=== PATIENT | female | born 1965 | race African-American/Black ===

== ENCOUNTER 2016-06-28 11:21 | Inpatient (IN) | payer BC ==
[~2016-06-28] VITALS: Ht 165.1 cm; Wt 75.7 kg
[~2016-06-28 11:21] MED LIST: ASPI325T4 PO; TOVIAZ; baclofen; hydrochlorothiazide; losartan; multivitamin; tizanidine
[2016-06-28] MEDS ORDERED: IV NORMAL SALINE 1000ML BAG 1,000 ML IV ONE (12:15)
[2016-06-28] MEDS ORDERED: KETOROLAC TROMETHAMINE 30 MG/ML SYRINGE. IV ONE (12:15)
--- NOTE | 2016-06-28 12:28 | PHYS DOC ---
Past Medical History Past Medical History: Hypertension, Other Additional Past Medical Histor: MS Past Surgical History: Other Additional Past Surgical Histo: eye sx x 2, myectomy, DETACHED RETINA R EYE Alcohol Use: None Drug Use: None Adult General Chief Complaint Chief Complaint: FLU SYMPTOM HPI HPI 51-year-old female presents with cough and fever as well as significant weakness for the last day with inability to use her walker that she normally uses. Patient does have history of MS and hypertension. Patient is been unable to take her medications today. She has not been able to eat or drink as well. She denies any significant chest pain or shortness of breath. She denies any nausea or vomiting. She denies any abdominal pain. Review of Systems Review of Systems Constitutional: Has fever, denies chills [] Eyes: Denies change in visual acuity, redness, or eye pain [] HENT: Denies nasal congestion or sore throat [] Respiratory: Has cough, denies shortness of breath [] Cardiovascular: No additional information not addressed in HPI [] GI: Denies abdominal pain, nausea, vomiting, bloody stools or diarrhea [] : Denies dysuria or hematuria [] Musculoskeletal: Denies back pain, has joint pain [] Integument: Denies rash or skin lesions [] Neurologic: Denies headache, focal weakness or sensory changes [] Endocrine: Denies polyuria or polydipsia [] Current Medications Current Medications Current Medications Medications (Trade) Dose Ordered Sig/[facility] Start Time Stop Time Status Last Admin Dose Admin Ketorolac Tromethamine (Toradol) 30 mg 1X ONCE 06/28/16 12:15 06/28/16 12:16 DC 06/28/16 13:03 30 MG Ondansetron HCl 4 mg 4 mg PRN Q8HRS PRN 06/28/16 13:00 06/29/16 12:59 Oseltamivir Phosphate (Tamiflu) 75 mg BID 06/28/16 21:00 07/03/16 20:59 Sodium Chloride (Iv Sodium Chloride 0.9% 1000ml Bag) 1,000 ml @ 125 mls/hr Q8H 06/28/16 13:30 06/29/16 13:29 Allergies Allergies Allergies Coded Allergies Type Severity Reaction Last Updated Verified No Known Drug Allergies 06/10/14 No Physical Exam Physical Exam Constitutional: Well developed, well nourished, no acute distress, non-toxic appearance. [] HENT: Normocephalic, atraumatic, bilateral external ears normal, oropharynx moist, no oral exudates, nose normal. [] Eyes: PERRLA, EOMI, conjunctiva normal, no discharge. [] Neck: Normal range of motion, no tenderness, supple, no stridor. [] Cardiovascular:Heart rate regular rhythm, no murmur [] Lungs & Thorax: Bilateral breath sounds clear to auscultation [] Abdomen: Bowel sounds normal, soft, no tenderness, no masses, no pulsatile masses. [] Skin: Warm, dry, no erythema, no rash. [] Back: No tenderness, no CVA tenderness. [] Extremities: No tenderness, no cyanosis, no clubbing, ROM intact, no edema. [] Neurologic: Alert and oriented X 3, significant bilateral upper and lower extremity weakness, normal sensory function. [] Psychologic: Affect normal, judgement normal, mood normal. [] Current Patient Data Vital Signs Vital Signs Date Time Temp Pulse Resp B/P Pulse Ox O2 Delivery O2 Flow Rate FiO2 06/28/16 11:25 99.6 103 18 164/101 96 Room Air 99.6 Lab Values Laboratory Tests Test 06/28/16 12:00 06/28/16 12:45 Influenza Type A Antigen Positive (NEGATIVE) Influenza Type B Antigen Negative (NEGATIVE) White Blood Count 9.6x10^3/uL (4.0-11.0) Red Blood Count 4.47x10^6/uL (3.50-5.40) Hemoglobin 13.1g/dL (12.0-15.5) Hematocrit 37.8% (36.0-47.0) Mean Corpuscular Volume 85fL (79-100) Mean Corpuscular Hemoglobin 29pg (25-35) Mean Corpuscular Hemoglobin Concent 35g/dL (31-37) Red Cell Distribution Width 13.8% (11.5-14.5) Platelet Count 313x10^3/uL (140-400) Neutrophils (%) (Auto) 78% (31-73) H Lymphocytes (%) (Auto) 7% (24-48) L Monocytes (%) (Auto) 13% (0-9) H Eosinophils (%) (Auto) 1% (0-3) Basophils (%) (Auto) 1% (0-3) Neutrophils # (Auto) 7.5x10^3uL (1.8-7.7) Lymphocytes # (Auto) 0.7x10^3/uL (1.0-4.8) L Monocytes # (Auto) 1.2x10^3/uL (0.0-1.1) H Eosinophils # (Auto) 0.1x10^3/uL (0.0-0.7) Basophils # (Auto) 0.0x10^3/uL (0.0-0.2) Sodium Level 139mmol/L (136-145) Potassium Level 3.6mmol/L (3.5-5.1) Chloride Level 102mmol/L (98-107) Carbon Dioxide Level 26mmol/L (21-32) Anion Gap 11 (6-14) Blood Urea Nitrogen 16mg/dL (7-20) Creatinine 0.8mg/dL (0.6-1.0) Estimated GFR (Cockcroft-Gault) 91.9 Glucose Level 113mg/dL (70-99) H Calcium Level 9.4mg/dL (8.5-10.1) Laboratory Tests 06/28/16 12:45 Laboratory Tests 06/28/16 12:45 EKG EKG [] Radiology/Procedures Radiology/Procedures [] Course & Med Decision Making Course & Med Decision Making Pertinent Labs and Imaging studies reviewed. (See chart for details) This 51 yo female is having a likely MS exacerbation secondary to an ongoing viral illness. Patient has significant weakness in her lower extremities. I will be administering an IV fluid bolus and obtaining lab work. Patient will likely be admitted as she is too weak to use her walker at home. Her rapid influenza panel is positive for influenza type A. I will be ordering her a dose of Tamiflu and admitting her to the hospital for her ongoing weakness secondary to MS exacerbation. She'll continue receive IV fluids in the hospital. Return workup was essentially unrevealing. I discussed the need for her admission with the hospitalist, Dr. Melendez, agreed to accept the patient with neurology consult. The neurologist, Dr. De Souza was also notified about the case. She was admitted without incident. Dragon Disclaimer Dragon Disclaimer This electronic medical record was generated, in whole or in part, using a voice recognition dictation system. Departure Departure Impression: Primary Impression: Influenza A Additional Impression: Exacerbation of multiple sclerosis Disposition: ADMITTED INPATIENT Admitting Physician: Noah Melendez Condition: STABLE Referrals: NOAH MELENDEZ MD (PCP) Problem Qualifiers DANIELLE UMANZOR DO Jun 28, 2016 12:28
[2016-06-28 12:44] LABS: OBC FLU VALID
[2016-06-28] MEDS ORDERED: OSELTAMIVIR 75 MG CAPSULE PO STA (12:45)
[2016-06-28] MEDS ORDERED: ONDANSETRON PF 4 MG/2 ML VIAL. IV PRN ×2 (13:00→17:45)
[2016-06-28 13:04] LABS: BASO % 1 % (0-3); EOS % 1 % (0-3); HEMATOCRIT 37.8 % (36.0-47.0); HEMOGLOBIN 13.1 g/dL (12.0-15.5); LYMPH # 0.7 x10^3/uL (1.0-4.8); LYMPH % 7 % (24-48); MEAN CORPUSCULAR HEMOGLOBIN 29 pg (25-35); MEAN CORPUSCULAR HGB CONC 35 g/dL (31-37); MEAN CORPUSCULAR VOLUME 85 fL (79-100); MONO % 13 % (0-9); NEUT % 78 % (31-73); PLATELET COUNT 313 x10^3/uL (140-400); RED BLOOD COUNT 4.47 x10^6/uL (3.50-5.40); RED CELL DISTRIBUTION WIDTH 13.8 % (11.5-14.5); WHITE BLOOD COUNT 9.6 x10^3/uL (4.0-11.0)
[2016-06-28 13:05] LABS: CALCIUM 9.4 mg/dL (8.5-10.1); CREATININE 0.8 mg/dL (0.6-1.0); GFR 91.9; POTASSIUM 3.6 mmol/L (3.5-5.1)
[2016-06-28] MEDS ORDERED: IV NORMAL SALINE 1000ML BAG 1,000 ML IV SCH (13:30)
--- NOTE | 2016-06-28 15:52 | PDOC2 ---
NEUROLOGY CONSULT Date of Admission Date of Admission DATE: 06/28/16 TIME: 15:43 Reason for Consult Reason for Consult: Multiple sclerosis Referring Physician Referring Physician: Dr. Melendez Source Source: Caregiver, Chart review, Patient History of Present Illness History of Present Illness The patient is a 51-year-old right-handed female with a 20 year history of multiple sclerosis for which she sees Dr. Cazares. She has been found to have influenza a and has exacerbation of her multiple sclerosis symptoms. She is weak all over. She has some blurred vision. Her most recent steroid course was 2 months ago while visiting in [place]. She has been on Tysabri and more recently methotrexate for her disease modification agents, but currently is on no such medication and is planning to speak to Dr. Cazares at her next appointment for future plans in this regard. The patient generally gets around with either a scooter, walker, or cane. She has a neurogenic bladder. She continues to work. Past Medical History Cardiovascular: HTN CENTRAL NERVOUS SYSTEM: Other (MS) Past Surgical History Past Surgical History: Other (eye) Family History Family History: CAD Social History Social History Works for the [employer], no alcohol or tobacco. Current Medications Current Medications Current Medications Sodium Chloride (Iv Sodium Chloride 0.9% 1000ml Bag) 1,000 ml @ 1,000 mls/hr 1X ONCE IV Last administered on 06/28/16 13:02; Start 06/28/16 at 12:15; Stop 06/28/16 at 13:14; Status DC Ketorolac Tromethamine (Toradol) 30 mg 1X ONCE IV Last administered on 13:03; Start 06/28/16 at 12:15; Stop 06/28/16 at 12:16; Status DC Oseltamivir Phosphate (Tamiflu) 75 mg 1X STAT PO Last administered on 13:05; Start 06/28/16 at 12:45; Stop 06/28/16 at 12:48; Status DC Ondansetron HCl 4 mg 4 mg PRN Q8HRS PRN IV NAUSEA/VOMITING; Start 06/28/16 at 13:00; Stop 06/29/16 at 12:59 Sodium Chloride (Iv Sodium Chloride 0.9% 1000ml Bag) 1,000 ml @ 125 mls/hr Q8H IV ; Start 06/28/16 at 13:30; Stop 06/29/16 at 13:29 Oseltamivir Phosphate (Tamiflu) 75 mg BID PO ; Start 06/28/16 at 21:00; Stop at 20:59 Active Scripts Active Reported Aspirin 325 Mg Tablet 1 Tab PO DAILY [multivitamin] [tizanidine] [losartan] [toviaz] [baclofen] [hydrochlorothiazide] Allergies Allergies: Coded Allergies: No Known Drug Allergies (Unverified , 06/10/14) ROS Review of System Positive for dyspnea, dysuria, weakness, otherwise 14 point review of systems is negative. Physical Exam Physical Examination PHYSICAL EXAMINATION: Vital signs: see above. General appearance is normal and in no acute distress. HEENT: Normocephalic and nontraumatic. Eyes, nose, ears, and throat are unremarkable. Neck is supple. No lymphadenopathy. No bruits are heard over the carotid artery. No crepitus. NEUROLOGICAL EXAMINATION: Mental Status Examination: Alert. Oriented to time, place, and person. Answers questions and follows commends. Pupils are equal round and reactive to light and accommodation. Funduscopic exam: No papilledema. Extraocular movements are intact, except for saccadic breakdown of smooth-pursuit. Visual field exam shows no defect on the direct confrontation. No motor or sensory deficits on the facial exam. Uvula in the midline and the soft palate elevated symmetrically. No deviation of the tongue to any direction. Gross hearing is normal. Shoulder shrug normal. Muscle tone is normal. Muscle strength is 2-3/ 5. Deep tendon reflexes are 2+. Plantar reflex is with flexion response bilaterally. [id number] test performance is dysmetric. Alternative movements are accurate. Gait not tested. Sensory exam shows no deficits. No cerebellar signs elicited. Vitals VITALS Vital Signs Date Time Temp Pulse Resp B/P Pulse Ox O2 Delivery O2 Flow Rate FiO2 06/28/16 11:25 99.6 103 18 164/101 96 Room Air 99.6 Labs Labs Laboratory Tests Test 06/28/16 12:00 06/28/16 12:45 Influenza Type A Antigen Positive (NEGATIVE) Influenza Type B Antigen Negative (NEGATIVE) White Blood Count 9.6x10^3/uL (4.0-11.0) Red Blood Count 4.47x10^6/uL (3.50-5.40) Hemoglobin 13.1g/dL (12.0-15.5) Hematocrit 37.8% (36.0-47.0) Mean Corpuscular Volume 85fL (79-100) Mean Corpuscular Hemoglobin 29pg (25-35) Mean Corpuscular Hemoglobin Concent 35g/dL (31-37) Red Cell Distribution Width 13.8% (11.5-14.5) Platelet Count 313x10^3/uL (140-400) Neutrophils (%) (Auto) 78% (31-73) Lymphocytes (%) (Auto) 7% (24-48) Monocytes (%) (Auto) 13% (0-9) Eosinophils (%) (Auto) 1% (0-3) Basophils (%) (Auto) 1% (0-3) Neutrophils # (Auto) 7.5x10^3uL (1.8-7.7) Lymphocytes # (Auto) 0.7x10^3/uL (1.0-4.8) Monocytes # (Auto) 1.2x10^3/uL (0.0-1.1) Eosinophils # (Auto) 0.1x10^3/uL (0.0-0.7) Basophils # (Auto) 0.0x10^3/uL (0.0-0.2) Sodium Level 139mmol/L (136-145) Potassium Level 3.6mmol/L (3.5-5.1) Chloride Level 102mmol/L (98-107) Carbon Dioxide Level 26mmol/L (21-32) Anion Gap 11 (6-14) Blood Urea Nitrogen 16mg/dL (7-20) Creatinine 0.8mg/dL (0.6-1.0) Estimated GFR (Cockcroft-Gault) 91.9 Glucose Level 113mg/dL (70-99) Calcium Level 9.4mg/dL (8.5-10.1) Laboratory Tests Test 06/28/16 12:00 06/28/16 12:45 Influenza Type A Antigen Positive (NEGATIVE) Influenza Type B Antigen Negative (NEGATIVE) White Blood Count 9.6x10^3/uL (4.0-11.0) Red Blood Count 4.47x10^6/uL (3.50-5.40) Hemoglobin 13.1g/dL (12.0-15.5) Hematocrit 37.8% (36.0-47.0) Mean Corpuscular Volume 85fL (79-100) Mean Corpuscular Hemoglobin 29pg (25-35) Mean Corpuscular Hemoglobin Concent 35g/dL (31-37) Red Cell Distribution Width 13.8% (11.5-14.5) Platelet Count 313x10^3/uL (140-400) Neutrophils (%) (Auto) 78% (31-73) Lymphocytes (%) (Auto) 7% (24-48) Monocytes (%) (Auto) 13% (0-9) Eosinophils (%) (Auto) 1% (0-3) Basophils (%) (Auto) 1% (0-3) Neutrophils # (Auto) 7.5x10^3uL (1.8-7.7) Lymphocytes # (Auto) 0.7x10^3/uL (1.0-4.8) Monocytes # (Auto) 1.2x10^3/uL (0.0-1.1) Eosinophils # (Auto) 0.1x10^3/uL (0.0-0.7) Basophils # (Auto) 0.0x10^3/uL (0.0-0.2) Sodium Level 139mmol/L (136-145) Potassium Level 3.6mmol/L (3.5-5.1) Chloride Level 102mmol/L (98-107) Carbon Dioxide Level 26mmol/L (21-32) Anion Gap 11 (6-14) Blood Urea Nitrogen 16mg/dL (7-20) Creatinine 0.8mg/dL (0.6-1.0) Estimated GFR (Cockcroft-Gault) 91.9 Glucose Level 113mg/dL (70-99) Calcium Level 9.4mg/dL (8.5-10.1) Assessment/Plan Assessment/Plan Impression: Multiple sclerosis, she may be having an attack, but with the positive influenza , this may be a pseudo-exacerbation Recommendations: Hold off on steroids Supportive care including rehabilitation modalities. Thank you for letting me help with the patient's care. JANUARY FOOTE MD Jun 28, 2016 15:52
--- NOTE | 2016-06-28 17:49 | PDOC ---
Provider Note Provider Note history and physical dictated # [id number] NOAH BAUGH MD Jun 28, 2016 17:49
[2016-06-28] MEDS ORDERED: CLONIDINE HCL 0.1 MG TABLET PO PRN (18:00)
[2016-06-28 18:24] VITALS: BP 165/107
[2016-06-28 19:00] VITALS: BP 161/107
[2016-06-28] MEDS: ACETAMINOPHEN 325 MG TABLET. PO PRN (19:57)
[2016-06-28] MEDS: POTASSIUM CL 20MEQ D5-0.45NACL 1,000 ML IV SCH (20:00)
[2016-06-28] MEDS ORDERED: TIZA4TAB PO ×3 (20:21)
[2016-06-28] MEDS ORDERED: BACL10TA PO (20:21)
[2016-06-28] MEDS ORDERED: BACL20TA PO (20:21)
[2016-06-28] MEDS ORDERED: HYDR12.58 PO (20:21)
[2016-06-28] MEDS ORDERED: LOSA50TA6 PO (20:21)
[2016-06-28] MEDS ORDERED: MULT1TAB52 PO (20:21)
[2016-06-28] MEDS: tiZANidine 4 MG TABLET. PO SCH ×2 (20:58→21:11)
[2016-06-28] MEDS ORDERED: tiZANidine 4 MG TABLET. PO SCH (21:00)
[2016-06-28] MEDS ORDERED: BACLOFEN 10 MG TABLET PO SCH (21:00)
[2016-06-28] MEDS: OXYBUTYNIN CHLORIDE 5 MG TABLET PO SCH (21:11)
[2016-06-28] MEDS: ENOXAPARIN 40 MG/0.4 ML DISP.SYRIN. SQ SCH (21:11)
[2016-06-28] MEDS: OSELTAMIVIR 75 MG CAPSULE PO SCH (21:11)
[2016-06-28 22:45] VITALS: BP 138/86
--- NOTE | 2016-06-29 00:25 | HP ---
ADMIT DATE: 06/28/2016 HISTORY OF PRESENT ILLNESS: The patient is a 51-year-old female who has a history of multiple sclerosis, hypertension, hypothyroidism and neurogenic bladder notes the onset of 1-day history of fever and cough and decreased appetite and generalized weakness. She is unable to use her electric scooter and mobilize. She sought help at the [facility] Emergency Room where an influenza screen was positive for influenza A. She was subsequently admitted to the hospital for further evaluation and treatment of her influenza and generalized weakness. She is not coughing up any sputum. ALLERGIES AND INTOLERANCES: None. MEDICATIONS: Prior to admission include aspirin 325 mg every day, baclofen 10 mg 1 tablet in the morning and 2 tablets in the afternoon and at bedtime. She is also on folic acid 1 mg every day, hydrochlorothiazide 25 mg every day, levothyroxine 100 mcg every day, losartan 50 mg every day, multiple vitamin 1 every day, oxybutynin ER 5 mg every day, potassium chloride 20 mEq every day and tizanidine 2 mg 1 tablet b.i.d. and 2 tablets at bedtime. PAST MEDICAL HISTORY: Significant for hypertension, hypothyroidism, multiple sclerosis. She has a history of hyperlipidemia. She has a neurogenic bladder, goiter, overactive bladder. She had a myomectomy for fibroids, a detached retina repair for the right eye in 1990 and appendectomy. She has multiple sclerosis. SOCIAL HISTORY: She does not drink alcohol nor does she smoke cigarettes. She has an electric wheelchair. FAMILY HISTORY: Noncontributory. REVIEW OF SYSTEMS: GENERAL: She has had fever and chills. CARDIOVASCULAR: She has had no chest pain. PULMONARY: She has a cough. GASTROINTESTINAL: No constipation. SKIN: No rashes. NEUROLOGIC: She has got increasing generalized weakness. ENDOCRINE: No diabetes mellitus. SKIN: No rashes. The rest of systems reviewed are negative except as stated in the history of present illness. PHYSICAL EXAMINATION: VITAL SIGNS: Temperature is 99.6 degrees, pulse 103, respiratory rate 18, blood pressure 164/101, oxygen saturation 96% room air. HEENT: Eyes: Gaze is conjugate. Extraocular muscles are intact. Mouth: Tongue is midline. NECK: There is no cervical lymphadenopathy or thyroid enlargement. HEART: Reveals an S1, S2. There is no S3 or murmur. LUNGS: Clear anteriorly. ABDOMEN: Soft with no hepatosplenomegaly, masses, or tenderness. LOWER EXTREMITIES: Without edema. SKIN: No rashes. NEUROLOGIC: She has no facial weakness. 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 She is unable to dorsi and plantarflex her feet or bend her knees. SKIN: No rashes. REVIEW OF HER LABORATORY TESTS: The influenza A was positive. White count 9.6, hemoglobin 13.1, platelet count 313,000, polys and 7 lymphocytes. Sodium 139, potassium 3.6, chloride 102, total CO2 of 26, BUN 16, creatinine 0.8, blood sugar 113. Apparently, she did have a stress test done on 06/14/[address] and it was negative. ASSESSMENT: 1. Influenza type A. 2. Pseudo exacerbation of multiple sclerosis secondary to influenza type A. 3. Hypertension. The blood pressure is elevated. 4. Hypothyroidism. 5. Mobility and self-care deficits secondary to influenza A and pseudo exacerbation of multiple sclerosis. PLAN: At this time is to consult Dr. Taylor, he has already seen the patient and we will consult Dr. Bonilla for physical rehabilitation. We will treat her with Tamiflu. Start her on some IV fluids, Tylenol and Zofran p.r.n. Renew her home medications including her blood pressure medicines and order some clonidine 0.1 mg every 6 hours p.r.n. for an elevated blood pressure. We will continue with the baclofen and tizanidine. We will also get a chest x-ray. She will receive physical and occupational therapy, start her on Lovenox for deep vein thrombosis prophylaxis and order a low air mattress and have the nurses turn her frequently in bed. NOAH ABUGH MD DR: TONY/clay JOB#: [id number] / [id number]
--- NOTE | 2016-06-29 01:17 | ACF ---
Admission Forms Criteria SYSTEMIC OR INFECTIOUS CONDITION Clinical Indications for Admission to Inpatient Care (Place 'X' for any and all applicable criteria): Hospital admission is needed for appropriate care of the patient because of ANY ONE of the following: []I. Hemodynamic instability indicated by ANY ONE of the following(1)(2)(3)(4 )(5): []a. Vital sign abnormality not readily corrected by appropriate treatment within 12 to 24 hours indicated by ANY ONE of the following: []i) Tachycardia that persists despite appropriate treatment []ii) Hypotension that persists despite appropriate treatment []iii) Orthostatic vital sign changes that persist despite appropriate treatment []b. Vital sign abnormality that is severe indicated by ANY ONE of the following: []i. Inadequate perfusion indicated by ANY ONE of the following: []1) Lactic acidosis (greater than 2 mmol/L) []2) New abnormal capillary refill (greater than 3 seconds) []3) Reduced urine output []4) New altered mental status []5) Myocardial Ischemia []ii. Mean arterial pressure [A] less than 60 mm Hg []iii. Mean arterial pressure[A] less than 70 mm Hg after 30 minutes of appropriate treatment (eg, fluid resuscitation) []iv. Sustained heart rate greater than 120 beats per minute in adult []v. IV inotropic or vasopressor medication required to maintain adequate blood pressure or perfusion []II. Systemic or infectious condition causing severe symptoms or findings not responsive to emergency or observation care treatment (as appropriate) indicated by ANY ONE of the following: []a. Cardiac arrhythmias of immediate concern(1)(2)(3) []b. Severe endocrine disorder (eg, thyrotoxicosis, adrenal insufficiency)(4)(5) []c. Seizures (eg, new or recurrent)(6) []d. New-onset end organ failure or dysfunction as indicated by ANY ONE of the following: []i. Acute unexplained hypoxemia (eg, not from lung infection or chronic disease)(7)(8)(9) []ii. Acute renal failure as indicated by new onset of ANY ONE of the following(10)(11)(12)(13)(14): []1) 3-fold rise in serum creatinine from baseline []2) Serum creatinine greater than 4 mg/dL (354 micromoles/L) with acute rise greater than 0.5 mg/dL (44.2 micromoles/L) []3) Reduction of more than 75% in estimated glomerular filtration rate from baseline. []4) Estimated glomerular filtration rate less than 35 mL/min/1.73m2 ( 0.59 mL/sec/1.73m2) in child younger than 18 years. []5) Cessation of urine output indicated by ALL of the following: []A. Adequate volume status []B. Inadequate urine output as indicated by ANY ONE of the following: []a. Urine output less than 0.3 mL/kg/hr for 24 hours []b. Anuria (urine output less than 0.1 mL/kg/hr) for 12 hours []iii. Acute mental status changes(15) []iv. Acute hepatic failure (eg, plasma bilirubin greater than 4 mg/ dL (68 micromoles/L), new INR greater than 2.0)(16)(17) []e. Unmanageable nausea and vomiting(18) []f. New-onset or uncontrolled central diabetes insipidus(19)(20) []g. Clinically significant dehydration(18)(21) []h. Hypoglycemia(22) []i. Acidosis (pH less than 7.35) or alkalosis (pH greater than 7.45)( 22)(23) []j. Toxic drug level that indicates need for specific monitoring or treatment(24)(25) []k. Severe electrolyte abnormalities indicated by ALL of the following( 1)(2)(3): []i. Electrolytes and associated findings are not as expected for patient baseline or acceptable treatment effects. []ii. Severe abnormalities indicated by ANY ONE of the following: []1) Sodium less than 130 mEq/L (mmol/L) (new) []2) Sodium less than 135 mEq/L (mmol/L) with ANY ONE of the following: []A. Uncorrectable (to near normal or chronic baseline) after trial of outpatient and emergency treatment []B. Altered mental status []C. Seizures []D. Severe medical etiology requiring inpatient management (eg , heart failure, hypovolemia) []3) Sodium greater than 155 mEq/L (mmol/L) []4) Sodium greater than 150 mEq/L (mmol/L) with ANY ONE of the following: []A. Uncorrectable (to near normal or chronic baseline) with outpatient and emergency treatment []B. Altered mental status []C. Seizures []D. Severe medical etiology (eg, hypovolemia, diabetes insipidus) []5) Potassium less than 2.5 mEq/L (mmol/L) despite outpatient and emergency treatment []6) Potassium less than 3 mEq/L (mmol/L) with ANY ONE of the following : []A. Weakness []B. Cardiac abnormality (eg, arrhythmia, conduction disturbance ) []C. Cardiac ischemia []D. Ileus []E. Ongoing medical cause requiring inpatient management (eg, acute renal wasting or SIADH) []F. Other severe symptoms []7) Potassium greater than 6.5 mEq/L (mmol/L) []8) Potassium greater than 5 mEq/L (mmol/L) with ANY ONE of the following: []A. Uncorrectable (to near normal or chronic baseline) with outpatient and emergency treatment []B. Severe ECG findings[A] []C. Acute worsening of renal failure (creatinine greater than 2.5 mg/dL (221 micromoles/L) or significant elevation for age and size) []D. Severe weakness []E. Severe medical etiology (eg, hemolysis, infection, drug overdose) []9) Calcium less than 7 mg/dL (1.75 mmol/L) despite outpatient and emergency treatment(5) []10) Calcium less than 8 mg/dL (2 mmol/L) with significant symptoms or findings (eg, altered mental status, muscle spasms, seizures, breathing difficulty, cardiac abnormality (eg, arrhythmia or conduction disturbance))(5) []11) Calcium greater than 14 mg/dL (3.5 mmol/L)(5) []12) Calcium greater than 12 mg/dL (3 mmol/L) with ANY ONE of the following(5): []A. Uncorrectable (to near normal or chronic baseline) with outpatient and emergency treatment []B. Significant dehydration or hypovolemia as indicated by ALL of the following(3)(6)(7): []a. Not resolved with initial treatments []b. Clinically significant dehydration as indicated by ANY ONE of the following: [](1) Vomiting refractory to outpatient treatment (ie, precluding oral rehydration) [](2) Inability to drink [](3) Hypernatremia or other electrolyte abnormality unable to be corrected with outpatient and emergency treatment [](4) Failure to remain hydrated with outpatient therapy [](5) Reduced urine output [](6) Hypotension [](7) Serious cause for dehydration requiring acute hospitalization ( eg, bowel obstruction, increased intracranial pressure, infectious cause) [](8) Child with ANY ONE of the following(8): [](i) Severe abdominal tenderness [](ii) Adequate care not available at home [](iii) Severe dehydration (greater than 9% loss of body weight) []C. Significant symptoms or findings (eg, altered mental status , cardiac abnormality (eg, arrhythmia, conduction disturbance), malignant etiology requiring inpatient treatment) []13) Phosphorus less than 1 mg/dL (0.32 mmol/L) []14) Phosphorus less than 1.5 mg/dL (0.48 mmol/L) with ANY ONE of the following: []A. Patient unresponsive to outpatient and emergency treatment []B. Significant symptoms or findings (eg, weakness, altered mental status, breathing difficulty, seizures, rhabdomyolysis) []15) Phosphorus greater than 10 mg/dL (3.2 mmol/L) []16) Phosphorus greater than 4.5 mg/dL (1.45 mmol/L) (new) with ANY ONE of the following: []A. Severe medical etiology (eg, crush injury, acute renal failure) []B. Associated hypocalcemia with significant findings (eg, neurologic symptoms, altered mental status, muscle spasms, seizures, breathing difficulty, cardiac abnormality (eg, arrhythmia, conduction disturbance)) []16) Magnesium less than 1 mg/dL (0.41 mmol/L) []17) Magnesium less than 1.5 mg/dL (0.62 mmol/L) with ANY ONE of the following: []A. Patient unresponsive to outpatient and emergency treatment []B. Associated hypocalcemia with significant findings (eg, altered mental status, muscle spasms, seizures, breathing difficulty, cardiac abnormality (eg, arrhythmia, conduction disturbance)) []C. Associated hypokalemia (potassium less than 3 mEq/L (mmol/L )) with risk of arrhythmia []18) Magnesium greater than 4 mEq/L (2 mmol/L) []19) Magnesium greater than 2.5 mEq/L (1.25 mmol/L) with significant symptoms or findings (eg, weakness, altered mental status, cardiac abnormality (eg, arrhythmia, conduction disturbance), breathing difficulty, severe medical etiology (eg, renal failure, hypovolemia)) []20) Uric acid greater than 20 mg/dL (1190 micromoles/L)(9) []21) Uric acid greater than 8 mg/dL (476 micromoles/L) with significant symptoms or findings of tumor lysis syndrome (eg, creatinine greater than 1.5 times upper limit of normal, cardiac abnormality (eg , arrhythmia, conduction disturbance), seizure)(9) []III. High fever or other high-risk infection situation as indicated by ANY ONE of the following(26)(27)(28): []a. Outpatient and observation care antimicrobial treatment unavailable, not effective, or not appropriate []b. Documented bacteremia []c. Temperature greater than 104.9 degrees F (40.5 degrees C) (oral) []d. Temperature greater than 103.1 degrees F (39.5 degrees C) (oral) or less than 96.8 degrees F (36 degrees C) (rectal) that does not respond to emergency treatment and observation care []IV. High-risk febrile neutropenia[A] as indicated by ANY ONE of the following(29)(30)(31)(32): []a. Profound neutropenia[B] anticipated to extend for more than 7 days []b. Hemodynamic instability []c. Hypoxemia []d. Tachypnea []e. Altered mental status []f. New-onset abdominal pain []g. New-onset vomiting or diarrhea []h. Oral or gastrointestinal mucositis that interferes with swallowing or causes severe diarrhea []i. Focal infection (eg, cellulitis, pneumonia, central line or catheter infection, perirectal abscess) []j. Renal insufficiency (eg, GFR of less than 30 mL/min/1.73m2 (0.5 mL/sec /1.73m2)). []k. Severe liver dysfunction (transaminase levels greater than 5 times normal) []l. Platelet count less than 50,000/mm3 (50 x109/L)(33) []m. Leukemia or lymphoma induction therapy []n. Leukemia not in complete remission or with evidence of disease progression []o. Bone marrow transplant patient []p. Alemtuzumab being used for therapy []q. [employer] for Supportive Care in Cancer (MASCC) Risk Index score of less than 21[C](33)(35). []V. Isolation required (eg, tuberculosis that requires isolation, Ebola infection)[D](36)(37)(38)(39)(40) []. Gangrene that requires treatment beyond emergency or observation level care(41)(42) []VII. Antitoxin administration and ongoing observation required (eg, tetanus, botulism)(43)(44) [X]. Suspected infection with rapid progression or severe symptoms as indicated by ANY ONE of the following(45): []a. Streptococcal or staphylococcal toxic shock(46) []b. Diphtheria(47) []c. Hantavirus(48) []d. Severe acute respiratory syndrome(8)(49) []e. Anthrax(50) []f. Ebola[D](36)(37)(38) []g. Necrotizing soft tissue infection(41)(42) []h. Plague(50) [X]i. Other suspected infection that requires care beyond emergency or observation level care []VII. Severe adverse drug or systemic toxin reaction as indicated by ANY ONE of the following(24): []a. Serotonin syndrome(51)(52) []b. Neuroleptic malignant syndrome(51)(52) []c. Cholinergic syndrome with severe symptoms (eg, bronchorrhea, weakness , mental status changes, seizures)(53) []d. Anticholinergic syndrome []e. Sympathetic syndrome with severe symptoms (eg, seizures, mental status changes, cardiac dysrhythmias) []f. Other severe adverse drug or systemic toxin reaction that remains after emergency or observation level care (as appropriate) []VIII. Allergic reaction with severe symptoms (not responsive to emergency or observation care treatment as appropriate), including ANY ONE of the following(54): []a. Airway edema (pharyngeal, epiglottic, or laryngeal edema) []b. Stridor []c. Respiratory failure []d. Bronchospasm []e. Hypotension []IX. Environmental emergency (not responsive to emergency or observation care treatment as appropriate) as indicated by ANY ONE of the following(55)(56): []a. Hyperthermia []b. Heat stroke []c. Heat exhaustion []d. Hypothermia (temperature less than 95 degrees F (35 degrees C) rectal) (57) []e. Electrocution(58) []X. Complications of transplanted organ (ie, not covered elsewhere)[E] indicated by ANY ONE of the following(59): []a. Acute graft rejection (or graft vs. host disease)[F] requiring inpatient management (eg, intravenous immunosuppression)(60)(61)(62)( 63) []b. Acute failure of transplanted organ necessitating inpatient care (eg, cannot be managed in other setting) []c. Infection requiring inpatient management (eg, Hemodynamic instability, need for intravenous antimicrobial treatment)(64)(65) []d. Other complication of transplanted organ requiring inpatient management []XI. Systemic or Infectious Condition condition, symptom, or finding for which emergency and observation care have failed or are not considered appropriate. See General Criteria: Observation Care, General Admission Criteria or Pediatric General Admission Criteria guideline as appropriate. [facility] content created by [facility] has been revised. The portions of the content which have been revised are identified through the use of italic text or in bold and [facility] has neither reviewed nor approved the modified material. All other unmodified content is copyright [facility]. Please see references footnoted in the original [facility] edition 2016 Admission Criteria Met?: Yes DMITRY FITZGERALD Jun 29, 2016 01:17
[2016-06-29] MEDS: ACETAMINOPHEN 325 MG TABLET. PO PRN ×2 (02:18→08:47)
[2016-06-29 02:48] VITALS: BP 114/88
[2016-06-29 06:10] LABS: BASO % 1 % (0-3); EOS % 1 % (0-3); HEMATOCRIT 33.4 % (36.0-47.0); HEMOGLOBIN 12.1 g/dL (12.0-15.5); LYMPH % 17 % (24-48); MEAN CORPUSCULAR HEMOGLOBIN 30 pg (25-35); MEAN CORPUSCULAR HGB CONC 36 g/dL (31-37); MEAN CORPUSCULAR VOLUME 83 fL (79-100); MONO % 17 % (0-9); NEUT % 65 % (31-73); PLATELET COUNT 267 x10^3/uL (140-400); RED BLOOD COUNT 4.04 x10^6/uL (3.50-5.40); RED CELL DISTRIBUTION WIDTH 13.7 % (11.5-14.5); WHITE BLOOD COUNT 6.4 x10^3/uL (4.0-11.0)
[2016-06-29 06:13] LABS: ALBUMIN 3.1 g/dL (3.4-5.0); ALBUMIN/GLOBULIN RATIO 0.8 (1.0-1.7); CALCIUM 8.7 mg/dL (8.5-10.1); CREATININE 0.8 mg/dL (0.6-1.0); GFR 91.9; POTASSIUM 3.3 mmol/L (3.5-5.1); TOTAL BILIRUBIN 0.6 mg/dL (0.2-1.0); TOTAL PROTEIN 6.8 g/dL (6.4-8.2)
[2016-06-29 07:00] VITALS: BP 170/104
--- NOTE | 2016-06-29 07:14 | RAD ---
Portable chest, 06/28/2016: History: Flu, MS, cough Comparison is made to a study from 05/03/2016. The heart size and pulmonary vascularity are normal. No pulmonary infiltrates are seen. There is no evidence of pleural fluid. IMPRESSION: No acute cardiopulmonary abnormality is detected.
[2016-06-29] MEDS: POTASSIUM CHLORIDE 20 MEQ TABLET.ER. PO SCH (08:46)
[2016-06-29] MEDS: BACLOFEN 10 MG TABLET PO SCH ×2 (08:47→20:10)
[2016-06-29] MEDS: MULTIVITAMIN with MINERAL TABLET. PO SCH (08:47)
[2016-06-29] MEDS: OXYBUTYNIN CHLORIDE 5 MG TABLET PO SCH ×3 (08:47→20:09)
[2016-06-29] MEDS: HYDROCHLOROTHIAZIDE 25 MG TABLET PO SCH (08:48)
[2016-06-29] MEDS: ASPIRIN 325 MG TABLET PO SCH (08:49)
[2016-06-29] MEDS: tiZANidine 4 MG TABLET. PO SCH ×3 (08:49→20:11)
[2016-06-29] MEDS: LOSARTAN POTASSIUM 50 MG TABLET. PO SCH (08:50)
[2016-06-29] MEDS: OSELTAMIVIR 75 MG CAPSULE PO SCH ×2 (08:50→20:10)
[2016-06-29] MEDS ORDERED: POTASSIUM CHLORIDE 20 MEQ/15 ML ORAL LIQUID. PO ONE ×2 (09:00→14:15)
[2016-06-29] MEDS: LEVOTHYROXINE 100 MCG TABLET PO SCH (10:15)
[2016-06-29] MEDS: POTASSIUM CL 20MEQ D5-0.45NACL 1,000 ML IV SCH (10:16)
[2016-06-29 10:54] VITALS: BP 129/93
--- NOTE | 2016-06-29 12:11 | PDOC ---
PROGRESS NOTES Assessment Problems Medical Problems: (1) Exacerbation of multiple sclerosis Status: Acute (2) Influenza A Status: Acute Influenza A, already feeling better Multiple sclerosis pseudo-exacerbation, also better Plan Continue supportive care Holding on immunosuppression treatment Subjective Feels better Objective Vital Signs Date Time Temp Pulse Resp B/P Pulse Ox O2 Delivery O2 Flow Rate FiO2 06/29/16 10:54 99.7 74 18 129/93 95 Room Air 99.7 Intake and Output 06/29/16 07:00 Intake Total 1900 ml Balance 1900 ml Intake Oral 900 ml IV Total 1000 ml # Voids 1 PHYSICAL EXAM Alert. Oriented to time, place and person. PERRL. EOMI. CN: no focal findings. Muscle tone: normal. Muscle strength: 2/5 legs, 4/5 arms DTR: 2+ Plantar reflex: silent Gait: not examined in bed. Sensory exam: no abnormal findings. No cerebellar signs elicited. Review of Relevant I have reviewed the following items bridgette (where applicable) has been applied. Labs Laboratory Tests Test 06/28/16 12:00 06/28/16 12:45 06/29/16 04:40 Influenza Type A Antigen Positive (NEGATIVE) Influenza Type B Antigen Negative (NEGATIVE) White Blood Count 9.6x10^3/uL (4.0-11.0) 6.4x10^3/uL (4.0-11.0) Red Blood Count 4.47x10^6/uL (3.50-5.40) 4.04x10^6/uL (3.50-5.40) Hemoglobin 13.1g/dL (12.0-15.5) 12.1g/dL (12.0-15.5) Hematocrit 37.8% (36.0-47.0) 33.4% (36.0-47.0) Mean Corpuscular Volume 85fL (79-100) 83fL (79-100) Mean Corpuscular Hemoglobin 29pg (25-35) 30pg (25-35) Mean Corpuscular Hemoglobin Concent 35g/dL (31-37) 36g/dL (31-37) Red Cell Distribution Width 13.8% (11.5-14.5) 13.7% (11.5-14.5) Platelet Count 313x10^3/uL (140-400) 267x10^3/uL (140-400) Neutrophils (%) (Auto) 78% (31-73) 65% (31-73) Lymphocytes (%) (Auto) 7% (24-48) 17% (24-48) Monocytes (%) (Auto) 13% (0-9) 17% (0-9) Eosinophils (%) (Auto) 1% (0-3) 1% (0-3) Basophils (%) (Auto) 1% (0-3) 1% (0-3) Neutrophils # (Auto) 7.5x10^3uL (1.8-7.7) 4.2x10^3uL (1.8-7.7) Lymphocytes # (Auto) 0.7x10^3/uL (1.0-4.8) 1.0x10^3/uL (1.0-4.8) Monocytes # (Auto) 1.2x10^3/uL (0.0-1.1) 1.1x10^3/uL (0.0-1.1) Eosinophils # (Auto) 0.1x10^3/uL (0.0-0.7) 0.0x10^3/uL (0.0-0.7) Basophils # (Auto) 0.0x10^3/uL (0.0-0.2) 0.0x10^3/uL (0.0-0.2) Sodium Level 139mmol/L (136-145) 143mmol/L (136-145) Potassium Level 3.6mmol/L (3.5-5.1) 3.3mmol/L (3.5-5.1) Chloride Level 102mmol/L (98-107) 106mmol/L (98-107) Carbon Dioxide Level 26mmol/L (21-32) 24mmol/L (21-32) Anion Gap 11 (6-14) 13 (6-14) Blood Urea Nitrogen 16mg/dL (7-20) 12mg/dL (7-20) Creatinine 0.8mg/dL (0.6-1.0) 0.8mg/dL (0.6-1.0) Estimated GFR (Cockcroft-Gault) 91.9 91.9 Glucose Level 113mg/dL (70-99) 122mg/dL (70-99) Calcium Level 9.4mg/dL (8.5-10.1) 8.7mg/dL (8.5-10.1) BUN/Creatinine Ratio 15 (6-20) Total Bilirubin 0.6mg/dL (0.2-1.0) Aspartate Amino Transf (AST/SGOT) 19U/L (15-37) Alanine Aminotransferase (ALT/SGPT) 17U/L (14-59) Alkaline Phosphatase 69U/L (46-116) Total Protein 6.8g/dL (6.4-8.2) Albumin 3.1g/dL (3.4-5.0) Albumin/Globulin Ratio 0.8 (1.0-1.7) Laboratory Tests Test 06/28/16 12:45 06/29/16 04:40 White Blood Count 9.6x10^3/uL (4.0-11.0) 6.4x10^3/uL (4.0-11.0) Red Blood Count 4.47x10^6/uL (3.50-5.40) 4.04x10^6/uL (3.50-5.40) Hemoglobin 13.1g/dL (12.0-15.5) 12.1g/dL (12.0-15.5) Hematocrit 37.8% (36.0-47.0) 33.4% (36.0-47.0) Mean Corpuscular Volume 85fL (79-100) 83fL (79-100) Mean Corpuscular Hemoglobin 29pg (25-35) 30pg (25-35) Mean Corpuscular Hemoglobin Concent 35g/dL (31-37) 36g/dL (31-37) Red Cell Distribution Width 13.8% (11.5-14.5) 13.7% (11.5-14.5) Platelet Count 313x10^3/uL (140-400) 267x10^3/uL (140-400) Neutrophils (%) (Auto) 78% (31-73) 65% (31-73) Lymphocytes (%) (Auto) 7% (24-48) 17% (24-48) Monocytes (%) (Auto) 13% (0-9) 17% (0-9) Eosinophils (%) (Auto) 1% (0-3) 1% (0-3) Basophils (%) (Auto) 1% (0-3) 1% (0-3) Neutrophils # (Auto) 7.5x10^3uL (1.8-7.7) 4.2x10^3uL (1.8-7.7) Lymphocytes # (Auto) 0.7x10^3/uL (1.0-4.8) 1.0x10^3/uL (1.0-4.8) Monocytes # (Auto) 1.2x10^3/uL (0.0-1.1) 1.1x10^3/uL (0.0-1.1) Eosinophils # (Auto) 0.1x10^3/uL (0.0-0.7) 0.0x10^3/uL (0.0-0.7) Basophils # (Auto) 0.0x10^3/uL (0.0-0.2) 0.0x10^3/uL (0.0-0.2) Sodium Level 139mmol/L (136-145) 143mmol/L (136-145) Potassium Level 3.6mmol/L (3.5-5.1) 3.3mmol/L (3.5-5.1) Chloride Level 102mmol/L (98-107) 106mmol/L (98-107) Carbon Dioxide Level 26mmol/L (21-32) 24mmol/L (21-32) Anion Gap 11 (6-14) 13 (6-14) Blood Urea Nitrogen 16mg/dL (7-20) 12mg/dL (7-20) Creatinine 0.8mg/dL (0.6-1.0) 0.8mg/dL (0.6-1.0) Estimated GFR (Cockcroft-Gault) 91.9 91.9 Glucose Level 113mg/dL (70-99) 122mg/dL (70-99) Calcium Level 9.4mg/dL (8.5-10.1) 8.7mg/dL (8.5-10.1) BUN/Creatinine Ratio 15 (6-20) Total Bilirubin 0.6mg/dL (0.2-1.0) Aspartate Amino Transf (AST/SGOT) 19U/L (15-37) Alanine Aminotransferase (ALT/SGPT) 17U/L (14-59) Alkaline Phosphatase 69U/L (46-116) Total Protein 6.8g/dL (6.4-8.2) Albumin 3.1g/dL (3.4-5.0) Albumin/Globulin Ratio 0.8 (1.0-1.7) Medications Current Medications Sodium Chloride (Iv Sodium Chloride 0.9% 1000ml Bag) 1,000 ml @ 1,000 mls/hr 1X ONCE IV Last administered on 06/28/16 13:02; Start 06/28/16 at 12:15; Stop 06/28/16 at 13:14; Status DC Ketorolac Tromethamine (Toradol) 30 mg 1X ONCE IV Last administered on 13:03; Start 06/28/16 at 12:15; Stop 06/28/16 at 12:16; Status DC Oseltamivir Phosphate (Tamiflu) 75 mg 1X STAT PO Last administered on 13:05; Start 06/28/16 at 12:45; Stop 06/28/16 at 12:48; Status DC Ondansetron HCl 4 mg 4 mg PRN Q8HRS PRN IV NAUSEA/VOMITING; Start 06/28/16 at 13:00; Stop 06/29/16 at 12:59 Sodium Chloride (Iv Sodium Chloride 0.9% 1000ml Bag) 1,000 ml @ 125 mls/hr Q8H IV ; Start 06/28/16 at 13:30; Stop 06/28/16 at 17:43; Status DC Oseltamivir Phosphate 75 mg 75 mg BID PO Last administered on 06/29/16 08:50; Start 06/28/16 at 21:00; Stop 07/03/16 at 20:59 Potassium Chloride/Dextrose/ Sod Cl (KCl 20 Meq In D5W-1/2 NS) 1,000 ml @ 75 mls/hr [id number] IV Last administered on 06/29/16 10:16; Start 06/28/16 at 19:00 Enoxaparin Sodium (Lovenox 40mg Syringe) 40 mg Q24H SQ Last administered on 21:11; Start 06/28/16 at 21:00 Acetaminophen (Tylenol) 650 mg PRN Q4HRS PRN PO MILD PAIN / TEMP Last administered on 06/29/16 08:47; Start 06/28/16 at 17:45 Aspirin (Emiliano Aspirin) 325 mg [id number] PO Last administered on 06/29/16 08: 49; Start 06/29/16 at 08:00 Baclofen (Lioresal) 10 mg BID PO ; Start 06/28/16 at 21:00; Stop 06/28/16 at 21: 00; Status DC Baclofen (Lioresal) 20 mg DAILY16 PO ; Start 06/29/16 at 16:00; Stop 06/29/16 at 16:00; Status DC Hydrochlorothiazide (Hydrodiuril) 25 mg DAILY PO Last administered on 08:48; Start 06/29/16 at 09:00 Levothyroxine Sodium (Synthroid) 100 mcg DAILY07 PO Last administered on 10:15; Start 06/29/16 at 07:00 Losartan Potassium (Cozaar) 50 mg DAILY PO Last administered on 06/29/16 08:50 ; Start 06/29/16 at 09:00 Multivitamins/ Calcium (Thera M Plus) 1 tab DAILY PO Last administered on 08:47; Start 06/29/16 at 09:00 Oxybutynin Chloride (Ditropan) 5 mg [id number] PO Last administered on 06/29/16 08 :47; Start 06/28/16 at 21:00 Potassium Chloride (Klor-Con) 20 meq DAILYWBKFT PO Last administered on 08:46; Start 06/29/16 at 08:00 Tizanidine HCl (Zanaflex) 4 mg QHS PO ; Start 06/28/16 at 21:00; Stop 06/28/16 at 21:00; Status DC Tizanidine HCl (Zanaflex) 2 mg BID PO Last administered on 06/29/16 08:49; Start 06/28/16 at 21:00 Ondansetron HCl (Zofran) 4 mg PRN Q6HRS PRN IV NAUSEA/VOMITING; Start 06/28/16 at 17:45 Baclofen (Lioresal) 10 mg DAILY08 PO Last administered on 06/29/16t 08:47; Start 06/29/16 at 08:00 Baclofen (Lioresal) 20 mg BID@14,21 PO ; Start 06/29/16 at 21:00 Tizanidine HCl (Zanaflex) 4 mg QHS PO Last administered on 06/28/16t 21:11; Start 06/28/16 at 21:00 Clonidine HCl (Catapres) 0.1 mg PRN Q6HRS PRN PO HYPERTENSION, SEE COMMENTS; Start 06/28/16 at 18:00 Active Scripts Active Reported Tizanidine Hcl 4 Mg Tablet 4 Mg PO DAILYBFRSUP Tizanidine Hcl 4 Mg Tablet 2 Mg PO DAILY07 Tizanidine Hcl 4 Mg Tablet 1 Tab PO QHS Multivitamins (Multivitamin) 1 Each Tablet 1 Each PO DAILY Hydrochlorothiazide Tablet (Hydrochlorothiazide) 12.5 Mg Tablet 1 Tab PO DAILY Baclofen 20 Mg Tablet 20 Mg PO BIDACLD Baclofen 10 Mg Tablet 10 Mg PO DAILY07 Losartan Potassium 50 Mg Tablet 50 Mg PO DAILY Aspirin 325 Mg Tablet 1 Tab PO DAILY [multivitamin] [tizanidine] [losartan] [baclofen] [hydrochlorothiazide] Vitals/I & O Vital Sign - Last 24 Hours 06/28/16 06/28/16 06/28/16 06/28/16 13:00 13:30 14:00 14:30 Pulse 104 100 104 100 Resp 17 B/P 169/95 155/89 139/83 141/73 Pulse Ox 98 93 93 96 O2 Delivery Room Air Room Air Room Air Room Air 06/28/16 06/28/16 06/28/16 06/28/16 15:00 15:30 16:00 17:30 Pulse 92 108 100 92 Resp 17 20 B/P 139/78 143/84 159/59 177/96 Pulse Ox 94 94 94 92 O2 Delivery Room Air Room Air Room Air Room Air 06/28/16 06/28/16 06/28/16 06/28/16 18:00 18:24 19:00 20:00 Temp 101.0 102.7 101.0 102.7 Pulse 99 121 Resp 18 18 B/P 171/93 165/107 161/107 Pulse Ox 95 97 O2 Delivery Room Air Room Air Room Air 06/28/16 06/28/16 06/29/16 06/29/16 21:46 22:45 02:48 07:00 Temp 102.9 99.9 99.2 102.9 99.9 99.2 Pulse 112 83 82 Resp 18 18 18 B/P 138/86 114/88 170/104 Pulse Ox 95 99 99 O2 Delivery Room Air Room Air Room Air Room Air 06/29/16 06/29/16 06/29/16 08:00 08:50 10:54 Temp 99.7 99.7 Pulse 82 74 Resp 18 B/P 170/104 129/93 Pulse Ox 95 O2 Delivery Room Air Room Air Intake and Output 06/28/16 06/28/16 06/29/16 15:00 23:00 07:00 Intake Total 1000 ml 900 ml Balance 1000 ml 900 ml JANUARY FOOTE MD Jun 29, 2016 12:11
--- NOTE | 2016-06-29 12:44 | PDOC ---
PROGRESS NOTES Subjective Subjective spiked a fever last night but low grade fever now. eating breakfast. feels better. dry cough. cxr negative. lab reviewed., blood pressure is better. Objective Objective Vital Signs Date Time Temp Pulse Resp B/P Pulse Ox O2 Delivery O2 Flow Rate FiO2 06/29/16 10:54 99.7 74 18 129/93 95 Room Air 99.7 Intake and Output 06/29/16 07:00 Intake Total 1900 ml Balance 1900 ml Intake Oral 900 ml IV Total 1000 ml # Voids 1 Physical Exam Abdomen: Soft Heart: Regular rate, Normal S1, Normal S2 Extremities: No edema General: Alert HEENT: Atraumatic Lungs: Clear to auscultation MUSCULOSKELETAL: Other (legs weak) Neuro: Normal speech Psych/Mental Status: Mental status NL Skin: No rashes Assessment Assessment Problems Medical Problems:1. Influenza type A. 2. Pseudo exacerbation of multiple sclerosis secondary to influenza type A. 3. Hypertension. The blood pressure is elevated. 4. Hypothyroidism. 5. Mobility and self-care deficits secondary to influenza A and pseudo exacerbation of multiple sclerosis. fever hypokalemia (1) Exacerbation of multiple sclerosis Status: Acute (2) Influenza A Status: Acute Plan Plan of Care tamiflu iv fluids replete kcl PT and OT consider MARH when medically stable urinalysis Comment Review of Relevant I have reviewed the following items bridgette (where applicable) has been applied. Labs Laboratory Tests Test 06/28/16 12:00 06/28/16 12:45 06/29/16 04:40 Influenza Type A Antigen Positive (NEGATIVE) Influenza Type B Antigen Negative (NEGATIVE) White Blood Count 9.6x10^3/uL (4.0-11.0) 6.4x10^3/uL (4.0-11.0) Red Blood Count 4.47x10^6/uL (3.50-5.40) 4.04x10^6/uL (3.50-5.40) Hemoglobin 13.1g/dL (12.0-15.5) 12.1g/dL (12.0-15.5) Hematocrit 37.8% (36.0-47.0) 33.4% (36.0-47.0) Mean Corpuscular Volume 85fL (79-100) 83fL (79-100) Mean Corpuscular Hemoglobin 29pg (25-35) 30pg (25-35) Mean Corpuscular Hemoglobin Concent 35g/dL (31-37) 36g/dL (31-37) Red Cell Distribution Width 13.8% (11.5-14.5) 13.7% (11.5-14.5) Platelet Count 313x10^3/uL (140-400) 267x10^3/uL (140-400) Neutrophils (%) (Auto) 78% (31-73) 65% (31-73) Lymphocytes (%) (Auto) 7% (24-48) 17% (24-48) Monocytes (%) (Auto) 13% (0-9) 17% (0-9) Eosinophils (%) (Auto) 1% (0-3) 1% (0-3) Basophils (%) (Auto) 1% (0-3) 1% (0-3) Neutrophils # (Auto) 7.5x10^3uL (1.8-7.7) 4.2x10^3uL (1.8-7.7) Lymphocytes # (Auto) 0.7x10^3/uL (1.0-4.8) 1.0x10^3/uL (1.0-4.8) Monocytes # (Auto) 1.2x10^3/uL (0.0-1.1) 1.1x10^3/uL (0.0-1.1) Eosinophils # (Auto) 0.1x10^3/uL (0.0-0.7) 0.0x10^3/uL (0.0-0.7) Basophils # (Auto) 0.0x10^3/uL (0.0-0.2) 0.0x10^3/uL (0.0-0.2) Sodium Level 139mmol/L (136-145) 143mmol/L (136-145) Potassium Level 3.6mmol/L (3.5-5.1) 3.3mmol/L (3.5-5.1) Chloride Level 102mmol/L (98-107) 106mmol/L (98-107) Carbon Dioxide Level 26mmol/L (21-32) 24mmol/L (21-32) Anion Gap 11 (6-14) 13 (6-14) Blood Urea Nitrogen 16mg/dL (7-20) 12mg/dL (7-20) Creatinine 0.8mg/dL (0.6-1.0) 0.8mg/dL (0.6-1.0) Estimated GFR (Cockcroft-Gault) 91.9 91.9 Glucose Level 113mg/dL (70-99) 122mg/dL (70-99) Calcium Level 9.4mg/dL (8.5-10.1) 8.7mg/dL (8.5-10.1) BUN/Creatinine Ratio 15 (6-20) Total Bilirubin 0.6mg/dL (0.2-1.0) Aspartate Amino Transf (AST/SGOT) 19U/L (15-37) Alanine Aminotransferase (ALT/SGPT) 17U/L (14-59) Alkaline Phosphatase 69U/L (46-116) Total Protein 6.8g/dL (6.4-8.2) Albumin 3.1g/dL (3.4-5.0) Albumin/Globulin Ratio 0.8 (1.0-1.7) Laboratory Tests Test 06/28/16 12:45 06/29/16 04:40 White Blood Count 9.6x10^3/uL (4.0-11.0) 6.4x10^3/uL (4.0-11.0) Red Blood Count 4.47x10^6/uL (3.50-5.40) 4.04x10^6/uL (3.50-5.40) Hemoglobin 13.1g/dL (12.0-15.5) 12.1g/dL (12.0-15.5) Hematocrit 37.8% (36.0-47.0) 33.4% (36.0-47.0) Mean Corpuscular Volume 85fL (79-100) 83fL (79-100) Mean Corpuscular Hemoglobin 29pg (25-35) 30pg (25-35) Mean Corpuscular Hemoglobin Concent 35g/dL (31-37) 36g/dL (31-37) Red Cell Distribution Width 13.8% (11.5-14.5) 13.7% (11.5-14.5) Platelet Count 313x10^3/uL (140-400) 267x10^3/uL (140-400) Neutrophils (%) (Auto) 78% (31-73) 65% (31-73) Lymphocytes (%) (Auto) 7% (24-48) 17% (24-48) Monocytes (%) (Auto) 13% (0-9) 17% (0-9) Eosinophils (%) (Auto) 1% (0-3) 1% (0-3) Basophils (%) (Auto) 1% (0-3) 1% (0-3) Neutrophils # (Auto) 7.5x10^3uL (1.8-7.7) 4.2x10^3uL (1.8-7.7) Lymphocytes # (Auto) 0.7x10^3/uL (1.0-4.8) 1.0x10^3/uL (1.0-4.8) Monocytes # (Auto) 1.2x10^3/uL (0.0-1.1) 1.1x10^3/uL (0.0-1.1) Eosinophils # (Auto) 0.1x10^3/uL (0.0-0.7) 0.0x10^3/uL (0.0-0.7) Basophils # (Auto) 0.0x10^3/uL (0.0-0.2) 0.0x10^3/uL (0.0-0.2) Sodium Level 139mmol/L (136-145) 143mmol/L (136-145) Potassium Level 3.6mmol/L (3.5-5.1) 3.3mmol/L (3.5-5.1) Chloride Level 102mmol/L (98-107) 106mmol/L (98-107) Carbon Dioxide Level 26mmol/L (21-32) 24mmol/L (21-32) Anion Gap 11 (6-14) 13 (6-14) Blood Urea Nitrogen 16mg/dL (7-20) 12mg/dL (7-20) Creatinine 0.8mg/dL (0.6-1.0) 0.8mg/dL (0.6-1.0) Estimated GFR (Cockcroft-Gault) 91.9 91.9 Glucose Level 113mg/dL (70-99) 122mg/dL (70-99) Calcium Level 9.4mg/dL (8.5-10.1) 8.7mg/dL (8.5-10.1) BUN/Creatinine Ratio 15 (6-20) Total Bilirubin 0.6mg/dL (0.2-1.0) Aspartate Amino Transf (AST/SGOT) 19U/L (15-37) Alanine Aminotransferase (ALT/SGPT) 17U/L (14-59) Alkaline Phosphatase 69U/L (46-116) Total Protein 6.8g/dL (6.4-8.2) Albumin 3.1g/dL (3.4-5.0) Albumin/Globulin Ratio 0.8 (1.0-1.7) Medications Current Medications Sodium Chloride (Iv Sodium Chloride 0.9% 1000ml Bag) 1,000 ml @ 1,000 mls/hr 1X ONCE IV Last administered on 06/28/16 13:02; Start 06/28/16 at 12:15; Stop 06/28/16 at 13:14; Status DC Ketorolac Tromethamine (Toradol) 30 mg 1X ONCE IV Last administered on 13:03; Start 06/28/16 at 12:15; Stop 06/28/16 at 12:16; Status DC Oseltamivir Phosphate (Tamiflu) 75 mg 1X STAT PO Last administered on 13:05; Start 06/28/16 at 12:45; Stop 06/28/16 at 12:48; Status DC Ondansetron HCl 4 mg 4 mg PRN Q8HRS PRN IV NAUSEA/VOMITING; Start 06/28/16 at 13:00; Stop 06/29/16 at 12:59 Sodium Chloride (Iv Sodium Chloride 0.9% 1000ml Bag) 1,000 ml @ 125 mls/hr Q8H IV ; Start 06/28/16 at 13:30; Stop 06/28/16 at 17:43; Status DC Oseltamivir Phosphate 75 mg 75 mg BID PO Last administered on 06/29/16 08:50; Start 06/28/16 at 21:00; Stop 07/03/16 at 20:59 Potassium Chloride/Dextrose/ Sod Cl (KCl 20 Meq In D5W-1/2 NS) 1,000 ml @ 75 mls/hr [id number] IV Last administered on 06/29/16 10:16; Start 06/28/16 at 19:00 Enoxaparin Sodium (Lovenox 40mg Syringe) 40 mg Q24H SQ Last administered on 21:11; Start 06/28/16 at 21:00 Acetaminophen (Tylenol) 650 mg PRN Q4HRS PRN PO MILD PAIN / TEMP Last administered on 06/29/16 08:47; Start 06/28/16 at 17:45 Aspirin (Emiliano Aspirin) 325 mg DAILYWBKFT PO Last administered on 06/29/16 08: 49; Start 06/29/16 at 08:00 Baclofen (Lioresal) 10 mg BID PO ; Start 06/28/16 at 21:00; Stop 06/28/16 at 21: 00; Status DC Baclofen (Lioresal) 20 mg DAILY16 PO ; Start 06/29/16 at 16:00; Stop 06/29/16 at 16:00; Status DC Hydrochlorothiazide (Hydrodiuril) 25 mg DAILY PO Last administered on 08:48; Start 06/29/16 at 09:00 Levothyroxine Sodium (Synthroid) 100 mcg DAILY07 PO Last administered on 10:15; Start 06/29/16 at 07:00 Losartan Potassium (Cozaar) 50 mg DAILY PO Last administered on 06/29/16 08:50 ; Start 06/29/16 at 09:00 Multivitamins/ Calcium (Thera M Plus) 1 tab DAILY PO Last administered on 08:47; Start 06/29/16 at 09:00 Oxybutynin Chloride (Ditropan) 5 mg [id number] PO Last administered on 06/29/16 08 :47; Start 06/28/16 at 21:00 Potassium Chloride (Klor-Con) 20 meq DAILYWBKFT PO Last administered on 08:46; Start 06/29/16 at 08:00 Tizanidine HCl (Zanaflex) 4 mg QHS PO ; Start 06/28/16 at 21:00; Stop 06/28/16 at 21:00; Status DC Tizanidine HCl (Zanaflex) 2 mg BID PO Last administered on 06/29/16 08:49; Start 06/28/16 at 21:00 Ondansetron HCl (Zofran) 4 mg PRN Q6HRS PRN IV NAUSEA/VOMITING; Start 06/28/16 at 17:45 Baclofen (Lioresal) 10 mg DAILY08 PO Last administered on 06/29/16 08:47; Start 06/29/16 at 08:00 Baclofen (Lioresal) 20 mg BID@14,21 PO ; Start 06/29/16 at 21:00 Tizanidine HCl (Zanaflex) 4 mg QHS PO Last administered on 06/28/16 21:11; Start 06/28/16 at 21:00 Clonidine HCl (Catapres) 0.1 mg PRN Q6HRS PRN PO HYPERTENSION, SEE COMMENTS; Start 06/28/16 at 18:00 Active Scripts Active Reported Tizanidine Hcl 4 Mg Tablet 4 Mg PO DAILYBFRSUP Tizanidine Hcl 4 Mg Tablet 2 Mg PO DAILY07 Tizanidine Hcl 4 Mg Tablet 1 Tab PO QHS Multivitamins (Multivitamin) 1 Each Tablet 1 Each PO DAILY Hydrochlorothiazide Tablet (Hydrochlorothiazide) 12.5 Mg Tablet 1 Tab PO DAILY Baclofen 20 Mg Tablet 20 Mg PO BIDACLD Baclofen 10 Mg Tablet 10 Mg PO DAILY07 Losartan Potassium 50 Mg Tablet 50 Mg PO DAILY Aspirin 325 Mg Tablet 1 Tab PO DAILY [multivitamin] [tizanidine] [losartan] [baclofen] [hydrochlorothiazide] Vitals/I & O Vital Sign - Last 24 Hours 06/28/16 06/28/16 06/28/16 06/28/16 13:00 13:30 14:00 14:30 Pulse 104 100 104 100 Resp B/P 169/95 155/89 139/83 141/73 Pulse Ox 98 93 93 96 O2 Delivery Room Air Room Air Room Air Room Air 06/28/16 06/28/16 06/28/16 06/28/16 15:00 15:30 16:00 17:30 Pulse 92 108 100 92 Resp B/P 139/78 143/84 159/59 177/96 Pulse Ox 94 94 94 92 O2 Delivery Room Air Room Air Room Air Room Air 06/28/16 06/28/16 06/28/16 06/28/16 18:00 18:24 19:00 20:00 Temp 101.0 102.7 101.0 102.7 Pulse 99 121 Resp 18 18 B/P 171/93 165/107 161/107 Pulse Ox 95 97 O2 Delivery Room Air Room Air Room Air 06/28/16 06/28/16 06/29/16 06/29/16 21:46 22:45 02:48 07:00 Temp 102.9 99.9 99.2 102.9 99.9 99.2 Pulse 112 83 82 Resp 18 18 18 B/P 138/86 114/88 170/104 Pulse Ox 95 99 99 O2 Delivery Room Air Room Air Room Air Room Air 06/29/16 06/29/16 06/29/16 08:00 08:50 10:54 Temp 99.7 99.7 Pulse 82 74 Resp 18 B/P 170/104 129/93 Pulse Ox 95 O2 Delivery Room Air Room Air Intake and Output 06/28/16 06/28/16 06/29/16 15:00 23:00 07:00 Intake Total 1000 ml 900 ml Balance 1000 ml 900 ml NOAH BAUGH MD Jun 29, 2016 12:44
--- NOTE | 2016-06-29 13:43 | EKG ---
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
[2016-06-29] MEDS ORDERED: POTASSIUM CHLORIDE 20 MEQ/15 ML ORAL LIQUID. PEG ONE ×2 (14:30)
[2016-06-29 14:50] VITALS: BP 117/83
[2016-06-29] MEDS ORDERED: BACLOFEN 10 MG TABLET PO SCH (16:00)
[2016-06-29 16:36] LABS: BILIRUBIN,URINE NEGATIVE (NEG); GLUCOSE,URINE NEGATIVE (NEG); NITRITE,URINE POSITIVE (NEG); PROTEIN,URINE NEGATIVE (NEG-TRACE)
[2016-06-29 17:07] LABS: BACTERIA,URINE MOD /HPF (0-FEW); WBC,URINE TNTC /HPF (0-4)
[2016-06-29 17:08] LABS: SQUAMOUS EPITHELIAL CELL,UR OCC /LPF
[2016-06-29 19:00] VITALS: BP 125/96
[2016-06-29] MEDS: ENOXAPARIN 40 MG/0.4 ML DISP.SYRIN. SQ SCH (20:10)
[2016-06-29 23:00] VITALS: BP 109/83
[2016-06-30] MEDS: POTASSIUM CL 20MEQ D5-0.45NACL 1,000 ML IV SCH ×2 (01:19→11:00)
[2016-06-30 03:00] VITALS: BP 140/98
--- NOTE | 2016-06-30 03:30 | CONS ---
DATE OF CONSULTATION: LOCATION: She is in room 584. ATTENDING PHYSICIAN: Dr. Melendez. The patient was seen at the request of Dr. Melendez for rehab evaluation. HISTORY OF PRESENT ILLNESS: This is a 51-year-old female with multiple sclerosis, hypertension, hypothyroidism and spastic paraparesis with neurogenic bladder, admitted on 06/28/2016 with a 1-day history of fever, cough and decreased appetite and generalized weakness and she was unable to use her electric scooter and get around admitted through the Emergency Room, was positive for influenza A. The patient denies any significant pain. She is not known allergic to any medication. The patient lives at home with her sister. No stairs for her to manage. She usually gets up using a walker and make few steps. PHYSICAL EXAMINATION: Today revealed a middle-aged female. She is alert, oriented to time, place, person and circumstance and follows commands appropriately. She moves both upper extremities voluntarily where she had 4+/5 grade muscle strength; in her lower extremities, she had trace movements. She had significant stiffness of both hips and knees. The patient had equal perception of touch and pinprick sensation bilaterally. The patient had intact skin at this time. She requires help with bed mobility. I have not tested her transfers or ambulation skills at this time. ASSESSMENT: A middle-aged female with multiple sclerosis with spastic paraparesis with neurogenic bowel and bladder, hypertension, hypothyroidism and influenza A. RECOMMENDATIONS: Agree with the plan for physical therapy and occupational therapy to get her up as tolerated to try to adjust the dose of her baclofen. Dr. Melendez, appreciate asking me to participate in care of this interesting patient. I will be glad to follow her with you as needed by her rehabilitation. KIMBERLY KAY MD DR: HOLLY/clay JOB#: [id number] / [id number]
[2016-06-30 07:00] VITALS: BP 142/98
--- NOTE | 2016-06-30 08:34 | PDOC ---
PROGRESS NOTES Assessment Problems Medical Problems: (1) Exacerbation of multiple sclerosis Status: Acute (2) Influenza A Status: Acute Influenza A, already feeling better Multiple sclerosis pseudo-exacerbation, also better Plan Okay for discharge, f/u with Dr. Cazares Continue supportive care Holding on immunosuppression treatment Subjective Feeling much better, wants to go home Objective Vital Signs Date Time Temp Pulse Resp B/P Pulse Ox O2 Delivery O2 Flow Rate FiO2 06/30/16 03:00 98.6 57 18 140/98 98 Room Air 98.6 Intake and Output 06/30/16 07:00 Intake Total 1830 ml Output Total 300 ml Balance 1530 ml Intake Oral 830 ml IV Total 1000 ml Output Urine Total 300 ml # Voids 5 PHYSICAL EXAM Alert. Oriented to time, place and person. PERRL. EOMI. CN: no focal findings. Muscle tone: normal. Muscle strength: 3/5 legs, 4+/5 arms DTR: 2+ Plantar reflex: silent Gait: not examined in bed. Sensory exam: no abnormal findings. No cerebellar signs elicited. Review of Relevant I have reviewed the following items bridgette (where applicable) has been applied. Labs Laboratory Tests Test 06/28/16 12:00 06/28/16 12:45 06/29/16 04:40 06/29/16 16:05 Influenza Type A Antigen Positive (NEGATIVE) Influenza Type B Antigen Negative (NEGATIVE) White Blood Count 9.6x10^3/uL (4.0-11.0) 6.4x10^3/uL (4.0-11.0) Red Blood Count 4.47x10^6/uL (3.50-5.40) 4.04x10^6/uL (3.50-5.40) Hemoglobin 13.1g/dL (12.0-15.5) 12.1g/dL (12.0-15.5) Hematocrit 37.8% (36.0-47.0) 33.4% (36.0-47.0) Mean Corpuscular Volume 85fL (79-100) 83fL (79-100) Mean Corpuscular Hemoglobin 29pg (25-35) 30pg (25-35) Mean Corpuscular Hemoglobin Concent 35g/dL (31-37) 36g/dL (31-37) Red Cell Distribution Width 13.8% (11.5-14.5) 13.7% (11.5-14.5) Platelet Count 313x10^3/uL (140-400) 267x10^3/uL (140-400) Neutrophils (%) (Auto) 78% (31-73) 65% (31-73) Lymphocytes (%) (Auto) 7% (24-48) 17% (24-48) Monocytes (%) (Auto) 13% (0-9) 17% (0-9) Eosinophils (%) (Auto) 1% (0-3) 1% (0-3) Basophils (%) (Auto) 1% (0-3) 1% (0-3) Neutrophils # (Auto) 7.5x10^3uL (1.8-7.7) 4.2x10^3uL (1.8-7.7) Lymphocytes # (Auto) 0.7x10^3/uL (1.0-4.8) 1.0x10^3/uL (1.0-4.8) Monocytes # (Auto) 1.2x10^3/uL (0.0-1.1) 1.1x10^3/uL (0.0-1.1) Eosinophils # (Auto) 0.1x10^3/uL (0.0-0.7) 0.0x10^3/uL (0.0-0.7) Basophils # (Auto) 0.0x10^3/uL (0.0-0.2) 0.0x10^3/uL (0.0-0.2) Sodium Level 139mmol/L (136-145) 143mmol/L (136-145) Potassium Level 3.6mmol/L (3.5-5.1) 3.3mmol/L (3.5-5.1) Chloride Level 102mmol/L (98-107) 106mmol/L (98-107) Carbon Dioxide Level 26mmol/L (21-32) 24mmol/L (21-32) Anion Gap 11 (6-14) 13 (6-14) Blood Urea Nitrogen 16mg/dL (7-20) 12mg/dL (7-20) Creatinine 0.8mg/dL (0.6-1.0) 0.8mg/dL (0.6-1.0) Estimated GFR (Cockcroft-Gault) 91.9 91.9 Glucose Level 113mg/dL (70-99) 122mg/dL (70-99) Calcium Level 9.4mg/dL (8.5-10.1) 8.7mg/dL (8.5-10.1) BUN/Creatinine Ratio 15 (6-20) Total Bilirubin 0.6mg/dL (0.2-1.0) Aspartate Amino Transf (AST/SGOT) 19U/L (15-37) Alanine Aminotransferase (ALT/SGPT) 17U/L (14-59) Alkaline Phosphatase 69U/L (46-116) Total Protein 6.8g/dL (6.4-8.2) Albumin 3.1g/dL (3.4-5.0) Albumin/Globulin Ratio 0.8 (1.0-1.7) Urine Color Yellow Urine Clarity Turbid Urine pH 7.0 Urine Specific [place] 1.010 Urine Protein Negativemg/dL (NEG-TRACE) Urine Glucose (UA) Negativemg/dL (NEG) Urine Ketones (Stick) Negativemg/dL (NEG) Urine Blood Moderate (NEG) Urine Nitrite Positive (NEG) Urine Bilirubin Negative (NEG) Urine Urobilinogen Dipstick 1.0mg/dL (0.2 mg/dL) Urine Leukocyte Esterase Large (NEG) Urine RBC 3-5/HPF (0-2) Urine WBC Tntc/HPF (0-4) Urine Squamous Epithelial Cells Occ/LPF Urine Bacteria Mod/HPF (0-FEW) Laboratory Tests Test 06/29/16 16:05 Urine Color Yellow Urine Clarity Turbid Urine pH 7.0 Urine Specific [place] 1.010 Urine Protein Negativemg/dL (NEG-TRACE) Urine Glucose (UA) Negativemg/dL (NEG) Urine Ketones (Stick) Negativemg/dL (NEG) Urine Blood Moderate (NEG) Urine Nitrite Positive (NEG) Urine Bilirubin Negative (NEG) Urine Urobilinogen Dipstick 1.0mg/dL (0.2 mg/dL) Urine Leukocyte Esterase Large (NEG) Urine RBC 3-5/HPF (0-2) Urine WBC Tntc/HPF (0-4) Urine Squamous Epithelial Cells Occ/LPF Urine Bacteria Mod/HPF (0-FEW) Medications Current Medications Sodium Chloride (Iv Sodium Chloride 0.9% 1000ml Bag) 1,000 ml @ 1,000 mls/hr 1X ONCE IV Last administered on 06/28/16 13:02; Start 06/28/16 at 12:15; Stop 06/28/16 at 13:14; Status DC Ketorolac Tromethamine (Toradol) 30 mg 1X ONCE IV Last administered on 13:03; Start 06/28/16 at 12:15; Stop 06/28/16 at 12:16; Status DC Oseltamivir Phosphate (Tamiflu) 75 mg 1X STAT PO Last administered on 13:05; Start 06/28/16 at 12:45; Stop 06/28/16 at 12:48; Status DC Ondansetron HCl 4 mg 4 mg PRN Q8HRS PRN IV NAUSEA/VOMITING; Start 06/28/16 at 13:00; Stop 06/29/16 at 13:10; Status DC Sodium Chloride (Iv Sodium Chloride 0.9% 1000ml Bag) 1,000 ml @ 125 mls/hr Q8H IV ; Start 06/28/16 at 13:30; Stop 06/28/16 at 17:43; Status DC Oseltamivir Phosphate 75 mg 75 mg BID PO Last administered on 06/29/16 20:10; Start 06/28/16 at 21:00; Stop 07/03/16 at 20:59 Potassium Chloride/Dextrose/ Sod Cl (KCl 20 Meq In D5W-1/2 NS) 1,000 ml @ 75 mls/hr [id number] IV Last administered on 06/30/16 01:19; Start 06/28/16 at 19:00 Enoxaparin Sodium (Lovenox 40mg Syringe) 40 mg Q24H SQ Last administered on 20:10; Start 06/28/16 at 21:00 Acetaminophen (Tylenol) 650 mg PRN Q4HRS PRN PO MILD PAIN / TEMP Last administered on 06/29/16 08:47; Start 06/28/16 at 17:45 Aspirin (Emiliano Aspirin) 325 mg DAILYWBKFT PO Last administered on 06/29/16 08: 49; Start 06/29/16 at 08:00 Baclofen (Lioresal) 10 mg BID PO ; Start 06/28/16 at 21:00; Stop 06/28/16 at 21: 00; Status DC Baclofen (Lioresal) 20 mg DAILY16 PO ; Start 06/29/16 at 16:00; Stop 06/29/16 at 16:00; Status DC Hydrochlorothiazide (Hydrodiuril) 25 mg DAILY PO Last administered on 08:48; Start 06/29/16 at 09:00 Levothyroxine Sodium (Synthroid) 100 mcg DAILY07 PO Last administered on 10:15; Start 06/29/16 at 07:00 Losartan Potassium (Cozaar) 50 mg DAILY PO Last administered on 06/29/16 08:50 ; Start 06/29/16 at 09:00 Multivitamins/ Calcium (Thera M Plus) 1 tab DAILY PO Last administered on 08:47; Start 06/29/16 at 09:00 Oxybutynin Chloride (Ditropan) 5 mg [id number] PO Last administered on 06/29/16 20 :09; Start 06/28/16 at 21:00 Potassium Chloride (Klor-Con) 20 meq DAILYWBKFT PO Last administered on 08:46; Start 06/29/16 at 08:00 Tizanidine HCl (Zanaflex) 4 mg QHS PO ; Start 06/28/16 at 21:00; Stop 06/28/16 at 21:00; Status DC Tizanidine HCl (Zanaflex) 2 mg BID PO Last administered on 06/29/16 08:49; Start 06/28/16 at 21:00 Ondansetron HCl (Zofran) 4 mg PRN Q6HRS PRN IV NAUSEA/VOMITING; Start 06/28/16 at 17:45 Baclofen (Lioresal) 10 mg DAILY08 PO Last administered on 06/29/16 08:47; Start 06/29/16 at 08:00 Baclofen (Lioresal) 20 mg BID@14,21 PO Last administered on 06/29/16 20:10; Start 06/29/16 at 21:00 Tizanidine HCl (Zanaflex) 4 mg QHS PO Last administered on 2/16/17at 20:09; Start 06/28/16 at 21:00 Clonidine HCl (Catapres) 0.1 mg PRN Q6HRS PRN PO HYPERTENSION, SEE COMMENTS; Start 06/28/16 at 18:00 Potassium Chloride (KCl Oral Soln) 40 meq 1X ONCE PO ; Start 06/29/16 at 09:00 ; Stop 06/29/16 at 14:19; Status DC Potassium Chloride (KCl Oral Soln) 40 meq 1X ONCE PO ; Start 06/29/16 at 14:15 ; Stop 06/29/16 at 14:22; Status DC Potassium Chloride (KCl Oral Soln) 40 meq ONCE ONCE PEG Last administered on 14:52; Start 06/29/16 at 14:30; Stop 06/29/16 at 14:32; Status DC Potassium Chloride (KCl Oral Soln) 40 meq 1X ONCE PEG ; Start 06/29/16 at 14:30 ; Stop 06/29/16 at 14:31; Status UNV Active Scripts Active Reported Tizanidine Hcl 4 Mg Tablet 4 Mg PO DAILYBFRSUP Tizanidine Hcl 4 Mg Tablet 2 Mg PO DAILY07 Tizanidine Hcl 4 Mg Tablet 1 Tab PO QHS Multivitamins (Multivitamin) 1 Each Tablet 1 Each PO DAILY Hydrochlorothiazide Tablet (Hydrochlorothiazide) 12.5 Mg Tablet 1 Tab PO DAILY Baclofen 20 Mg Tablet 20 Mg PO BIDACLD Baclofen 10 Mg Tablet 10 Mg PO DAILY07 Losartan Potassium 50 Mg Tablet 50 Mg PO DAILY Aspirin 325 Mg Tablet 1 Tab PO DAILY [multivitamin] [tizanidine] [losartan] [baclofen] [hydrochlorothiazide] Vitals/I & O Vital Sign - Last 24 Hours 06/29/16 06/29/16 06/29/16 06/29/16 08:50 10:54 14:50 19:00 Temp 99.7 98.2 98.8 99.7 98.2 98.8 Pulse 82 74 74 87 Resp 18 18 18 B/P 170/104 129/93 117/83 125/96 Pulse Ox 95 96 100 O2 Delivery Room Air Room Air Room Air 06/29/16 06/29/16 06/30/16 20:00 23:00 03:00 Temp 98.1 98.6 98.1 98.6 Pulse 78 57 Resp 18 18 B/P 109/83 140/98 Pulse Ox 96 98 O2 Delivery Room Air Room Air Room Air Intake and Output 06/29/16 06/29/16 06/30/16 15:00 23:00 07:00 Intake Total 1480 ml 350 ml Output Total 300 ml Balance 1480 ml -300 ml 350 ml JANUARY FOOTE MD Jun 30, 2016 08:34
[2016-06-30] MEDS: HYDROCHLOROTHIAZIDE 25 MG TABLET PO SCH (09:28)
[2016-06-30] MEDS: OXYBUTYNIN CHLORIDE 5 MG TABLET PO SCH ×3 (09:28→21:23)
[2016-06-30] MEDS: OSELTAMIVIR 75 MG CAPSULE PO SCH ×2 (09:28→21:22)
[2016-06-30] MEDS: LEVOTHYROXINE 100 MCG TABLET PO SCH (09:28)
[2016-06-30] MEDS: POTASSIUM CHLORIDE 20 MEQ TABLET.ER. PO SCH (09:28)
[2016-06-30] MEDS: ASPIRIN 325 MG TABLET PO SCH (09:28)
[2016-06-30] MEDS: tiZANidine 4 MG TABLET. PO SCH ×3 (09:29→21:21)
[2016-06-30] MEDS: BACLOFEN 10 MG TABLET PO SCH ×3 (09:29→21:22)
[2016-06-30] MEDS: MULTIVITAMIN with MINERAL TABLET. PO SCH (09:29)
[2016-06-30] MEDS: LOSARTAN POTASSIUM 50 MG TABLET. PO SCH (09:43)
[2016-06-30 09:56] LABS: BASO % 1 % (0-3); EOS % 8 % (0-3); HEMATOCRIT 37.2 % (36.0-47.0); LYMPH # 1.7 x10^3/uL (1.0-4.8); LYMPH % 31 % (24-48); MEAN CORPUSCULAR HEMOGLOBIN 29 pg (25-35); MEAN CORPUSCULAR HGB CONC 35 g/dL (31-37); MEAN CORPUSCULAR VOLUME 83 fL (79-100); MONO % 10 % (0-9); NEUT % 51 % (31-73); PLATELET COUNT 257 x10^3/uL (140-400); RED BLOOD COUNT 4.49 x10^6/uL (3.50-5.40); RED CELL DISTRIBUTION WIDTH 13.6 % (11.5-14.5); WHITE BLOOD COUNT 5.6 x10^3/uL (4.0-11.0)
[2016-06-30 10:05] LABS: CALCIUM 8.2 mg/dL (8.5-10.1); MAGNESIUM 1.8 mg/dL (1.8-2.4); POTASSIUM 3.5 mmol/L (3.5-5.1)
--- NOTE | 2016-06-30 10:40 | PDOC ---
PROGRESS NOTES Subjective Subjective She continues with lower extremity weakness and tightness. Objective Objective Vital Signs Date Time Temp Pulse Resp B/P Pulse Ox O2 Delivery O2 Flow Rate FiO2 06/30/16 09:43 66 142/98 06/30/16 08:00 Room Air 06/30/16 07:00 98.1 20 98 98.1 Intake and Output 06/30/16 07:00 Intake Total 1830 ml Output Total 300 ml Balance 1530 ml Intake Oral 830 ml IV Total 1000 ml Output Urine Total 300 ml # Voids 5 Physical Exam Physical Exam She is lethargic but can easily be awakened and she continues with significant spastic paraparesis and weakness of antigravity muscles bilaterally.She got up with physical therapy. Assessment Assessment Problems Medical Problems: (1) Exacerbation of multiple sclerosis Status: Acute (2) Influenza A Status: Acute Plan Plan of Care To ask for a screen for transfer to [facility] for continued care and to obtain her bilateral AFOs to help with her foot drop and she seems to be a good candidate for baclofen pump and Antelmo, Hanny and Hossein does not insert them. or [facility] perform them. Comment Review of Relevant I have reviewed the following items bridgette (where applicable) has been applied. Labs Laboratory Tests Test 06/28/16 12:00 06/28/16 12:45 06/29/16 04:40 06/29/16 16:05 Influenza Type A Antigen Positive (NEGATIVE) Influenza Type B Antigen Negative (NEGATIVE) White Blood Count 9.6x10^3/uL (4.0-11.0) 6.4x10^3/uL (4.0-11.0) Red Blood Count 4.47x10^6/uL (3.50-5.40) 4.04x10^6/uL (3.50-5.40) Hemoglobin 13.1g/dL (12.0-15.5) 12.1g/dL (12.0-15.5) Hematocrit 37.8% (36.0-47.0) 33.4% (36.0-47.0) Mean Corpuscular Volume 85fL (79-100) 83fL (79-100) Mean Corpuscular Hemoglobin 29pg (25-35) 30pg (25-35) Mean Corpuscular Hemoglobin Concent 35g/dL (31-37) 36g/dL (31-37) Red Cell Distribution Width 13.8% (11.5-14.5) 13.7% (11.5-14.5) Platelet Count 313x10^3/uL (140-400) 267x10^3/uL (140-400) Neutrophils (%) (Auto) 78% (31-73) 65% (31-73) Lymphocytes (%) (Auto) 7% (24-48) 17% (24-48) Monocytes (%) (Auto) 13% (0-9) 17% (0-9) Eosinophils (%) (Auto) 1% (0-3) 1% (0-3) Basophils (%) (Auto) 1% (0-3) 1% (0-3) Neutrophils # (Auto) 7.5x10^3uL (1.8-7.7) 4.2x10^3uL (1.8-7.7) Lymphocytes # (Auto) 0.7x10^3/uL (1.0-4.8) 1.0x10^3/uL (1.0-4.8) Monocytes # (Auto) 1.2x10^3/uL (0.0-1.1) 1.1x10^3/uL (0.0-1.1) Eosinophils # (Auto) 0.1x10^3/uL (0.0-0.7) 0.0x10^3/uL (0.0-0.7) Basophils # (Auto) 0.0x10^3/uL (0.0-0.2) 0.0x10^3/uL (0.0-0.2) Sodium Level 139mmol/L (136-145) 143mmol/L (136-145) Potassium Level 3.6mmol/L (3.5-5.1) 3.3mmol/L (3.5-5.1) Chloride Level 102mmol/L (98-107) 106mmol/L (98-107) Carbon Dioxide Level 26mmol/L (21-32) 24mmol/L (21-32) Anion Gap 11 (6-14) 13 (6-14) Blood Urea Nitrogen 16mg/dL (7-20) 12mg/dL (7-20) Creatinine 0.8mg/dL (0.6-1.0) 0.8mg/dL (0.6-1.0) Estimated GFR (Cockcroft-Gault) 91.9 91.9 Glucose Level 113mg/dL (70-99) 122mg/dL (70-99) Calcium Level 9.4mg/dL (8.5-10.1) 8.7mg/dL (8.5-10.1) BUN/Creatinine Ratio 15 (6-20) Total Bilirubin 0.6mg/dL (0.2-1.0) Aspartate Amino Transf (AST/SGOT) 19U/L (15-37) Alanine Aminotransferase (ALT/SGPT) 17U/L (14-59) Alkaline Phosphatase 69U/L (46-116) Total Protein 6.8g/dL (6.4-8.2) Albumin 3.1g/dL (3.4-5.0) Albumin/Globulin Ratio 0.8 (1.0-1.7) Urine Color Yellow Urine Clarity Turbid Urine pH 7.0 Urine Specific [place] 1.010 Urine Protein Negativemg/dL (NEG-TRACE) Urine Glucose (UA) Negativemg/dL (NEG) Urine Ketones (Stick) Negativemg/dL (NEG) Urine Blood Moderate (NEG) Urine Nitrite Positive (NEG) Urine Bilirubin Negative (NEG) Urine Urobilinogen Dipstick 1.0mg/dL (0.2 mg/dL) Urine Leukocyte Esterase Large (NEG) Urine RBC 3-5/HPF (0-2) Urine WBC Tntc/HPF (0-4) Urine Squamous Epithelial Cells Occ/LPF Urine Bacteria Mod/HPF (0-FEW) Test 06/30/16 09:00 White Blood Count 5.6x10^3/uL (4.0-11.0) Red Blood Count 4.49x10^6/uL (3.50-5.40) Hemoglobin 13.0g/dL (12.0-15.5) Hematocrit 37.2% (36.0-47.0) Mean Corpuscular Volume 83fL (79-100) Mean Corpuscular Hemoglobin 29pg (25-35) Mean Corpuscular Hemoglobin Concent 35g/dL (31-37) Red Cell Distribution Width 13.6% (11.5-14.5) Platelet Count 257x10^3/uL (140-400) Neutrophils (%) (Auto) 51% (31-73) Lymphocytes (%) (Auto) 31% (24-48) Monocytes (%) (Auto) 10% (0-9) Eosinophils (%) (Auto) 8% (0-3) Basophils (%) (Auto) 1% (0-3) Neutrophils # (Auto) 2.8x10^3uL (1.8-7.7) Lymphocytes # (Auto) 1.7x10^3/uL (1.0-4.8) Monocytes # (Auto) 0.5x10^3/uL (0.0-1.1) Eosinophils # (Auto) 0.5x10^3/uL (0.0-0.7) Basophils # (Auto) 0.0x10^3/uL (0.0-0.2) Sodium Level 140mmol/L (136-145) Potassium Level 3.5mmol/L (3.5-5.1) Chloride Level 104mmol/L (98-107) Carbon Dioxide Level 25mmol/L (21-32) Anion Gap 11 (6-14) Blood Urea Nitrogen 13mg/dL (7-20) Creatinine 1.0mg/dL (0.6-1.0) Estimated GFR (Cockcroft-Gault) 71.0 Glucose Level 175mg/dL (70-99) Calcium Level 8.2mg/dL (8.5-10.1) Magnesium Level 1.8mg/dL (1.8-2.4) Laboratory Tests Test 06/29/16 16:05 06/30/16 09:00 Urine Color Yellow Urine Clarity Turbid Urine pH 7.0 Urine Specific [place] 1.010 Urine Protein Negativemg/dL (NEG-TRACE) Urine Glucose (UA) Negativemg/dL (NEG) Urine Ketones (Stick) Negativemg/dL (NEG) Urine Blood Moderate (NEG) Urine Nitrite Positive (NEG) Urine Bilirubin Negative (NEG) Urine Urobilinogen Dipstick 1.0mg/dL (0.2 mg/dL) Urine Leukocyte Esterase Large (NEG) Urine RBC 3-5/HPF (0-2) Urine WBC Tntc/HPF (0-4) Urine Squamous Epithelial Cells Occ/LPF Urine Bacteria Mod/HPF (0-FEW) White Blood Count 5.6x10^3/uL (4.0-11.0) Red Blood Count 4.49x10^6/uL (3.50-5.40) Hemoglobin 13.0g/dL (12.0-15.5) Hematocrit 37.2% (36.0-47.0) Mean Corpuscular Volume 83fL (79-100) Mean Corpuscular Hemoglobin 29pg (25-35) Mean Corpuscular Hemoglobin Concent 35g/dL (31-37) Red Cell Distribution Width 13.6% (11.5-14.5) Platelet Count 257x10^3/uL (140-400) Neutrophils (%) (Auto) 51% (31-73) Lymphocytes (%) (Auto) 31% (24-48) Monocytes (%) (Auto) 10% (0-9) Eosinophils (%) (Auto) 8% (0-3) Basophils (%) (Auto) 1% (0-3) Neutrophils # (Auto) 2.8x10^3uL (1.8-7.7) Lymphocytes # (Auto) 1.7x10^3/uL (1.0-4.8) Monocytes # (Auto) 0.5x10^3/uL (0.0-1.1) Eosinophils # (Auto) 0.5x10^3/uL (0.0-0.7) Basophils # (Auto) 0.0x10^3/uL (0.0-0.2) Sodium Level 140mmol/L (136-145) Potassium Level 3.5mmol/L (3.5-5.1) Chloride Level 104mmol/L (98-107) Carbon Dioxide Level 25mmol/L (21-32) Anion Gap 11 (6-14) Blood Urea Nitrogen 13mg/dL (7-20) Creatinine 1.0mg/dL (0.6-1.0) Estimated GFR (Cockcroft-Gault) 71.0 Glucose Level 175mg/dL (70-99) Calcium Level 8.2mg/dL (8.5-10.1) Magnesium Level 1.8mg/dL (1.8-2.4) Medications Current Medications Sodium Chloride (Iv Sodium Chloride 0.9% 1000ml Bag) 1,000 ml @ 1,000 mls/hr 1X ONCE IV Last administered on 06/28/16 13:02; Start 06/28/16 at 12:15; Stop 06/28/16 at 13:14; Status DC Ketorolac Tromethamine (Toradol) 30 mg 1X ONCE IV Last administered on 13:03; Start 06/28/16 at 12:15; Stop 06/28/16 at 12:16; Status DC Oseltamivir Phosphate (Tamiflu) 75 mg 1X STAT PO Last administered on 13:05; Start 06/28/16 at 12:45; Stop 06/28/16 at 12:48; Status DC Ondansetron HCl 4 mg 4 mg PRN Q8HRS PRN IV NAUSEA/VOMITING; Start 06/28/16 at 13:00; Stop 06/29/16 at 13:10; Status DC Sodium Chloride (Iv Sodium Chloride 0.9% 1000ml Bag) 1,000 ml @ 125 mls/hr Q8H IV ; Start 06/28/16 at 13:30; Stop 06/28/16 at 17:43; Status DC Oseltamivir Phosphate 75 mg 75 mg BID PO Last administered on 06/30/16 09:28; Start 06/28/16 at 21:00; Stop 07/03/16 at 20:59 Potassium Chloride/Dextrose/ Sod Cl (KCl 20 Meq In D5W-1/2 NS) 1,000 ml @ 75 mls/hr [id number] IV Last administered on 06/30/16 01:19; Start 06/28/16 at 19:00 Enoxaparin Sodium (Lovenox 40mg Syringe) 40 mg Q24H SQ Last administered on 20:10; Start 06/28/16 at 21:00 Acetaminophen (Tylenol) 650 mg PRN Q4HRS PRN PO MILD PAIN / TEMP Last administered on 06/29/16 08:47; Start 06/28/16 at 17:45 Aspirin (Emiliano Aspirin) 325 mg DAILYWBKFT PO Last administered on 06/30/16 09: 28; Start 06/29/16 at 08:00 Baclofen (Lioresal) 10 mg BID PO ; Start 06/28/16 at 21:00; Stop 06/28/16 at 21: 00; Status DC Baclofen (Lioresal) 20 mg DAILY16 PO ; Start 06/29/16 at 16:00; Stop 06/29/16 at 16:00; Status DC Hydrochlorothiazide (Hydrodiuril) 25 mg DAILY PO Last administered on 09:28; Start 06/29/16 at 09:00 Levothyroxine Sodium (Synthroid) 100 mcg DAILY07 PO Last administered on 09:28; Start 06/29/16 at 07:00 Losartan Potassium (Cozaar) 50 mg DAILY PO Last administered on 06/30/16 09:43 ; Start 06/29/16 at 09:00 Multivitamins/ Calcium (Thera M Plus) 1 tab DAILY PO Last administered on 09:29; Start 06/29/16 at 09:00 Oxybutynin Chloride (Ditropan) 5 mg [id number] PO Last administered on 06/30/16 09 :28; Start 06/28/16 at 21:00 Potassium Chloride (Klor-Con) 20 meq DAILYWBKFT PO Last administered on 09:28; Start 06/29/16 at 08:00 Tizanidine HCl (Zanaflex) 4 mg QHS PO ; Start 06/28/16 at 21:00; Stop 06/28/16 at 21:00; Status DC Tizanidine HCl (Zanaflex) 2 mg BID PO Last administered on 06/30/16 09:29; Start 06/28/16 at 21:00 Ondansetron HCl (Zofran) 4 mg PRN Q6HRS PRN IV NAUSEA/VOMITING; Start 06/28/16 at 17:45 Baclofen (Lioresal) 10 mg DAILY08 PO Last administered on 06/30/16 09:29; Start 06/29/16 at 08:00 Baclofen (Lioresal) 20 mg BID@14,21 PO Last administered on 06/29/16 20:10; Start 06/29/16 at 21:00 Tizanidine HCl (Zanaflex) 4 mg QHS PO Last administered on 2/16/17at 20:09; Start 06/28/16 at 21:00 Clonidine HCl (Catapres) 0.1 mg PRN Q6HRS PRN PO HYPERTENSION, SEE COMMENTS; Start 06/28/16 at 18:00 Potassium Chloride (KCl Oral Soln) 40 meq 1X ONCE PO ; Start 06/29/16 at 09:00 ; Stop 06/29/16 at 14:19; Status DC Potassium Chloride (KCl Oral Soln) 40 meq 1X ONCE PO ; Start 06/29/16 at 14:15 ; Stop 06/29/16 at 14:22; Status DC Potassium Chloride (KCl Oral Soln) 40 meq ONCE ONCE PEG Last administered on t 14:52; Start 06/29/16 at 14:30; Stop 06/29/16 at 14:32; Status DC Potassium Chloride (KCl Oral Soln) 40 meq 1X ONCE PEG ; Start 06/29/16 at 14:30 ; Stop 06/29/16 at 14:31; Status UNV Active Scripts Active Reported Tizanidine Hcl 4 Mg Tablet 4 Mg PO DAILYBFRSUP Tizanidine Hcl 4 Mg Tablet 2 Mg PO DAILY07 Tizanidine Hcl 4 Mg Tablet 1 Tab PO QHS Multivitamins (Multivitamin) 1 Each Tablet 1 Each PO DAILY Hydrochlorothiazide Tablet (Hydrochlorothiazide) 12.5 Mg Tablet 1 Tab PO DAILY Baclofen 20 Mg Tablet 20 Mg PO BIDACLD Baclofen 10 Mg Tablet 10 Mg PO DAILY07 Losartan Potassium 50 Mg Tablet 50 Mg PO DAILY Aspirin 325 Mg Tablet 1 Tab PO DAILY [multivitamin] [tizanidine] [losartan] [baclofen] [hydrochlorothiazide] Vitals/I & O Vital Sign - Last 24 Hours 06/29/16 06/29/16 06/29/16 06/29/16 10:54 14:50 19:00 20:00 Temp 99.7 98.2 98.8 99.7 98.2 98.8 Pulse 74 74 87 Resp 18 18 18 B/P 129/93 117/83 125/96 Pulse Ox 95 96 100 O2 Delivery Room Air Room Air Room Air Room Air 06/29/16 06/30/16 06/30/16 06/30/16 23:00 03:00 07:00 08:00 Temp 98.1 98.6 98.1 98.1 98.6 98.1 Pulse 78 57 66 Resp 18 18 20 B/P 109/83 140/98 142/98 Pulse Ox 96 98 98 O2 Delivery Room Air Room Air Room Air Room Air 06/30/16 09:43 Pulse 66 B/P 142/98 Intake and Output 06/29/16 06/29/16 06/30/16 15:00 23:00 07:00 Intake Total 1480 ml 350 ml Output Total 300 ml Balance 1480 ml -300 ml 350 ml KIMBERLY KAY MD Jun 30, 2016 10:40
[2016-06-30] MEDS ORDERED: BISACODYL 5 MG TABLET.DR. PO PRN (10:45)
[2016-06-30] MEDS ORDERED: SENNOSIDES/DOCUSATE 8.6/50MG TABLET. PO PRN (10:45)
[2016-06-30 11:00] VITALS: BP 106/61
--- NOTE | 2016-06-30 14:43 | PDOC ---
PROGRESS NOTES Subjective Subjective feels better but still week. discussed with dr. michaels who concurs with YASMIN. she has significant mobility and self care deficits. with influenza A and multiple sclerosis Objective Objective Vital Signs Date Time Temp Pulse Resp B/P Pulse Ox O2 Delivery O2 Flow Rate FiO2 06/30/16 11:00 98.4 62 20 106/61 94 Room Air 98.4 Intake and Output 06/30/16 07:00 Intake Total 1830 ml Output Total 300 ml Balance 1530 ml Intake Oral 830 ml IV Total 1000 ml Output Urine Total 300 ml # Voids 5 Physical Exam Abdomen: Soft Heart: Regular rate, Normal S1, Normal S2 Extremities: No edema General: Alert HEENT: Atraumatic Lungs: Clear to auscultation MUSCULOSKELETAL: Other (increased lower extremitiy spasticity. legs weak) Neck: Supple Psych/Mental Status: Mental status NL Skin: No rashes Assessment Assessment Problems Medical Problems:. Influenza type A. 2. Pseudo exacerbation of multiple sclerosis secondary to influenza type A. 3. Hypertension. The blood pressure is elevated. 4. Hypothyroidism. 5. Mobility and self-care deficits secondary to influenza A and pseudo exacerbation of multiple sclerosis. hypokalemia resolved pyuria (1) Exacerbation of multiple sclerosis Status: Acute (2) Influenza A Status: Acute Plan Plan of Care urine culture pending decrease iv fluids PT and OT lovenox for DVT prophylaxis urine culture pending [facility] screen Comment Review of Relevant I have reviewed the following items bridgette (where applicable) has been applied. Labs Laboratory Tests Test 06/29/16 04:40 06/29/16 16:05 06/30/16 09:00 White Blood Count 6.4x10^3/uL (4.0-11.0) 5.6x10^3/uL (4.0-11.0) Red Blood Count 4.04x10^6/uL (3.50-5.40) 4.49x10^6/uL (3.50-5.40) Hemoglobin 12.1g/dL (12.0-15.5) 13.0g/dL (12.0-15.5) Hematocrit 33.4% (36.0-47.0) 37.2% (36.0-47.0) Mean Corpuscular Volume 83fL (79-100) 83fL (79-100) Mean Corpuscular Hemoglobin 30pg (25-35) 29pg (25-35) Mean Corpuscular Hemoglobin Concent 36g/dL (31-37) 35g/dL (31-37) Red Cell Distribution Width 13.7% (11.5-14.5) 13.6% (11.5-14.5) Platelet Count 267x10^3/uL (140-400) 257x10^3/uL (140-400) Neutrophils (%) (Auto) 65% (31-73) 51% (31-73) Lymphocytes (%) (Auto) 17% (24-48) 31% (24-48) Monocytes (%) (Auto) 17% (0-9) 10% (0-9) Eosinophils (%) (Auto) 1% (0-3) 8% (0-3) Basophils (%) (Auto) 1% (0-3) 1% (0-3) Neutrophils # (Auto) 4.2x10^3uL (1.8-7.7) 2.8x10^3uL (1.8-7.7) Lymphocytes # (Auto) 1.0x10^3/uL (1.0-4.8) 1.7x10^3/uL (1.0-4.8) Monocytes # (Auto) 1.1x10^3/uL (0.0-1.1) 0.5x10^3/uL (0.0-1.1) Eosinophils # (Auto) 0.0x10^3/uL (0.0-0.7) 0.5x10^3/uL (0.0-0.7) Basophils # (Auto) 0.0x10^3/uL (0.0-0.2) 0.0x10^3/uL (0.0-0.2) Sodium Level 143mmol/L (136-145) 140mmol/L (136-145) Potassium Level 3.3mmol/L (3.5-5.1) 3.5mmol/L (3.5-5.1) Chloride Level 106mmol/L (98-107) 104mmol/L (98-107) Carbon Dioxide Level 24mmol/L (21-32) 25mmol/L (21-32) Anion Gap 13 (6-14) 11 (6-14) Blood Urea Nitrogen 12mg/dL (7-20) 13mg/dL (7-20) Creatinine 0.8mg/dL (0.6-1.0) 1.0mg/dL (0.6-1.0) Estimated GFR (Cockcroft-Gault) 91.9 71.0 BUN/Creatinine Ratio 15 (6-20) Glucose Level 122mg/dL (70-99) 175mg/dL (70-99) Calcium Level 8.7mg/dL (8.5-10.1) 8.2mg/dL (8.5-10.1) Total Bilirubin 0.6mg/dL (0.2-1.0) Aspartate Amino Transf (AST/SGOT) 19U/L (15-37) Alanine Aminotransferase (ALT/SGPT) 17U/L (14-59) Alkaline Phosphatase 69U/L (46-116) Total Protein 6.8g/dL (6.4-8.2) Albumin 3.1g/dL (3.4-5.0) Albumin/Globulin Ratio 0.8 (1.0-1.7) Urine Color Yellow Urine Clarity Turbid Urine pH 7.0 Urine Specific [place] 1.010 Urine Protein Negativemg/dL (NEG-TRACE) Urine Glucose (UA) Negativemg/dL (NEG) Urine Ketones (Stick) Negativemg/dL (NEG) Urine Blood Moderate (NEG) Urine Nitrite Positive (NEG) Urine Bilirubin Negative (NEG) Urine Urobilinogen Dipstick 1.0mg/dL (0.2 mg/dL) Urine Leukocyte Esterase Large (NEG) Urine RBC 3-5/HPF (0-2) Urine WBC Tntc/HPF (0-4) Urine Squamous Epithelial Cells Occ/LPF Urine Bacteria Mod/HPF (0-FEW) Magnesium Level 1.8mg/dL (1.8-2.4) Laboratory Tests Test 06/29/16 16:05 06/30/16 09:00 Urine Color Yellow Urine Clarity Turbid Urine pH 7.0 Urine Specific [place] 1.010 Urine Protein Negativemg/dL (NEG-TRACE) Urine Glucose (UA) Negativemg/dL (NEG) Urine Ketones (Stick) Negativemg/dL (NEG) Urine Blood Moderate (NEG) Urine Nitrite Positive (NEG) Urine Bilirubin Negative (NEG) Urine Urobilinogen Dipstick 1.0mg/dL (0.2 mg/dL) Urine Leukocyte Esterase Large (NEG) Urine RBC 3-5/HPF (0-2) Urine WBC Tntc/HPF (0-4) Urine Squamous Epithelial Cells Occ/LPF Urine Bacteria Mod/HPF (0-FEW) White Blood Count 5.6x10^3/uL (4.0-11.0) Red Blood Count 4.49x10^6/uL (3.50-5.40) Hemoglobin 13.0g/dL (12.0-15.5) Hematocrit 37.2% (36.0-47.0) Mean Corpuscular Volume 83fL (79-100) Mean Corpuscular Hemoglobin 29pg (25-35) Mean Corpuscular Hemoglobin Concent 35g/dL (31-37) Red Cell Distribution Width 13.6% (11.5-14.5) Platelet Count 257x10^3/uL (140-400) Neutrophils (%) (Auto) 51% (31-73) Lymphocytes (%) (Auto) 31% (24-48) Monocytes (%) (Auto) 10% (0-9) Eosinophils (%) (Auto) 8% (0-3) Basophils (%) (Auto) 1% (0-3) Neutrophils # (Auto) 2.8x10^3uL (1.8-7.7) Lymphocytes # (Auto) 1.7x10^3/uL (1.0-4.8) Monocytes # (Auto) 0.5x10^3/uL (0.0-1.1) Eosinophils # (Auto) 0.5x10^3/uL (0.0-0.7) Basophils # (Auto) 0.0x10^3/uL (0.0-0.2) Sodium Level 140mmol/L (136-145) Potassium Level 3.5mmol/L (3.5-5.1) Chloride Level 104mmol/L (98-107) Carbon Dioxide Level 25mmol/L (21-32) Anion Gap 11 (6-14) Blood Urea Nitrogen 13mg/dL (7-20) Creatinine 1.0mg/dL (0.6-1.0) Estimated GFR (Cockcroft-Gault) 71.0 Glucose Level 175mg/dL (70-99) Calcium Level 8.2mg/dL (8.5-10.1) Magnesium Level 1.8mg/dL (1.8-2.4) Medications Current Medications Sodium Chloride (Iv Sodium Chloride 0.9% 1000ml Bag) 1,000 ml @ 1,000 mls/hr 1X ONCE IV Last administered on 06/28/16 13:02; Start 06/28/16 at 12:15; Stop 06/28/16 at 13:14; Status DC Ketorolac Tromethamine (Toradol) 30 mg 1X ONCE IV Last administered on 13:03; Start 06/28/16 at 12:15; Stop 06/28/16 at 12:16; Status DC Oseltamivir Phosphate (Tamiflu) 75 mg 1X STAT PO Last administered on 13:05; Start 06/28/16 at 12:45; Stop 06/28/16 at 12:48; Status DC Ondansetron HCl 4 mg 4 mg PRN Q8HRS PRN IV NAUSEA/VOMITING; Start 06/28/16 at 13:00; Stop 06/29/16 at 13:10; Status DC Sodium Chloride (Iv Sodium Chloride 0.9% 1000ml Bag) 1,000 ml @ 125 mls/hr Q8H IV ; Start 06/28/16 at 13:30; Stop 06/28/16 at 17:43; Status DC Oseltamivir Phosphate 75 mg 75 mg BID PO Last administered on 06/30/16 09:28; Start 06/28/16 at 21:00; Stop 07/03/16 at 20:59 Potassium Chloride/Dextrose/ Sod Cl (KCl 20 Meq In D5W-1/2 NS) 1,000 ml @ 75 mls/hr [id number] IV Last administered on 06/30/16 11:00; Start 06/28/16 at 19:00 Enoxaparin Sodium (Lovenox 40mg Syringe) 40 mg Q24H SQ Last administered on 20:10; Start 06/28/16 at 21:00 Acetaminophen (Tylenol) 650 mg PRN Q4HRS PRN PO MILD PAIN / TEMP Last administered on 06/29/16 08:47; Start 06/28/16 at 17:45 Aspirin (Emiliano Aspirin) 325 mg DAILYWBKFT PO Last administered on 06/30/16 09: 28; Start 06/29/16 at 08:00 Baclofen (Lioresal) 10 mg BID PO ; Start 06/28/16 at 21:00; Stop 06/28/16 at 21: 00; Status DC Baclofen (Lioresal) 20 mg DAILY16 PO ; Start 06/29/16 at 16:00; Stop 06/29/16 at 16:00; Status DC Hydrochlorothiazide (Hydrodiuril) 25 mg DAILY PO Last administered on 09:28; Start 06/29/16 at 09:00 Levothyroxine Sodium (Synthroid) 100 mcg DAILY07 PO Last administered on 09:28; Start 06/29/16 at 07:00 Losartan Potassium (Cozaar) 50 mg DAILY PO Last administered on 06/30/16 09:43 ; Start 06/29/16 at 09:00 Multivitamins/ Calcium (Thera M Plus) 1 tab DAILY PO Last administered on 09:29; Start 06/29/16 at 09:00 Oxybutynin Chloride (Ditropan) 5 mg [id number] PO Last administered on 06/30/16 14 :17; Start 06/28/16 at 21:00 Potassium Chloride (Klor-Con) 20 meq DAILYWBKFT PO Last administered on 09:28; Start 06/29/16 at 08:00 Tizanidine HCl (Zanaflex) 4 mg QHS PO ; Start 06/28/16 at 21:00; Stop 06/28/16 at 21:00; Status DC Tizanidine HCl (Zanaflex) 2 mg BID PO Last administered on 06/30/16 09:29; Start 06/28/16 at 21:00 Ondansetron HCl (Zofran) 4 mg PRN Q6HRS PRN IV NAUSEA/VOMITING; Start 06/28/16 at 17:45 Baclofen (Lioresal) 10 mg DAILY08 PO Last administered on 06/30/16 09:29; Start 06/29/16 at 08:00 Baclofen (Lioresal) 20 mg BID@14,21 PO Last administered on 06/30/16 14:17; Start 06/29/16 at 21:00 Tizanidine HCl (Zanaflex) 4 mg QHS PO Last administered on 06/29/16 20:09; Start 06/28/16 at 21:00 Clonidine HCl (Catapres) 0.1 mg PRN Q6HRS PRN PO HYPERTENSION, SEE COMMENTS; Start 06/28/16 at 18:00 Potassium Chloride (KCl Oral Soln) 40 meq 1X ONCE PO ; Start 06/29/16 at 09:00 ; Stop 06/29/16 at 14:19; Status DC Potassium Chloride (KCl Oral Soln) 40 meq 1X ONCE PO ; Start 06/29/16 at 14:15 ; Stop 06/29/16 at 14:22; Status DC Potassium Chloride (KCl Oral Soln) 40 meq ONCE ONCE PEG Last administered on 14:52; Start 06/29/16 at 14:30; Stop 06/29/16 at 14:32; Status DC Potassium Chloride (KCl Oral Soln) 40 meq 1X ONCE PEG ; Start 06/29/16 at 14:30 ; Stop 06/29/16 at 14:31; Status UNV Bisacodyl (Dulcolax Tab) 10 mg PRN DAILY PRN PO CONSTIPATION; Start 06/30/16 at 10:45 Senna/Docusate Sodium (Senna Plus) 1 tab PRN BID PRN PO CONSTIPATION; Start at 10:45 Active Scripts Active Reported Tizanidine Hcl 4 Mg Tablet 4 Mg PO DAILYBFRSUP Tizanidine Hcl 4 Mg Tablet 2 Mg PO DAILY07 Tizanidine Hcl 4 Mg Tablet 1 Tab PO QHS Multivitamins (Multivitamin) 1 Each Tablet 1 Each PO DAILY Hydrochlorothiazide Tablet (Hydrochlorothiazide) 12.5 Mg Tablet 1 Tab PO DAILY Baclofen 20 Mg Tablet 20 Mg PO BIDACLD Baclofen 10 Mg Tablet 10 Mg PO DAILY07 Losartan Potassium 50 Mg Tablet 50 Mg PO DAILY Aspirin 325 Mg Tablet 1 Tab PO DAILY [multivitamin] [tizanidine] [losartan] [baclofen] [hydrochlorothiazide] Vitals/I & O Vital Sign - Last 24 Hours 06/29/16 06/29/16 06/29/16 06/29/16 14:50 19:00 20:00 23:00 Temp 98.2 98.8 98.1 98.2 98.8 98.1 Pulse 74 87 78 Resp 18 18 18 B/P 117/83 125/96 109/83 Pulse Ox 96 100 96 O2 Delivery Room Air Room Air Room Air Room Air 06/30/16 06/30/16 06/30/16 06/30/16 03:00 07:00 08:00 09:43 Temp 98.6 98.1 98.6 98.1 Pulse 57 66 66 Resp 18 20 B/P 140/98 142/98 142/98 Pulse Ox 98 98 O2 Delivery Room Air Room Air Room Air 06/30/16 11:00 Temp 98.4 98.4 Pulse 62 Resp 20 B/P 106/61 Pulse Ox 94 O2 Delivery Room Air Intake and Output 06/29/16 06/29/16 06/30/16 15:00 23:00 07:00 Intake Total 1480 ml 350 ml Output Total 300 ml Balance 1480 ml -300 ml 350 ml NOAH BAUGH MD Jun 30, 2016 14:43
[2016-06-30 14:59] VITALS: BP 109/86
[2016-06-30 19:00] VITALS: BP 128/76
[2016-06-30] MEDS: ENOXAPARIN 40 MG/0.4 ML DISP.SYRIN. SQ SCH (21:20)
[2016-06-30 23:43] VITALS: BP 138/83
[2016-07-01 03:05] VITALS: BP 119/63
[2016-07-01] MEDS: LEVOTHYROXINE 100 MCG TABLET PO SCH (06:20)
[2016-07-01 07:00] VITALS: BP 124/76
[2016-07-01] MEDS: POTASSIUM CL 20MEQ D5-0.45NACL 1,000 ML IV SCH (08:24)
[2016-07-01] MEDS: OXYBUTYNIN CHLORIDE 5 MG TABLET PO SCH ×3 (08:25→20:03)
[2016-07-01] MEDS: ASPIRIN 325 MG TABLET PO SCH (08:25)
[2016-07-01] MEDS: HYDROCHLOROTHIAZIDE 25 MG TABLET PO SCH (08:26)
[2016-07-01] MEDS: BACLOFEN 10 MG TABLET PO SCH ×3 (08:26→20:03)
[2016-07-01] MEDS: MULTIVITAMIN with MINERAL TABLET. PO SCH (08:26)
[2016-07-01] MEDS: tiZANidine 4 MG TABLET. PO SCH ×3 (08:26→20:03)
[2016-07-01] MEDS: POTASSIUM CHLORIDE 20 MEQ TABLET.ER. PO SCH (08:26)
[2016-07-01] MEDS: OSELTAMIVIR 75 MG CAPSULE PO SCH ×2 (08:26→20:04)
[2016-07-01] MEDS: LOSARTAN POTASSIUM 50 MG TABLET. PO SCH (08:27)
[2016-07-01 11:00] VITALS: BP 128/86
--- NOTE | 2016-07-01 11:01 | PDOC ---
PROGRESS NOTES Subjective Subjective note bilateral leg spasticity and weakness. moving legs better. discussed MARRosibel and she needs to check with her work to see how much time she has off. lab reviewed. urine culture growing GNR and will start vantin. Objective Objective Vital Signs Date Time Temp Pulse Resp B/P Pulse Ox O2 Delivery O2 Flow Rate FiO2 07/01/16 08:27 96 119/63 07/01/16 07:00 98.0 22 97 Room Air 98.0 Intake and Output 07/01/16 06:59 Intake Total 1750 ml Output Total 1 ml Balance 1749 ml Intake Oral 850 ml IV Total 900 ml Stool Total 1 ml # Voids 5 Physical Exam Abdomen: Soft Heart: Regular rate, Normal S1, Normal S2 Extremities: No edema General: Alert HEENT: Atraumatic Lungs: Clear to auscultation MUSCULOSKELETAL: Other (bilateral leg weakness and spasticity) Neuro: Normal speech Psych/Mental Status: Mental status NL Skin: No rashes Assessment Assessment Problems Medical Problems: Influenza type A. 2. Pseudo exacerbation of multiple sclerosis secondary to influenza type A. 3. Hypertension. The blood pressure is elevated. 4. Hypothyroidism. 5. Mobility and self-care deficits secondary to influenza A and pseudo exacerbation of multiple sclerosis. hypokalemia resolved GNR uti (1) Exacerbation of multiple sclerosis Status: Acute (2) Influenza A Status: Acute Plan Plan of Care start vantin await final urine culture report continue tamiflu continue iv fluids PT and OT [facility] screen lovenox for DVT prophylaxis baclofen Comment Review of Relevant I have reviewed the following items bridgette (where applicable) has been applied. Labs Laboratory Tests Test 06/29/16 16:05 06/30/16 09:00 Urine Color Yellow Urine Clarity Turbid Urine pH 7.0 Urine Specific [place] 1.010 Urine Protein Negativemg/dL (NEG-TRACE) Urine Glucose (UA) Negativemg/dL (NEG) Urine Ketones (Stick) Negativemg/dL (NEG) Urine Blood Moderate (NEG) Urine Nitrite Positive (NEG) Urine Bilirubin Negative (NEG) Urine Urobilinogen Dipstick 1.0mg/dL (0.2 mg/dL) Urine Leukocyte Esterase Large (NEG) Urine RBC 3-5/HPF (0-2) Urine WBC Tntc/HPF (0-4) Urine Squamous Epithelial Cells Occ/LPF Urine Bacteria Mod/HPF (0-FEW) White Blood Count 5.6x10^3/uL (4.0-11.0) Red Blood Count 4.49x10^6/uL (3.50-5.40) Hemoglobin 13.0g/dL (12.0-15.5) Hematocrit 37.2% (36.0-47.0) Mean Corpuscular Volume 83fL (79-100) Mean Corpuscular Hemoglobin 29pg (25-35) Mean Corpuscular Hemoglobin Concent 35g/dL (31-37) Red Cell Distribution Width 13.6% (11.5-14.5) Platelet Count 257x10^3/uL (140-400) Neutrophils (%) (Auto) 51% (31-73) Lymphocytes (%) (Auto) 31% (24-48) Monocytes (%) (Auto) 10% (0-9) Eosinophils (%) (Auto) 8% (0-3) Basophils (%) (Auto) 1% (0-3) Neutrophils # (Auto) 2.8x10^3uL (1.8-7.7) Lymphocytes # (Auto) 1.7x10^3/uL (1.0-4.8) Monocytes # (Auto) 0.5x10^3/uL (0.0-1.1) Eosinophils # (Auto) 0.5x10^3/uL (0.0-0.7) Basophils # (Auto) 0.0x10^3/uL (0.0-0.2) Sodium Level 140mmol/L (136-145) Potassium Level 3.5mmol/L (3.5-5.1) Chloride Level 104mmol/L (98-107) Carbon Dioxide Level 25mmol/L (21-32) Anion Gap 11 (6-14) Blood Urea Nitrogen 13mg/dL (7-20) Creatinine 1.0mg/dL (0.6-1.0) Estimated GFR (Cockcroft-Gault) 71.0 Glucose Level 175mg/dL (70-99) Calcium Level 8.2mg/dL (8.5-10.1) Magnesium Level 1.8mg/dL (1.8-2.4) Microbiology 06/29/16 Urine Culture - Preliminary, Resulted 06/29/16 Urine Culture Result 1 (WILLAM) - Preliminary, Resulted Medications Current Medications Sodium Chloride (Iv Sodium Chloride 0.9% 1000ml Bag) 1,000 ml @ 1,000 mls/hr 1X ONCE IV Last administered on 06/28/16 13:02; Start 06/28/16 at 12:15; Stop 06/28/16 at 13:14; Status DC Ketorolac Tromethamine (Toradol) 30 mg 1X ONCE IV Last administered on 13:03; Start 06/28/16 at 12:15; Stop 06/28/16 at 12:16; Status DC Oseltamivir Phosphate (Tamiflu) 75 mg 1X STAT PO Last administered on 13:05; Start 06/28/16 at 12:45; Stop 06/28/16 at 12:48; Status DC Ondansetron HCl 4 mg 4 mg PRN Q8HRS PRN IV NAUSEA/VOMITING; Start 06/28/16 at 13:00; Stop 06/29/16 at 13:10; Status DC Sodium Chloride (Iv Sodium Chloride 0.9% 1000ml Bag) 1,000 ml @ 125 mls/hr Q8H IV ; Start 06/28/16 at 13:30; Stop 06/28/16 at 17:43; Status DC Oseltamivir Phosphate 75 mg 75 mg BID PO Last administered on 07/01/16 08:26; Start 06/28/16 at 21:00; Stop 07/03/16 at 20:59 Potassium Chloride/Dextrose/ Sod Cl (KCl 20 Meq In D5W-1/2 NS) 1,000 ml @ 40 mls/hr Q24H IV Last administered on 06/30/16 11:00; Start 06/28/16 at 19:00 Enoxaparin Sodium (Lovenox 40mg Syringe) 40 mg Q24H SQ Last administered on 21:20; Start 06/28/16 at 21:00 Acetaminophen (Tylenol) 650 mg PRN Q4HRS PRN PO MILD PAIN / TEMP Last administered on 06/29/16 08:47; Start 06/28/16 at 17:45 Aspirin (Emiliano Aspirin) 325 mg DAILYWBKFT PO Last administered on 07/01/16 08: 25; Start 06/29/16 at 08:00 Baclofen (Lioresal) 10 mg BID PO ; Start 06/28/16 at 21:00; Stop 06/28/16 at 21: 00; Status DC Baclofen (Lioresal) 20 mg DAILY16 PO ; Start 06/29/16 at 16:00; Stop 06/29/16 at 16:00; Status DC Hydrochlorothiazide (Hydrodiuril) 25 mg DAILY PO Last administered on 08:26; Start 06/29/16 at 09:00 Levothyroxine Sodium (Synthroid) 100 mcg DAILY07 PO Last administered on 06:20; Start 06/29/16 at 07:00 Losartan Potassium (Cozaar) 50 mg DAILY PO Last administered on 07/01/16 08:27 ; Start 06/29/16 at 09:00 Multivitamins/ Calcium (Thera M Plus) 1 tab DAILY PO Last administered on 08:26; Start 06/29/16 at 09:00 Oxybutynin Chloride (Ditropan) 5 mg [id number] PO Last administered on 07/01/16 08 :25; Start 06/28/16 at 21:00 Potassium Chloride (Klor-Con) 20 meq DAILYWBKFT PO Last administered on 08:26; Start 06/29/16 at 08:00 Tizanidine HCl (Zanaflex) 4 mg QHS PO ; Start 06/28/16 at 21:00; Stop 06/28/16 at 21:00; Status DC Tizanidine HCl (Zanaflex) 2 mg BID PO Last administered on 06/30/16 09:29; Start 06/28/16 at 21:00; Stop 06/30/16 at 21:26; Status DC Ondansetron HCl (Zofran) 4 mg PRN Q6HRS PRN IV NAUSEA/VOMITING; Start 06/28/16 at 17:45 Baclofen (Lioresal) 10 mg DAILY08 PO Last administered on 07/01/16 08:26; Start 06/29/16 at 08:00 Baclofen (Lioresal) 20 mg BID@14,21 PO Last administered on 06/30/16 21:22; Start 06/29/16 at 21:00 Tizanidine HCl (Zanaflex) 4 mg QHS PO Last administered on 06/30/16 21:21; Start 06/28/16 at 21:00 Clonidine HCl (Catapres) 0.1 mg PRN Q6HRS PRN PO HYPERTENSION, SEE COMMENTS; Start 06/28/16 at 18:00 Potassium Chloride (KCl Oral Soln) 40 meq 1X ONCE PO ; Start 06/29/16 at 09:00 ; Stop 06/29/16 at 14:19; Status DC Potassium Chloride (KCl Oral Soln) 40 meq 1X ONCE PO ; Start 06/29/16 at 14:15 ; Stop 06/29/16 at 14:22; Status DC Potassium Chloride (KCl Oral Soln) 40 meq ONCE ONCE PEG Last administered on 14:52; Start 06/29/16 at 14:30; Stop 06/29/16 at 14:32; Status DC Potassium Chloride (KCl Oral Soln) 40 meq 1X ONCE PEG ; Start 06/29/16 at 14:30 ; Stop 06/29/16 at 14:31; Status UNV Bisacodyl (Dulcolax Tab) 10 mg PRN DAILY PRN PO CONSTIPATION; Start 06/30/16 at 10:45 Senna/Docusate Sodium (Senna Plus) 1 tab PRN BID PRN PO CONSTIPATION; Start at 10:45 Tizanidine HCl (Zanaflex) 2 mg BID94 PO Last administered on 07/01/16 08:26; Start 07/01/16 at 09:00 Active Scripts Active Reported Tizanidine Hcl 4 Mg Tablet 4 Mg PO DAILYBFRSUP Tizanidine Hcl 4 Mg Tablet 2 Mg PO DAILY07 Tizanidine Hcl 4 Mg Tablet 1 Tab PO QHS Multivitamins (Multivitamin) 1 Each Tablet 1 Each PO DAILY Hydrochlorothiazide Tablet (Hydrochlorothiazide) 12.5 Mg Tablet 1 Tab PO DAILY Baclofen 20 Mg Tablet 20 Mg PO BIDACLD Baclofen 10 Mg Tablet 10 Mg PO DAILY07 Losartan Potassium 50 Mg Tablet 50 Mg PO DAILY Aspirin 325 Mg Tablet 1 Tab PO DAILY [multivitamin] [tizanidine] [losartan] [baclofen] [hydrochlorothiazide] Vitals/I & O Vital Sign - Last 24 Hours 06/30/16 06/30/16 06/30/16 06/30/16 11:00 14:59 19:00 20:10 Temp 98.4 98.6 98.0 98.4 98.6 98.0 Pulse 62 70 68 Resp B/P 106/61 109/86 128/76 Pulse Ox 94 98 97 O2 Delivery Room Air Room Air Room Air 06/30/16 07/01/16 07/01/16 07/01/16 23:43 03:05 07:00 08:27 Temp 97.7 97.3 98.0 97.7 97.3 98.0 Pulse 65 96 76 96 Resp B/P 138/83 119/63 124/76 119/63 Pulse Ox 98 96 97 O2 Delivery Room Air Room Air Room Air Intake and Output 06/30/16 06/30/16 07/01/16 14:59 22:59 06:59 Intake Total 280 ml 570 ml 900 ml Output Total 1 ml Balance 280 ml 569 ml 900 ml NOAH BAUGH MD Jul 01, 2016 11:01
--- NOTE | 2016-07-01 11:22 | PDOC ---
PROGRESS NOTES Subjective Subjective She feels better. Objective Objective Vital Signs Date Time Temp Pulse Resp B/P Pulse Ox O2 Delivery O2 Flow Rate FiO2 07/01/16 08:27 96 119/63 07/01/16 07:00 98.0 22 97 Room Air 98.0 Intake and Output 07/01/16 07:00 Intake Total 1750 ml Output Total 1 ml Balance 1749 ml Intake Oral 850 ml IV Total 900 ml Stool Total 1 ml # Voids 5 Physical Exam Physical Exam She is supine in bed and moving lower extremities better today but continues with weakness of left foot dorsiflexors.She refused to get bilateral AFOs with T -strap and would like to talk to her neurologist before obtaining them as she is concerned about using metal braces and she had 268 ml. post voiding urine residual. Assessment Assessment Problems Medical Problems: (1) Exacerbation of multiple sclerosis Status: Acute (2) Influenza A Status: Acute Plan Plan of Care She can benefit from trial of flomax and from use of ascorbic acid.To continue present rehab efforts as tolerated. Comment Review of Relevant I have reviewed the following items bridgette (where applicable) has been applied. Labs Laboratory Tests Test 06/29/16 16:05 06/30/16 09:00 Urine Color Yellow Urine Clarity Turbid Urine pH 7.0 Urine Specific [place] 1.010 Urine Protein Negativemg/dL (NEG-TRACE) Urine Glucose (UA) Negativemg/dL (NEG) Urine Ketones (Stick) Negativemg/dL (NEG) Urine Blood Moderate (NEG) Urine Nitrite Positive (NEG) Urine Bilirubin Negative (NEG) Urine Urobilinogen Dipstick 1.0mg/dL (0.2 mg/dL) Urine Leukocyte Esterase Large (NEG) Urine RBC 3-5/HPF (0-2) Urine WBC Tntc/HPF (0-4) Urine Squamous Epithelial Cells Occ/LPF Urine Bacteria Mod/HPF (0-FEW) White Blood Count 5.6x10^3/uL (4.0-11.0) Red Blood Count 4.49x10^6/uL (3.50-5.40) Hemoglobin 13.0g/dL (12.0-15.5) Hematocrit 37.2% (36.0-47.0) Mean Corpuscular Volume 83fL (79-100) Mean Corpuscular Hemoglobin 29pg (25-35) Mean Corpuscular Hemoglobin Concent 35g/dL (31-37) Red Cell Distribution Width 13.6% (11.5-14.5) Platelet Count 257x10^3/uL (140-400) Neutrophils (%) (Auto) 51% (31-73) Lymphocytes (%) (Auto) 31% (24-48) Monocytes (%) (Auto) 10% (0-9) Eosinophils (%) (Auto) 8% (0-3) Basophils (%) (Auto) 1% (0-3) Neutrophils # (Auto) 2.8x10^3uL (1.8-7.7) Lymphocytes # (Auto) 1.7x10^3/uL (1.0-4.8) Monocytes # (Auto) 0.5x10^3/uL (0.0-1.1) Eosinophils # (Auto) 0.5x10^3/uL (0.0-0.7) Basophils # (Auto) 0.0x10^3/uL (0.0-0.2) Sodium Level 140mmol/L (136-145) Potassium Level 3.5mmol/L (3.5-5.1) Chloride Level 104mmol/L (98-107) Carbon Dioxide Level 25mmol/L (21-32) Anion Gap 11 (6-14) Blood Urea Nitrogen 13mg/dL (7-20) Creatinine 1.0mg/dL (0.6-1.0) Estimated GFR (Cockcroft-Gault) 71.0 Glucose Level 175mg/dL (70-99) Calcium Level 8.2mg/dL (8.5-10.1) Magnesium Level 1.8mg/dL (1.8-2.4) Microbiology 06/29/16 Urine Culture - Preliminary, Resulted 06/29/16 Urine Culture Result 1 (WILLAM) - Preliminary, Resulted Medications Current Medications Sodium Chloride (Iv Sodium Chloride 0.9% 1000ml Bag) 1,000 ml @ 1,000 mls/hr 1X ONCE IV Last administered on 06/28/16 13:02; Start 06/28/16 at 12:15; Stop 06/28/16 at 13:14; Status DC Ketorolac Tromethamine (Toradol) 30 mg 1X ONCE IV Last administered on 13:03; Start 06/28/16 at 12:15; Stop 06/28/16 at 12:16; Status DC Oseltamivir Phosphate (Tamiflu) 75 mg 1X STAT PO Last administered on 13:05; Start 06/28/16 at 12:45; Stop 06/28/16 at 12:48; Status DC Ondansetron HCl 4 mg 4 mg PRN Q8HRS PRN IV NAUSEA/VOMITING; Start 06/28/16 at 13:00; Stop 06/29/16 at 13:10; Status DC Sodium Chloride (Iv Sodium Chloride 0.9% 1000ml Bag) 1,000 ml @ 125 mls/hr Q8H IV ; Start 06/28/16 at 13:30; Stop 06/28/16 at 17:43; Status DC Oseltamivir Phosphate 75 mg 75 mg BID PO Last administered on 07/01/16 08:26; Start 06/28/16 at 21:00; Stop 07/03/16 at 20:59 Potassium Chloride/Dextrose/ Sod Cl (KCl 20 Meq In D5W-1/2 NS) 1,000 ml @ 40 mls/hr Q24H IV Last administered on 06/30/16 11:00; Start 06/28/16 at 19:00 Enoxaparin Sodium (Lovenox 40mg Syringe) 40 mg Q24H SQ Last administered on 21:20; Start 06/28/16 at 21:00 Acetaminophen (Tylenol) 650 mg PRN Q4HRS PRN PO MILD PAIN / TEMP Last administered on 06/29/16 08:47; Start 06/28/16 at 17:45 Aspirin (Emiliano Aspirin) 325 mg DAILYWBKFT PO Last administered on 07/01/16 08: 25; Start 06/29/16 at 08:00 Baclofen (Lioresal) 10 mg BID PO ; Start 06/28/16 at 21:00; Stop 06/28/16 at 21: 00; Status DC Baclofen (Lioresal) 20 mg DAILY16 PO ; Start 06/29/16 at 16:00; Stop 06/29/16 at 16:00; Status DC Hydrochlorothiazide (Hydrodiuril) 25 mg DAILY PO Last administered on 08:26; Start 06/29/16 at 09:00 Levothyroxine Sodium (Synthroid) 100 mcg DAILY07 PO Last administered on 06:20; Start 06/29/16 at 07:00 Losartan Potassium (Cozaar) 50 mg DAILY PO Last administered on 07/01/16 08:27 ; Start 06/29/16 at 09:00 Multivitamins/ Calcium (Thera M Plus) 1 tab DAILY PO Last administered on 08:26; Start 06/29/16 at 09:00 Oxybutynin Chloride (Ditropan) 5 mg [id number] PO Last administered on 07/01/16 08 :25; Start 06/28/16 at 21:00 Potassium Chloride (Klor-Con) 20 meq DAILYWBKFT PO Last administered on 08:26; Start 06/29/16 at 08:00 Tizanidine HCl (Zanaflex) 4 mg QHS PO ; Start 06/28/16 at 21:00; Stop 06/28/16 at 21:00; Status DC Tizanidine HCl (Zanaflex) 2 mg BID PO Last administered on 06/30/16 09:29; Start 06/28/16 at 21:00; Stop 06/30/16 at 21:26; Status DC Ondansetron HCl (Zofran) 4 mg PRN Q6HRS PRN IV NAUSEA/VOMITING; Start 06/28/16 at 17:45 Baclofen (Lioresal) 10 mg DAILY08 PO Last administered on 07/01/16 08:26; Start 06/29/16 at 08:00 Baclofen (Lioresal) 20 mg BID@14,21 PO Last administered on 06/30/16 21:22; Start 06/29/16 at 21:00 Tizanidine HCl (Zanaflex) 4 mg QHS PO Last administered on 06/30/16 21:21; Start 06/28/16 at 21:00 Clonidine HCl (Catapres) 0.1 mg PRN Q6HRS PRN PO HYPERTENSION, SEE COMMENTS; Start 06/28/16 at 18:00 Potassium Chloride (KCl Oral Soln) 40 meq 1X ONCE PO ; Start 06/29/16 at 09:00 ; Stop 06/29/16 at 14:19; Status DC Potassium Chloride (KCl Oral Soln) 40 meq 1X ONCE PO ; Start 06/29/16 at 14:15 ; Stop 06/29/16 at 14:22; Status DC Potassium Chloride (KCl Oral Soln) 40 meq ONCE ONCE PEG Last administered on t 14:52; Start 06/29/16 at 14:30; Stop 06/29/16 at 14:32; Status DC Potassium Chloride (KCl Oral Soln) 40 meq 1X ONCE PEG ; Start 06/29/16 at 14:30 ; Stop 06/29/16 at 14:31; Status UNV Bisacodyl (Dulcolax Tab) 10 mg PRN DAILY PRN PO CONSTIPATION; Start 06/30/16 at 10:45 Senna/Docusate Sodium (Senna Plus) 1 tab PRN BID PRN PO CONSTIPATION; Start at 10:45 Tizanidine HCl (Zanaflex) 2 mg [id number] PO Last administered on 07/01/16 08:26; Start 07/01/16 at 09:00 Cefpodoxime Proxetil (Vantin) 100 mg BID PO ; Start 07/01/16 at 11:00 Active Scripts Active Reported Tizanidine Hcl 4 Mg Tablet 4 Mg PO DAILYBFRSUP Tizanidine Hcl 4 Mg Tablet 2 Mg PO DAILY07 Tizanidine Hcl 4 Mg Tablet 1 Tab PO QHS Multivitamins (Multivitamin) 1 Each Tablet 1 Each PO DAILY Hydrochlorothiazide Tablet (Hydrochlorothiazide) 12.5 Mg Tablet 1 Tab PO DAILY Baclofen 20 Mg Tablet 20 Mg PO BIDACLD Baclofen 10 Mg Tablet 10 Mg PO DAILY07 Losartan Potassium 50 Mg Tablet 50 Mg PO DAILY Aspirin 325 Mg Tablet 1 Tab PO DAILY [multivitamin] [tizanidine] [losartan] [baclofen] [hydrochlorothiazide] Vitals/I & O Vital Sign - Last 24 Hours 06/30/16 06/30/16 06/30/16 06/30/16 14:59 19:00 20:10 23:43 Temp 98.6 98.0 97.7 98.6 98.0 97.7 Pulse 70 68 65 Resp 20 18 18 B/P 109/86 128/76 138/83 Pulse Ox 98 97 98 O2 Delivery Room Air Room Air Room Air 2/07/01/16 07/01/16 03:05 07:00 08:27 Temp 97.3 98.0 97.3 98.0 Pulse 96 76 96 Resp 20 22 B/P 119/63 124/76 119/63 Pulse Ox 96 97 O2 Delivery Room Air Room Air Intake and Output 06/30/16 06/30/16 07/01/16 15:00 23:00 07:00 Intake Total 280 ml 570 ml 900 ml Output Total 1 ml Balance 280 ml 569 ml 900 ml KIMBERLY KAY MD Jul 01, 2016 11:22
[2016-07-01] MEDS: ASCORBIC ACID 500 MG TABLET PO SCH (12:20)
[2016-07-01] MEDS: CEFPODOXIME PROXETIL 100 MG TABLET PO SCH ×2 (12:20→20:04)
[2016-07-01 15:00] VITALS: BP 130/88
[2016-07-01 19:00] VITALS: BP 131/87
[2016-07-01] MEDS: ENOXAPARIN 40 MG/0.4 ML DISP.SYRIN. SQ SCH (20:03)
[2016-07-01 22:42] VITALS: BP 121/86
[2016-07-02] MEDS: POTASSIUM CL 20MEQ D5-0.45NACL 1,000 ML IV SCH (02:36)
[2016-07-02] MEDS: LEVOTHYROXINE 100 MCG TABLET PO SCH (06:22)
[2016-07-02 07:00] VITALS: BP 150/90
[2016-07-02] MEDS: ASPIRIN 325 MG TABLET PO SCH (07:39)
[2016-07-02] MEDS: BACLOFEN 10 MG TABLET PO SCH ×3 (07:39→21:04)
[2016-07-02] MEDS: POTASSIUM CHLORIDE 20 MEQ TABLET.ER. PO SCH (07:39)
[2016-07-02] MEDS: CEFPODOXIME PROXETIL 100 MG TABLET PO SCH ×2 (08:41→21:04)
[2016-07-02] MEDS: MULTIVITAMIN with MINERAL TABLET. PO SCH (08:41)
[2016-07-02] MEDS: ASCORBIC ACID 500 MG TABLET PO SCH (08:41)
[2016-07-02] MEDS: HYDROCHLOROTHIAZIDE 25 MG TABLET PO SCH (08:42)
[2016-07-02] MEDS: OXYBUTYNIN CHLORIDE 5 MG TABLET PO SCH (08:42)
[2016-07-02] MEDS: OSELTAMIVIR 75 MG CAPSULE PO SCH ×2 (08:42→21:04)
[2016-07-02] MEDS: LOSARTAN POTASSIUM 50 MG TABLET. PO SCH (08:42)
[2016-07-02] MEDS: tiZANidine 4 MG TABLET. PO SCH ×3 (08:43→21:04)
--- NOTE | 2016-07-02 09:51 | PDOC ---
PROGRESS NOTES Subjective Subjective legs are weak. urine culture grew klebsiella sensitive to cephalosporins and will continue vantin. drinking fluids better so will d/c iv fluids. awaiting MAR screen. will d/c oxybutynin due to urine retention and was started on flomax Objective Objective Vital Signs Date Time Temp Pulse Resp B/P Pulse Ox O2 Delivery O2 Flow Rate FiO2 07/02/16 08:42 63 150/90 07/02/16 07:00 98.2 22 97 Room Air 98.2 Intake and Output 07/02/16 07:00 Intake Total 1850 ml Balance 1850 ml Intake Oral 1850 ml # Voids 7 Physical Exam Abdomen: Soft Heart: Regular rate, Normal S1, Normal S2 Extremities: No edema General: Alert HEENT: Atraumatic Lungs: Clear to auscultation Neuro: Normal speech Psych/Mental Status: Mental status NL Skin: No rashes Assessment Assessment Problems Medical Problems: Influenza type A. 2. Pseudo exacerbation of multiple sclerosis secondary to influenza type A. 3. Hypertension. 4. Hypothyroidism. 5. Mobility and self-care deficits secondary to influenza A and pseudo exacerbation of multiple sclerosis. hypokalemia resolved Klebsiella uti neurogenic bladder (1) Exacerbation of multiple sclerosis Status: Acute (2) Influenza A Status: Acute Plan Plan of Care continue flomax d/c ditropan continue vantin d/c iv fluids PT and OT await insurance decision for [facility] continue baclofen and tizanidine continue lovenox for dvt prophylaxis post void bladder scan. straight cath if 240cc or higher consider urecholine Comment Review of Relevant I have reviewed the following items bridgette (where applicable) has been applied. Labs Microbiology 06/29/16 Urine Culture - Final, Complete 06/29/16 Urine Culture Result 1 (WILLAM) - Final, Complete 06/29/16 Antimicrobic Susceptibility - Final, Complete Medications Current Medications Sodium Chloride (Iv Sodium Chloride 0.9% 1000ml Bag) 1,000 ml @ 1,000 mls/hr 1X ONCE IV Last administered on 06/28/16 13:02; Start 06/28/16 at 12:15; Stop 06/28/16 at 13:14; Status DC Ketorolac Tromethamine (Toradol) 30 mg 1X ONCE IV Last administered on 13:03; Start 06/28/16 at 12:15; Stop 06/28/16 at 12:16; Status DC Oseltamivir Phosphate (Tamiflu) 75 mg 1X STAT PO Last administered on 13:05; Start 06/28/16 at 12:45; Stop 06/28/16 at 12:48; Status DC Ondansetron HCl 4 mg 4 mg PRN Q8HRS PRN IV NAUSEA/VOMITING; Start 06/28/16 at 13:00; Stop 06/29/16 at 13:10; Status DC Sodium Chloride (Iv Sodium Chloride 0.9% 1000ml Bag) 1,000 ml @ 125 mls/hr Q8H IV ; Start 06/28/16 at 13:30; Stop 06/28/16 at 17:43; Status DC Oseltamivir Phosphate 75 mg 75 mg BID PO Last administered on 07/02/16 08:42; Start 06/28/16 at 21:00; Stop 07/03/16 at 20:59 Potassium Chloride/Dextrose/ Sod Cl (KCl 20 Meq In D5W-1/2 NS) 1,000 ml @ 40 mls/hr Q24H IV Last administered on 07/02/16 02:36; Start 06/28/16 at 19:00 Enoxaparin Sodium (Lovenox 40mg Syringe) 40 mg Q24H SQ Last administered on 20:03; Start 06/28/16 at 21:00 Acetaminophen (Tylenol) 650 mg PRN Q4HRS PRN PO MILD PAIN / TEMP Last administered on 06/29/16 08:47; Start 06/28/16 at 17:45 Aspirin (Emiliano Aspirin) 325 mg DAILYWBKFT PO Last administered on 07/02/16 07: 39; Start 06/29/16 at 08:00 Baclofen (Lioresal) 10 mg BID PO ; Start 06/28/16 at 21:00; Stop 06/28/16 at 21: 00; Status DC Baclofen (Lioresal) 20 mg DAILY16 PO ; Start 06/29/16 at 16:00; Stop 06/29/16 at 16:00; Status DC Hydrochlorothiazide (Hydrodiuril) 25 mg DAILY PO Last administered on 08:42; Start 06/29/16 at 09:00 Levothyroxine Sodium (Synthroid) 100 mcg DAILY07 PO Last administered on 06:22; Start 06/29/16 at 07:00 Losartan Potassium (Cozaar) 50 mg DAILY PO Last administered on 07/02/16 08:42 ; Start 06/29/16 at 09:00 Multivitamins/ Calcium (Thera M Plus) 1 tab DAILY PO Last administered on 08:41; Start 06/29/16 at 09:00 Oxybutynin Chloride (Ditropan) 5 mg [id number] PO Last administered on 07/02/16 08 :42; Start 06/28/16 at 21:00 Potassium Chloride (Klor-Con) 20 meq DAILYWBKFT PO Last administered on 07:39; Start 06/29/16 at 08:00 Tizanidine HCl (Zanaflex) 4 mg QHS PO ; Start 06/28/16 at 21:00; Stop 06/28/16 at 21:00; Status DC Tizanidine HCl (Zanaflex) 2 mg BID PO Last administered on 06/30/16 09:29; Start 06/28/16 at 21:00; Stop 06/30/16 at 21:26; Status DC Ondansetron HCl (Zofran) 4 mg PRN Q6HRS PRN IV NAUSEA/VOMITING; Start 06/28/16 at 17:45 Baclofen (Lioresal) 10 mg DAILY08 PO Last administered on 07/02/16 07:39; Start 06/29/16 at 08:00 Baclofen (Lioresal) 20 mg BID@14,21 PO Last administered on 07/01/16 20:03; Start 06/29/16 at 21:00 Tizanidine HCl (Zanaflex) 4 mg QHS PO Last administered on 07/01/16 20:03; Start 06/28/16 at 21:00 Clonidine HCl (Catapres) 0.1 mg PRN Q6HRS PRN PO HYPERTENSION, SEE COMMENTS; Start 06/28/16 at 18:00 Potassium Chloride (KCl Oral Soln) 40 meq 1X ONCE PO ; Start 06/29/16 at 09:00 ; Stop 06/29/16 at 14:19; Status DC Potassium Chloride (KCl Oral Soln) 40 meq 1X ONCE PO ; Start 06/29/16 at 14:15 ; Stop 06/29/16 at 14:22; Status DC Potassium Chloride (KCl Oral Soln) 40 meq ONCE ONCE PEG Last administered on 14:52; Start 06/29/16 at 14:30; Stop 06/29/16 at 14:32; Status DC Potassium Chloride (KCl Oral Soln) 40 meq 1X ONCE PEG ; Start 06/29/16 at 14:30 ; Stop 06/29/16 at 14:31; Status UNV Bisacodyl (Dulcolax Tab) 10 mg PRN DAILY PRN PO CONSTIPATION; Start 06/30/16 at 10:45 Senna/Docusate Sodium (Senna Plus) 1 tab PRN BID PRN PO CONSTIPATION; Start at 10:45 Tizanidine HCl (Zanaflex) 2 mg [id number] PO Last administered on 07/02/16 08:43; Start 07/01/16 at 09:00 Cefpodoxime Proxetil (Vantin) 100 mg BID PO Last administered on 07/02/16 08: 41; Start 07/01/16 at 11:00 Ascorbic Acid (Vitamin C) 500 mg DAILY PO Last administered on 07/02/16 08:41 ; Start 07/01/16 at 12:00 Active Scripts Active Reported Tizanidine Hcl 4 Mg Tablet 4 Mg PO DAILYBFRSUP Tizanidine Hcl 4 Mg Tablet 2 Mg PO DAILY07 Tizanidine Hcl 4 Mg Tablet 1 Tab PO QHS Multivitamins (Multivitamin) 1 Each Tablet 1 Each PO DAILY Hydrochlorothiazide Tablet (Hydrochlorothiazide) 12.5 Mg Tablet 1 Tab PO DAILY Baclofen 20 Mg Tablet 20 Mg PO BIDACLD Baclofen 10 Mg Tablet 10 Mg PO DAILY07 Losartan Potassium 50 Mg Tablet 50 Mg PO DAILY Aspirin 325 Mg Tablet 1 Tab PO DAILY [multivitamin] [tizanidine] [losartan] [baclofen] [hydrochlorothiazide] Vitals/I & O Vital Sign - Last 24 Hours 07/01/16 07/01/16 07/01/16 07/01/16 11:00 15:00 19:00 20:00 Temp 97.4 98.0 98.4 97.4 98.0 98.4 Pulse 81 87 66 Resp 22 24 18 B/P 128/86 130/88 131/87 Pulse Ox 98 97 98 O2 Delivery Room Air Room Air Room Air Room Air 07/01/16 07/02/16 07/02/16 22:42 07:00 08:42 Temp 98.2 98.2 98.2 98.2 Pulse 66 63 63 Resp 18 22 B/P 121/86 150/90 150/90 Pulse Ox 98 97 O2 Delivery Room Air Room Air Intake and Output 07/01/16 07/01/16 07/02/16 15:00 23:00 07:00 Intake Total 1010 ml 240 ml 600 ml Balance 1010 ml 240 ml 600 ml NOAH BAUGH MD Jul 02, 2016 09:51
[2016-07-02 11:00] VITALS: BP 130/86
[2016-07-02 15:00] VITALS: BP 145/87
[2016-07-02 19:00] VITALS: BP 111/72
[2016-07-02] MEDS: ENOXAPARIN 40 MG/0.4 ML DISP.SYRIN. SQ SCH (21:04)
[2016-07-02 22:50] VITALS: BP 118/74
[2016-07-03 03:29] VITALS: BP 133/82
[2016-07-03 05:09] LABS: BASO % 1 % (0-3); EOS % 8 % (0-3); HEMATOCRIT 37.8 % (36.0-47.0); HEMOGLOBIN 13.2 g/dL (12.0-15.5); LYMPH # 2.1 x10^3/uL (1.0-4.8); LYMPH % 29 % (24-48); MEAN CORPUSCULAR HEMOGLOBIN 29 pg (25-35); MEAN CORPUSCULAR HGB CONC 35 g/dL (31-37); MEAN CORPUSCULAR VOLUME 84 fL (79-100); MONO % 9 % (0-9); NEUT % 54 % (31-73); PLATELET COUNT 259 x10^3/uL (140-400); RED CELL DISTRIBUTION WIDTH 13.7 % (11.5-14.5); WHITE BLOOD COUNT 7.3 x10^3/uL (4.0-11.0)
[2016-07-03 05:36] LABS: CALCIUM 9.3 mg/dL (8.5-10.1); CREATININE 0.8 mg/dL (0.6-1.0); GFR 91.9; MAGNESIUM 1.9 mg/dL (1.8-2.4); POTASSIUM 3.9 mmol/L (3.5-5.1)
[2016-07-03] MEDS: LEVOTHYROXINE 100 MCG TABLET PO SCH (06:30)
[2016-07-03 07:45] VITALS: BP 146/84
--- NOTE | 2016-07-03 08:51 | PDOC ---
PROGRESS NOTES Subjective Subjective feels better but legs weak. lab reviewed. await for insurance and [facility] approva to transfer to [facility] today. Objective Objective Vital Signs Date Time Temp Pulse Resp B/P Pulse Ox O2 Delivery O2 Flow Rate FiO2 07/03/16 07:45 97.5 56 18 146/84 97 Room Air 97.5 Intake and Output 07/03/16 07:00 Intake Total 1120 ml Balance 1120 ml Intake Oral 1120 ml # Voids 3 Physical Exam Abdomen: Soft Heart: Regular rate, Normal S1, Normal S2 Extremities: No edema General: Alert HEENT: Atraumatic Lungs: Clear to auscultation MUSCULOSKELETAL: Other (legs are weak. weak left dorsiflexors) Neuro: Normal speech Psych/Mental Status: Mental status NL Skin: No rashes Assessment Assessment Problems Medical Problems: Influenza type A. 2. Pseudo exacerbation of multiple sclerosis secondary to influenza type A. 3. Hypertension. 4. Hypothyroidism. 5. Mobility and self-care deficits secondary to influenza A and pseudo exacerbation of multiple sclerosis. hypokalemia resolved Klebsiella uti neurogenic bladder (1) Exacerbation of multiple sclerosis Status: Acute (2) Influenza A Status: Acute Plan Plan of Care finished tamiflu] continue vantin PT and OT transfer to [facility] today if approved by insurance and [facility] Comment Review of Relevant I have reviewed the following items bridgette (where applicable) has been applied. Labs Laboratory Tests Test 07/03/16 04:51 White Blood Count 7.3x10^3/uL (4.0-11.0) Red Blood Count 4.50x10^6/uL (3.50-5.40) Hemoglobin 13.2g/dL (12.0-15.5) Hematocrit 37.8% (36.0-47.0) Mean Corpuscular Volume 84fL (79-100) Mean Corpuscular Hemoglobin 29pg (25-35) Mean Corpuscular Hemoglobin Concent 35g/dL (31-37) Red Cell Distribution Width 13.7% (11.5-14.5) Platelet Count 259x10^3/uL (140-400) Neutrophils (%) (Auto) 54% (31-73) Lymphocytes (%) (Auto) 29% (24-48) Monocytes (%) (Auto) 9% (0-9) Eosinophils (%) (Auto) 8% (0-3) Basophils (%) (Auto) 1% (0-3) Neutrophils # (Auto) 3.9x10^3uL (1.8-7.7) Lymphocytes # (Auto) 2.1x10^3/uL (1.0-4.8) Monocytes # (Auto) 0.6x10^3/uL (0.0-1.1) Eosinophils # (Auto) 0.6x10^3/uL (0.0-0.7) Basophils # (Auto) 0.0x10^3/uL (0.0-0.2) Sodium Level 143mmol/L (136-145) Potassium Level 3.9mmol/L (3.5-5.1) Chloride Level 104mmol/L (98-107) Carbon Dioxide Level 28mmol/L (21-32) Anion Gap 11 (6-14) Blood Urea Nitrogen 18mg/dL (7-20) Creatinine 0.8mg/dL (0.6-1.0) Estimated GFR (Cockcroft-Gault) 91.9 Glucose Level 100mg/dL (70-99) Calcium Level 9.3mg/dL (8.5-10.1) Magnesium Level 1.9mg/dL (1.8-2.4) Laboratory Tests Test 07/03/16 04:51 White Blood Count 7.3x10^3/uL (4.0-11.0) Red Blood Count 4.50x10^6/uL (3.50-5.40) Hemoglobin 13.2g/dL (12.0-15.5) Hematocrit 37.8% (36.0-47.0) Mean Corpuscular Volume 84fL (79-100) Mean Corpuscular Hemoglobin 29pg (25-35) Mean Corpuscular Hemoglobin Concent 35g/dL (31-37) Red Cell Distribution Width 13.7% (11.5-14.5) Platelet Count 259x10^3/uL (140-400) Neutrophils (%) (Auto) 54% (31-73) Lymphocytes (%) (Auto) 29% (24-48) Monocytes (%) (Auto) 9% (0-9) Eosinophils (%) (Auto) 8% (0-3) Basophils (%) (Auto) 1% (0-3) Neutrophils # (Auto) 3.9x10^3uL (1.8-7.7) Lymphocytes # (Auto) 2.1x10^3/uL (1.0-4.8) Monocytes # (Auto) 0.6x10^3/uL (0.0-1.1) Eosinophils # (Auto) 0.6x10^3/uL (0.0-0.7) Basophils # (Auto) 0.0x10^3/uL (0.0-0.2) Sodium Level 143mmol/L (136-145) Potassium Level 3.9mmol/L (3.5-5.1) Chloride Level 104mmol/L (98-107) Carbon Dioxide Level 28mmol/L (21-32) Anion Gap 11 (6-14) Blood Urea Nitrogen 18mg/dL (7-20) Creatinine 0.8mg/dL (0.6-1.0) Estimated GFR (Cockcroft-Gault) 91.9 Glucose Level 100mg/dL (70-99) Calcium Level 9.3mg/dL (8.5-10.1) Magnesium Level 1.9mg/dL (1.8-2.4) Microbiology 06/29/16 Urine Culture - Final, Complete 06/29/16 Urine Culture Result 1 (WILLAM) - Final, Complete 06/29/16 Antimicrobic Susceptibility - Final, Complete Medications Current Medications Sodium Chloride (Iv Sodium Chloride 0.9% 1000ml Bag) 1,000 ml @ 1,000 mls/hr 1X ONCE IV Last administered on 06/28/16 13:02; Start 06/28/16 at 12:15; Stop 06/28/16 at 13:14; Status DC Ketorolac Tromethamine (Toradol) 30 mg 1X ONCE IV Last administered on 13:03; Start 06/28/16 at 12:15; Stop 06/28/16 at 12:16; Status DC Oseltamivir Phosphate (Tamiflu) 75 mg 1X STAT PO Last administered on 13:05; Start 06/28/16 at 12:45; Stop 06/28/16 at 12:48; Status DC Ondansetron HCl 4 mg 4 mg PRN Q8HRS PRN IV NAUSEA/VOMITING; Start 06/28/16 at 13:00; Stop 06/29/16 at 13:10; Status DC Sodium Chloride (Iv Sodium Chloride 0.9% 1000ml Bag) 1,000 ml @ 125 mls/hr Q8H IV ; Start 06/28/16 at 13:30; Stop 06/28/16 at 17:43; Status DC Oseltamivir Phosphate 75 mg 75 mg BID PO Last administered on 07/02/16 21:04; Start 06/28/16 at 21:00; Stop 07/03/16 at 20:59 Potassium Chloride/Dextrose/ Sod Cl (KCl 20 Meq In D5W-1/2 NS) 1,000 ml @ 40 mls/hr Q24H IV Last administered on 07/02/16 02:36; Start 06/28/16 at 19:00; Stop 07/02/16 at 09:48; Status DC Enoxaparin Sodium (Lovenox 40mg Syringe) 40 mg Q24H SQ Last administered on 21:04; Start 06/28/16 at 21:00 Acetaminophen (Tylenol) 650 mg PRN Q4HRS PRN PO MILD PAIN / TEMP Last administered on 06/29/16 08:47; Start 06/28/16 at 17:45 Aspirin (Emiliano Aspirin) 325 mg DAILYWBKFT PO Last administered on 07/02/16 07: 39; Start 06/29/16 at 08:00 Baclofen (Lioresal) 10 mg BID PO ; Start 06/28/16 at 21:00; Stop 06/28/16 at 21: 00; Status DC Baclofen (Lioresal) 20 mg DAILY16 PO ; Start 06/29/16 at 16:00; Stop 06/29/16 at 16:00; Status DC Hydrochlorothiazide (Hydrodiuril) 25 mg DAILY PO Last administered on 08:42; Start 06/29/16 at 09:00 Levothyroxine Sodium (Synthroid) 100 mcg DAILY07 PO Last administered on 06:30; Start 06/29/16 at 07:00 Losartan Potassium (Cozaar) 50 mg DAILY PO Last administered on 07/02/16 08:42 ; Start 06/29/16 at 09:00 Multivitamins/ Calcium (Thera M Plus) 1 tab DAILY PO Last administered on 08:41; Start 06/29/16 at 09:00 Oxybutynin Chloride (Ditropan) 5 mg [id number] PO Last administered on 07/02/16 08 :42; Start 06/28/16 at 21:00; Stop 07/02/16 at 09:48; Status DC Potassium Chloride (Klor-Con) 20 meq DAILYWBKFT PO Last administered on 07:39; Start 06/29/16 at 08:00 Tizanidine HCl (Zanaflex) 4 mg QHS PO ; Start 06/28/16 at 21:00; Stop 06/28/16 at 21:00; Status DC Tizanidine HCl (Zanaflex) 2 mg BID PO Last administered on 06/30/16 09:29; Start 06/28/16 at 21:00; Stop 06/30/16 at 21:26; Status DC Ondansetron HCl (Zofran) 4 mg PRN Q6HRS PRN IV NAUSEA/VOMITING; Start 06/28/16 at 17:45 Baclofen (Lioresal) 10 mg DAILY08 PO Last administered on 07/02/16 07:39; Start 06/29/16 at 08:00 Baclofen (Lioresal) 20 mg BID@14,21 PO Last administered on 07/02/16 21:04; Start 06/29/16 at 21:00 Tizanidine HCl (Zanaflex) 4 mg QHS PO Last administered on 07/02/16 21:04; Start 06/28/16 at 21:00 Clonidine HCl (Catapres) 0.1 mg PRN Q6HRS PRN PO HYPERTENSION, SEE COMMENTS; Start 06/28/16 at 18:00 Potassium Chloride (KCl Oral Soln) 40 meq 1X ONCE PO ; Start 06/29/16 at 09:00 ; Stop 06/29/16 at 14:19; Status DC Potassium Chloride (KCl Oral Soln) 40 meq 1X ONCE PO ; Start 06/29/16 at 14:15 ; Stop 06/29/16 at 14:22; Status DC Potassium Chloride (KCl Oral Soln) 40 meq ONCE ONCE PEG Last administered on 14:52; Start 06/29/16 at 14:30; Stop 06/29/16 at 14:32; Status DC Potassium Chloride (KCl Oral Soln) 40 meq 1X ONCE PEG ; Start 06/29/16 at 14:30 ; Stop 06/29/16 at 14:31; Status UNV Bisacodyl (Dulcolax Tab) 10 mg PRN DAILY PRN PO CONSTIPATION; Start 06/30/16 at 10:45 Senna/Docusate Sodium (Senna Plus) 1 tab PRN BID PRN PO CONSTIPATION; Start at 10:45 Tizanidine HCl (Zanaflex) 2 mg [id number] PO Last administered on 07/02/16 15:36; Start 07/01/16 at 09:00 Cefpodoxime Proxetil (Vantin) 100 mg BID PO Last administered on 07/02/16 21: 04; Start 07/01/16 at 11:00 Ascorbic Acid (Vitamin C) 500 mg DAILY PO Last administered on 07/02/16 08:41 ; Start 07/01/16 at 12:00 Active Scripts Active Reported Tizanidine Hcl 4 Mg Tablet 4 Mg PO DAILYBFRSUP Tizanidine Hcl 4 Mg Tablet 2 Mg PO DAILY07 Tizanidine Hcl 4 Mg Tablet 1 Tab PO QHS Multivitamins (Multivitamin) 1 Each Tablet 1 Each PO DAILY Hydrochlorothiazide Tablet (Hydrochlorothiazide) 12.5 Mg Tablet 1 Tab PO DAILY Baclofen 20 Mg Tablet 20 Mg PO BIDACLD Baclofen 10 Mg Tablet 10 Mg PO DAILY07 Losartan Potassium 50 Mg Tablet 50 Mg PO DAILY Aspirin 325 Mg Tablet 1 Tab PO DAILY [multivitamin] [tizanidine] [losartan] [baclofen] [hydrochlorothiazide] Vitals/I & O Vital Sign - Last 24 Hours 07/02/16 07/02/16 07/02/16 07/02/16 11:00 15:00 19:00 20:29 Temp 97.7 98.1 97.9 97.7 98.1 97.9 Pulse 65 65 60 Resp 17 B/P 130/86 145/87 111/72 Pulse Ox 97 97 96 O2 Delivery Room Air Room Air Room Air 07/02/16 07/03/16 07/03/16 22:50 03:29 07:45 Temp 98.3 97.9 97.5 98.3 97.9 97.5 Pulse 82 58 56 Resp 18 18 18 B/P 118/74 133/82 146/84 Pulse Ox 92 94 97 O2 Delivery Room Air Room Air Room Air Intake and Output 07/02/16 07/02/16 07/03/16 15:00 23:00 07:00 Intake Total 240 ml 480 ml 400 ml Balance 240 ml 480 ml 400 ml NOAH BAUGH MD Jul 03, 2016 08:51
[2016-07-03] MEDS: tiZANidine 4 MG TABLET. PO SCH ×3 (09:00→21:18)
[2016-07-03] MEDS: BACLOFEN 10 MG TABLET PO SCH ×3 (09:14→21:17)
[2016-07-03] MEDS: MULTIVITAMIN with MINERAL TABLET. PO SCH (09:15)
[2016-07-03] MEDS: POTASSIUM CHLORIDE 20 MEQ TABLET.ER. PO SCH (09:15)
[2016-07-03] MEDS: ASPIRIN 325 MG TABLET PO SCH (09:15)
[2016-07-03] MEDS: OSELTAMIVIR 75 MG CAPSULE PO SCH (09:15)
[2016-07-03] MEDS: HYDROCHLOROTHIAZIDE 25 MG TABLET PO SCH (09:15)
[2016-07-03] MEDS: ASCORBIC ACID 500 MG TABLET PO SCH (09:15)
[2016-07-03] MEDS: CEFPODOXIME PROXETIL 100 MG TABLET PO SCH ×2 (09:16→21:18)
[2016-07-03] MEDS: LOSARTAN POTASSIUM 50 MG TABLET. PO SCH (09:16)
--- NOTE | 2016-07-03 10:19 | PDOC ---
PROGRESS NOTES Subjective Subjective She is comfortable now. Objective Objective Vital Signs Date Time Temp Pulse Resp B/P Pulse Ox O2 Delivery O2 Flow Rate FiO2 07/03/16 09:16 56 146/84 07/03/16 07:45 97.5 18 97 Room Air 97.5 Intake and Output 07/03/16 07:00 Intake Total 1120 ml Balance 1120 ml Intake Oral 1120 ml # Voids 3 Physical Exam Physical Exam She is supine in bed,alert and agrees to go to in patient rehab unit. Assessment Assessment Problems Medical Problems: (1) Exacerbation of multiple sclerosis Status: Acute (2) Influenza A Status: Acute Plan Plan of Care To inpatient rehab when arrangements are completed. Comment Review of Relevant I have reviewed the following items bridgette (where applicable) has been applied. Labs Laboratory Tests Test 07/03/16 04:51 White Blood Count 7.3x10^3/uL (4.0-11.0) Red Blood Count 4.50x10^6/uL (3.50-5.40) Hemoglobin 13.2g/dL (12.0-15.5) Hematocrit 37.8% (36.0-47.0) Mean Corpuscular Volume 84fL (79-100) Mean Corpuscular Hemoglobin 29pg (25-35) Mean Corpuscular Hemoglobin Concent 35g/dL (31-37) Red Cell Distribution Width 13.7% (11.5-14.5) Platelet Count 259x10^3/uL (140-400) Neutrophils (%) (Auto) 54% (31-73) Lymphocytes (%) (Auto) 29% (24-48) Monocytes (%) (Auto) 9% (0-9) Eosinophils (%) (Auto) 8% (0-3) Basophils (%) (Auto) 1% (0-3) Neutrophils # (Auto) 3.9x10^3uL (1.8-7.7) Lymphocytes # (Auto) 2.1x10^3/uL (1.0-4.8) Monocytes # (Auto) 0.6x10^3/uL (0.0-1.1) Eosinophils # (Auto) 0.6x10^3/uL (0.0-0.7) Basophils # (Auto) 0.0x10^3/uL (0.0-0.2) Sodium Level 143mmol/L (136-145) Potassium Level 3.9mmol/L (3.5-5.1) Chloride Level 104mmol/L (98-107) Carbon Dioxide Level 28mmol/L (21-32) Anion Gap 11 (6-14) Blood Urea Nitrogen 18mg/dL (7-20) Creatinine 0.8mg/dL (0.6-1.0) Estimated GFR (Cockcroft-Gault) 91.9 Glucose Level 100mg/dL (70-99) Calcium Level 9.3mg/dL (8.5-10.1) Magnesium Level 1.9mg/dL (1.8-2.4) Laboratory Tests Test 07/03/16 04:51 White Blood Count 7.3x10^3/uL (4.0-11.0) Red Blood Count 4.50x10^6/uL (3.50-5.40) Hemoglobin 13.2g/dL (12.0-15.5) Hematocrit 37.8% (36.0-47.0) Mean Corpuscular Volume 84fL (79-100) Mean Corpuscular Hemoglobin 29pg (25-35) Mean Corpuscular Hemoglobin Concent 35g/dL (31-37) Red Cell Distribution Width 13.7% (11.5-14.5) Platelet Count 259x10^3/uL (140-400) Neutrophils (%) (Auto) 54% (31-73) Lymphocytes (%) (Auto) 29% (24-48) Monocytes (%) (Auto) 9% (0-9) Eosinophils (%) (Auto) 8% (0-3) Basophils (%) (Auto) 1% (0-3) Neutrophils # (Auto) 3.9x10^3uL (1.8-7.7) Lymphocytes # (Auto) 2.1x10^3/uL (1.0-4.8) Monocytes # (Auto) 0.6x10^3/uL (0.0-1.1) Eosinophils # (Auto) 0.6x10^3/uL (0.0-0.7) Basophils # (Auto) 0.0x10^3/uL (0.0-0.2) Sodium Level 143mmol/L (136-145) Potassium Level 3.9mmol/L (3.5-5.1) Chloride Level 104mmol/L (98-107) Carbon Dioxide Level 28mmol/L (21-32) Anion Gap 11 (6-14) Blood Urea Nitrogen 18mg/dL (7-20) Creatinine 0.8mg/dL (0.6-1.0) Estimated GFR (Cockcroft-Gault) 91.9 Glucose Level 100mg/dL (70-99) Calcium Level 9.3mg/dL (8.5-10.1) Magnesium Level 1.9mg/dL (1.8-2.4) Microbiology 06/29/16 Urine Culture - Final, Complete 06/29/16 Urine Culture Result 1 (WILLAM) - Final, Complete 06/29/16 Antimicrobic Susceptibility - Final, Complete Medications Current Medications Sodium Chloride (Iv Sodium Chloride 0.9% 1000ml Bag) 1,000 ml @ 1,000 mls/hr 1X ONCE IV Last administered on 06/28/16 13:02; Start 06/28/16 at 12:15; Stop 06/28/16 at 13:14; Status DC Ketorolac Tromethamine (Toradol) 30 mg 1X ONCE IV Last administered on 13:03; Start 06/28/16 at 12:15; Stop 06/28/16 at 12:16; Status DC Oseltamivir Phosphate (Tamiflu) 75 mg 1X STAT PO Last administered on 13:05; Start 06/28/16 at 12:45; Stop 06/28/16 at 12:48; Status DC Ondansetron HCl 4 mg 4 mg PRN Q8HRS PRN IV NAUSEA/VOMITING; Start 06/28/16 at 13:00; Stop 06/29/16 at 13:10; Status DC Sodium Chloride (Iv Sodium Chloride 0.9% 1000ml Bag) 1,000 ml @ 125 mls/hr Q8H IV ; Start 06/28/16 at 13:30; Stop 06/28/16 at 17:43; Status DC Oseltamivir Phosphate 75 mg 75 mg BID PO Last administered on 07/03/16 09:15; Start 06/28/16 at 21:00; Stop 07/03/16 at 20:59 Potassium Chloride/Dextrose/ Sod Cl (KCl 20 Meq In D5W-1/2 NS) 1,000 ml @ 40 mls/hr Q24H IV Last administered on 07/02/16 02:36; Start 06/28/16 at 19:00; Stop 07/02/16 at 09:48; Status DC Enoxaparin Sodium (Lovenox 40mg Syringe) 40 mg Q24H SQ Last administered on 21:04; Start 06/28/16 at 21:00 Acetaminophen (Tylenol) 650 mg PRN Q4HRS PRN PO MILD PAIN / TEMP Last administered on 06/29/16 08:47; Start 06/28/16 at 17:45 Aspirin (Emiliano Aspirin) 325 mg DAILYWBKFT PO Last administered on 07/03/16 09: 15; Start 06/29/16 at 08:00 Baclofen (Lioresal) 10 mg BID PO ; Start 06/28/16 at 21:00; Stop 06/28/16 at 21: 00; Status DC Baclofen (Lioresal) 20 mg DAILY16 PO ; Start 06/29/16 at 16:00; Stop 06/29/16 at 16:00; Status DC Hydrochlorothiazide (Hydrodiuril) 25 mg DAILY PO Last administered on 09:15; Start 06/29/16 at 09:00 Levothyroxine Sodium (Synthroid) 100 mcg DAILY07 PO Last administered on 06:30; Start 06/29/16 at 07:00 Losartan Potassium (Cozaar) 50 mg DAILY PO Last administered on 07/03/16 09:16 ; Start 06/29/16 at 09:00 Multivitamins/ Calcium (Thera M Plus) 1 tab DAILY PO Last administered on 09:15; Start 06/29/16 at 09:00 Oxybutynin Chloride (Ditropan) 5 mg [id number] PO Last administered on 07/02/16 08 :42; Start 06/28/16 at 21:00; Stop 07/02/16 at 09:48; Status DC Potassium Chloride (Klor-Con) 20 meq DAILYWBKFT PO Last administered on 09:15; Start 06/29/16 at 08:00 Tizanidine HCl (Zanaflex) 4 mg QHS PO ; Start 06/28/16 at 21:00; Stop 06/28/16 at 21:00; Status DC Tizanidine HCl (Zanaflex) 2 mg BID PO Last administered on 06/30/16 09:29; Start 06/28/16 at 21:00; Stop 06/30/16 at 21:26; Status DC Ondansetron HCl (Zofran) 4 mg PRN Q6HRS PRN IV NAUSEA/VOMITING; Start 06/28/16 at 17:45 Baclofen (Lioresal) 10 mg DAILY08 PO Last administered on 07/03/16 09:14; Start 06/29/16 at 08:00 Baclofen (Lioresal) 20 mg BID@, PO Last administered on 07/02/16 21:04; Start 06/29/16 at 21:00 Tizanidine HCl (Zanaflex) 4 mg QHS PO Last administered on 07/02/16 21:04; Start 06/28/16 at 21:00 Clonidine HCl (Catapres) 0.1 mg PRN Q6HRS PRN PO HYPERTENSION, SEE COMMENTS; Start 06/28/16 at 18:00 Potassium Chloride (KCl Oral Soln) 40 meq 1X ONCE PO ; Start 06/29/16 at 09:00 ; Stop 06/29/16 at 14:19; Status DC Potassium Chloride (KCl Oral Soln) 40 meq 1X ONCE PO ; Start 06/29/16 at 14:15 ; Stop 06/29/16 at 14:22; Status DC Potassium Chloride (KCl Oral Soln) 40 meq ONCE ONCE PEG Last administered on 14:52; Start 06/29/16 at 14:30; Stop 06/29/16 at 14:32; Status DC Potassium Chloride (KCl Oral Soln) 40 meq 1X ONCE PEG ; Start 06/29/16 at 14:30 ; Stop 06/29/16 at 14:31; Status UNV Bisacodyl (Dulcolax Tab) 10 mg PRN DAILY PRN PO CONSTIPATION; Start 06/30/16 at 10:45 Senna/Docusate Sodium (Senna Plus) 1 tab PRN BID PRN PO CONSTIPATION; Start at 10:45 Tizanidine HCl (Zanaflex) 2 mg [id number] PO Last administered on 07/03/16 09:00; Start 07/01/16 at 09:00 Cefpodoxime Proxetil (Vantin) 100 mg BID PO Last administered on 07/03/16 09: 16; Start 07/01/16 at 11:00 Ascorbic Acid (Vitamin C) 500 mg DAILY PO Last administered on 07/03/16 09:15 ; Start 07/01/16 at 12:00 Active Scripts Active Reported Tizanidine Hcl 4 Mg Tablet 4 Mg PO DAILYBFRSUP Tizanidine Hcl 4 Mg Tablet 2 Mg PO DAILY07 Tizanidine Hcl 4 Mg Tablet 1 Tab PO QHS Multivitamins (Multivitamin) 1 Each Tablet 1 Each PO DAILY Hydrochlorothiazide Tablet (Hydrochlorothiazide) 12.5 Mg Tablet 1 Tab PO DAILY Baclofen 20 Mg Tablet 20 Mg PO BIDACLD Baclofen 10 Mg Tablet 10 Mg PO DAILY07 Losartan Potassium 50 Mg Tablet 50 Mg PO DAILY Aspirin 325 Mg Tablet 1 Tab PO DAILY [multivitamin] [tizanidine] [losartan] [baclofen] [hydrochlorothiazide] Vitals/I & O Vital Sign - Last 24 Hours 07/02/16 07/02/16 07/02/16 07/02/16 11:00 15:00 19:00 20:29 Temp 97.7 98.1 97.9 97.7 98.1 97.9 Pulse 65 65 60 Resp B/P 130/86 145/87 111/72 Pulse Ox 97 97 96 O2 Delivery Room Air Room Air Room Air 07/02/16 07/03/16 07/03/16 07/03/16 22:50 03:29 07:45 09:16 Temp 98.3 97.9 97.5 98.3 97.9 97.5 Pulse 82 58 56 56 Resp B/P 118/74 133/82 146/84 146/84 Pulse Ox 92 94 97 O2 Delivery Room Air Room Air Room Air Intake and Output 07/02/16 07/02/16 07/03/16 15:00 23:00 07:00 Intake Total 240 ml 480 ml 400 ml Balance 240 ml 480 ml 400 ml KIMBERLY KAY MD Jul 03, 2016 10:19
[2016-07-03 11:06] VITALS: BP 132/85
[2016-07-03 15:10] VITALS: BP 137/80
--- NOTE | 2016-07-03 15:27 | PDOC ---
PROGRESS NOTES Assessment Assessment IMPRESSION: Influenza A MS Chronic left LE weakness. Degenerative L-spine joint and disc diseases. RECOMMENDATIONS/PLAN: She has been treated with baclofen. Continue Medical treatment. OT/PT. SUBJECTIVE: Feeling better. OBJECTIVE: No acute motor or sensory deficits. PAST MEDICAL AND SURGICAL HISTORY: Please see H&P ALLERGY: NKDA MEDICATIONS: Refer to MAR REVIEW OF SYSTEMS: Constitutional: No malnutrition, weight loss, cachexia. Head: No traumatic brain or head injury. Skin: No edema, or rash. Ear: No infection, tinnitus. Eyes: No vision loss, or diplopia. Nose: No bleeding or purulent discharges. Hearing: No hearing decrease. Neck: No recent injury. Cardiac: No GA, arrhythmia Pulmonary: No COPD. GI: No GI Ulcer, GI bleeding Urinary/genital: UTI. Endocrine: [id number]. Skeletomuscular: No muscular atrophy, deformity. Neurological: see HP. Psychiatric: Denies drug use/abuse. Otherwise, not [id number] review of systems. PHYSICAL EXAMINATION: General appearance in no acute distress. HEENT: Normocephalic and nontraumatic. Eyes, nose, ears, and throat are unremarkable. Hearing decrease. Neck is supple. No lymphadenopathy. No bruits are heard over the carotid artery. No Crepitus. Cardiovascular: S1, S2, regular rate and rhythm. Pulmonary: Clear to auscultation bilaterally. Abdomen: Bowel sounds are positive. Abdomen is soft, nontender, and nondistended. Extremities: No rash, lesions, or edema. No restriction of range of motion NEUROLOGICAL EXAMINATION: Awake. sitting in chair. Oriented to time, place and person. PERRL. EOMI. CN: no focal findings. Muscle tone: fluctuated. Muscle strength: right side and left UE 5-, left LE 4 DTR: 2 Plantar reflex: Flexor response bilaterally Gait: not examined in chair. Sensory exam: no acute abnormal findings. No obvious cerebellar signs elicited. F-T-N test fine. Objective Objective Vital Signs Date Time Temp Pulse Resp B/P Pulse Ox O2 Delivery O2 Flow Rate FiO2 07/03/16 15:10 97.8 63 16 137/80 93 Room Air 97.8 Intake and Output 07/03/16 07:00 Intake Total 1120 ml Balance 1120 ml Intake Oral 1120 ml # Voids 3 Vitals Signs Vitals VS - Last 72 Hours, by Label Date Time Temp Pulse Resp B/P Pulse Ox O2 Delivery O2 Flow Rate FiO2 07/03/16 15:10 97.8 63 16 137/80 93 Room Air 97.8 07/03/16 11:06 97.3 61 18 132/85 95 Room Air 97.3 07/03/16 09:16 56 146/84 07/03/16 07:45 97.5 56 18 146/84 97 Room Air 97.5 07/03/16 03:29 97.9 58 18 133/82 94 Room Air 97.9 07/02/16 22:50 98.3 82 18 118/74 92 Room Air 98.3 07/02/16 20:29 Room Air 07/02/16 19:00 97.9 60 17 111/72 96 Room Air 97.9 07/02/16 15:00 98.1 65 20 145/87 97 98.1 07/02/16 11:00 97.7 65 22 130/86 97 Room Air 97.7 07/02/16 08:42 63 150/90 07/02/16 07:00 98.2 63 22 150/90 97 Room Air 98.2 Laboratory Laboratory Laboratory Tests Test 07/03/16 04:51 White Blood Count 7.3x10^3/uL (4.0-11.0) Red Blood Count 4.50x10^6/uL (3.50-5.40) Hemoglobin 13.2g/dL (12.0-15.5) Hematocrit 37.8% (36.0-47.0) Mean Corpuscular Volume 84fL (79-100) Mean Corpuscular Hemoglobin 29pg (25-35) Mean Corpuscular Hemoglobin Concent 35g/dL (31-37) Red Cell Distribution Width 13.7% (11.5-14.5) Platelet Count 259x10^3/uL (140-400) Neutrophils (%) (Auto) 54% (31-73) Lymphocytes (%) (Auto) 29% (24-48) Monocytes (%) (Auto) 9% (0-9) Eosinophils (%) (Auto) 8% (0-3) Basophils (%) (Auto) 1% (0-3) Neutrophils # (Auto) 3.9x10^3uL (1.8-7.7) Lymphocytes # (Auto) 2.1x10^3/uL (1.0-4.8) Monocytes # (Auto) 0.6x10^3/uL (0.0-1.1) Eosinophils # (Auto) 0.6x10^3/uL (0.0-0.7) Basophils # (Auto) 0.0x10^3/uL (0.0-0.2) Sodium Level 143mmol/L (136-145) Potassium Level 3.9mmol/L (3.5-5.1) Chloride Level 104mmol/L (98-107) Carbon Dioxide Level 28mmol/L (21-32) Anion Gap 11 (6-14) Blood Urea Nitrogen 18mg/dL (7-20) Creatinine 0.8mg/dL (0.6-1.0) Estimated GFR (Cockcroft-Gault) 91.9 Glucose Level 100mg/dL (70-99) Calcium Level 9.3mg/dL (8.5-10.1) Magnesium Level 1.9mg/dL (1.8-2.4) Microbiology 06/29/16 Urine Culture - Final, Complete 06/29/16 Urine Culture Result 1 (WILLAM) - Final, Complete 06/29/16 Antimicrobic Susceptibility - Final, Complete Comment Review of Relevant I have reviewed the following items bridgette (where applicable) has been applied. AKIN JIMENEZ MD Jul 03, 2016 15:27
[2016-07-03 19:00] VITALS: BP 118/74
[2016-07-03] MEDS: ENOXAPARIN 40 MG/0.4 ML DISP.SYRIN. SQ SCH (21:17)
[2016-07-03 23:40] VITALS: BP 112/72
[2016-07-04 03:41] VITALS: BP 128/77
[2016-07-04 07:15] VITALS: BP 146/95
[2016-07-04] MEDS: POTASSIUM CHLORIDE 20 MEQ TABLET.ER. PO SCH (08:00)
[2016-07-04] MEDS: ASPIRIN 325 MG TABLET PO SCH (08:00)
[2016-07-04] MEDS: BACLOFEN 10 MG TABLET PO SCH ×2 (08:00→14:38)
[2016-07-04] MEDS: LEVOTHYROXINE 100 MCG TABLET PO SCH (08:30)
[2016-07-04] MEDS: tiZANidine 4 MG TABLET. PO SCH ×2 (09:00→17:23)
[2016-07-04] MEDS: CEFPODOXIME PROXETIL 100 MG TABLET PO SCH (09:00)
[2016-07-04] MEDS: MULTIVITAMIN with MINERAL TABLET. PO SCH (09:00)
[2016-07-04] MEDS: ASCORBIC ACID 500 MG TABLET PO SCH (09:00)
[2016-07-04] MEDS: LOSARTAN POTASSIUM 50 MG TABLET. PO SCH (09:00)
[2016-07-04] MEDS: HYDROCHLOROTHIAZIDE 25 MG TABLET PO SCH (09:00)
--- NOTE | 2016-07-04 09:17 | PDOC ---
PROGRESS NOTES Subjective Subjective feels better.. has leg weakness. accepted at [facility] and awaiting insurance approval. Objective Objective Vital Signs Date Time Temp Pulse Resp B/P Pulse Ox O2 Delivery O2 Flow Rate FiO2 07/04/16 07:15 98.2 65 18 146/95 97 Room Air 98.2 Intake and Output 07/04/16 07:00 Intake Total 1390 ml Output Total 1 ml Balance 1389 ml Intake Oral 1390 ml Stool Total 1 ml # Voids 9 # Bowel Movements 2 Physical Exam Abdomen: Soft Heart: Regular rate, Normal S1, Normal S2 Extremities: No edema General: Alert HEENT: Atraumatic Lungs: Clear to auscultation MUSCULOSKELETAL: Other (weakness both legs with weak left foot dorsiflexor) Neuro: Normal speech Psych/Mental Status: Mental status NL Skin: No rashes Assessment Assessment Problems Medical Problems: Influenza type A. 2. Pseudo exacerbation of multiple sclerosis secondary to influenza type A. 3. Hypertension. 4. Hypothyroidism. 5. Mobility and self-care deficits secondary to influenza A and pseudo exacerbation of multiple sclerosis. hypokalemia resolved Klebsiella uti neurogenic bladder (1) Exacerbation of multiple sclerosis Status: Acute (2) Influenza A Status: Acute Plan Plan of Care PT and OT continue vantin continue baclofen and tizanidine continue lovenox for dvt prophylaxis transfer to [facility] when insurance approves Comment Review of Relevant I have reviewed the following items bridgette (where applicable) has been applied. Labs Laboratory Tests Test 07/03/16 04:51 White Blood Count 7.3x10^3/uL (4.0-11.0) Red Blood Count 4.50x10^6/uL (3.50-5.40) Hemoglobin 13.2g/dL (12.0-15.5) Hematocrit 37.8% (36.0-47.0) Mean Corpuscular Volume 84fL (79-100) Mean Corpuscular Hemoglobin 29pg (25-35) Mean Corpuscular Hemoglobin Concent 35g/dL (31-37) Red Cell Distribution Width 13.7% (11.5-14.5) Platelet Count 259x10^3/uL (140-400) Neutrophils (%) (Auto) 54% (31-73) Lymphocytes (%) (Auto) 29% (24-48) Monocytes (%) (Auto) 9% (0-9) Eosinophils (%) (Auto) 8% (0-3) Basophils (%) (Auto) 1% (0-3) Neutrophils # (Auto) 3.9x10^3uL (1.8-7.7) Lymphocytes # (Auto) 2.1x10^3/uL (1.0-4.8) Monocytes # (Auto) 0.6x10^3/uL (0.0-1.1) Eosinophils # (Auto) 0.6x10^3/uL (0.0-0.7) Basophils # (Auto) 0.0x10^3/uL (0.0-0.2) Sodium Level 143mmol/L (136-145) Potassium Level 3.9mmol/L (3.5-5.1) Chloride Level 104mmol/L (98-107) Carbon Dioxide Level 28mmol/L (21-32) Anion Gap 11 (6-14) Blood Urea Nitrogen 18mg/dL (7-20) Creatinine 0.8mg/dL (0.6-1.0) Estimated GFR (Cockcroft-Gault) 91.9 Glucose Level 100mg/dL (70-99) Calcium Level 9.3mg/dL (8.5-10.1) Magnesium Level 1.9mg/dL (1.8-2.4) Microbiology 06/29/16 Urine Culture - Final, Complete 06/29/16 Urine Culture Result 1 (WILLAM) - Final, Complete 06/29/16 Antimicrobic Susceptibility - Final, Complete Medications Current Medications Sodium Chloride (Iv Sodium Chloride 0.9% 1000ml Bag) 1,000 ml @ 1,000 mls/hr 1X ONCE IV Last administered on 06/28/16 13:02; Start 06/28/16 at 12:15; Stop 06/28/16 at 13:14; Status DC Ketorolac Tromethamine (Toradol) 30 mg 1X ONCE IV Last administered on 13:03; Start 06/28/16 at 12:15; Stop 06/28/16 at 12:16; Status DC Oseltamivir Phosphate (Tamiflu) 75 mg 1X STAT PO Last administered on 13:05; Start 06/28/16 at 12:45; Stop 06/28/16 at 12:48; Status DC Ondansetron HCl 4 mg 4 mg PRN Q8HRS PRN IV NAUSEA/VOMITING; Start 06/28/16 at 13:00; Stop 06/29/16 at 13:10; Status DC Sodium Chloride (Iv Sodium Chloride 0.9% 1000ml Bag) 1,000 ml @ 125 mls/hr Q8H IV ; Start 06/28/16 at 13:30; Stop 06/28/16 at 17:43; Status DC Oseltamivir Phosphate 75 mg 75 mg BID PO Last administered on 07/03/16 09:15; Start 06/28/16 at 21:00; Stop 07/03/16 at 20:59; Status DC Potassium Chloride/Dextrose/ Sod Cl (KCl 20 Meq In D5W-1/2 NS) 1,000 ml @ 40 mls/hr Q24H IV Last administered on 07/02/16 02:36; Start 06/28/16 at 19:00; Stop 07/02/16 at 09:48; Status DC Enoxaparin Sodium (Lovenox 40mg Syringe) 40 mg Q24H SQ Last administered on 21:17; Start 06/28/16 at 21:00 Acetaminophen (Tylenol) 650 mg PRN Q4HRS PRN PO MILD PAIN / TEMP Last administered on 06/29/16 08:47; Start 06/28/16 at 17:45 Aspirin (Emiliano Aspirin) 325 mg DAILYWBKFT PO Last administered on 07/03/16 09: 15; Start 06/29/16 at 08:00 Baclofen (Lioresal) 10 mg BID PO ; Start 06/28/16 at 21:00; Stop 06/28/16 at 21: 00; Status DC Baclofen (Lioresal) 20 mg DAILY16 PO ; Start 06/29/16 at 16:00; Stop 06/29/16 at 16:00; Status DC Hydrochlorothiazide (Hydrodiuril) 25 mg DAILY PO Last administered on 09:15; Start 06/29/16 at 09:00 Levothyroxine Sodium (Synthroid) 100 mcg DAILY07 PO Last administered on 06:30; Start 06/29/16 at 07:00 Losartan Potassium (Cozaar) 50 mg DAILY PO Last administered on 07/03/16 09:16 ; Start 06/29/16 at 09:00 Multivitamins/ Calcium (Thera M Plus) 1 tab DAILY PO Last administered on 09:15; Start 06/29/16 at 09:00 Oxybutynin Chloride (Ditropan) 5 mg [id number] PO Last administered on 07/02/16 08 :42; Start 06/28/16 at 21:00; Stop 07/02/16 at 09:48; Status DC Potassium Chloride (Klor-Con) 20 meq DAILYWBKFT PO Last administered on 09:15; Start 06/29/16 at 08:00 Tizanidine HCl (Zanaflex) 4 mg QHS PO ; Start 06/28/16 at 21:00; Stop 06/28/16 at 21:00; Status DC Tizanidine HCl (Zanaflex) 2 mg BID PO Last administered on 06/30/16 09:29; Start 06/28/16 at 21:00; Stop 06/30/16 at 21:26; Status DC Ondansetron HCl (Zofran) 4 mg PRN Q6HRS PRN IV NAUSEA/VOMITING; Start 06/28/16 at 17:45 Baclofen (Lioresal) 10 mg DAILY08 PO Last administered on 07/03/16 09:14; Start 06/29/16 at 08:00 Baclofen (Lioresal) 20 mg BID@14,21 PO Last administered on 07/03/16 21:17; Start 06/29/16 at 21:00 Tizanidine HCl (Zanaflex) 4 mg QHS PO Last administered on 07/03/16 21:18; Start 06/28/16 at 21:00 Clonidine HCl (Catapres) 0.1 mg PRN Q6HRS PRN PO HYPERTENSION, SEE COMMENTS; Start 06/28/16 at 18:00 Potassium Chloride (KCl Oral Soln) 40 meq 1X ONCE PO ; Start 06/29/16 at 09:00 ; Stop 06/29/16 at 14:19; Status DC Potassium Chloride (KCl Oral Soln) 40 meq 1X ONCE PO ; Start 06/29/16 at 14:15 ; Stop 06/29/16 at 14:22; Status DC Potassium Chloride (KCl Oral Soln) 40 meq ONCE ONCE PEG Last administered on 14:52; Start 06/29/16 at 14:30; Stop 06/29/16 at 14:32; Status DC Potassium Chloride (KCl Oral Soln) 40 meq 1X ONCE PEG ; Start 06/29/16 at 14:30 ; Stop 06/29/16 at 14:31; Status UNV Bisacodyl (Dulcolax Tab) 10 mg PRN DAILY PRN PO CONSTIPATION; Start 06/30/16 at 10:45 Senna/Docusate Sodium (Senna Plus) 1 tab PRN BID PRN PO CONSTIPATION; Start at 10:45 Tizanidine HCl (Zanaflex) 2 mg BID94 PO Last administered on 07/03/16 18:15; Start 07/01/16 at 09:00 Cefpodoxime Proxetil (Vantin) 100 mg BID PO Last administered on 07/03/16 21: 18; Start 07/01/16 at 11:00 Ascorbic Acid (Vitamin C) 500 mg DAILY PO Last administered on 07/03/16 09:15 ; Start 07/01/16 at 12:00 Active Scripts Active Reported Tizanidine Hcl 4 Mg Tablet 4 Mg PO DAILYBFRSUP Tizanidine Hcl 4 Mg Tablet 2 Mg PO DAILY07 Tizanidine Hcl 4 Mg Tablet 1 Tab PO QHS Multivitamins (Multivitamin) 1 Each Tablet 1 Each PO DAILY Hydrochlorothiazide Tablet (Hydrochlorothiazide) 12.5 Mg Tablet 1 Tab PO DAILY Baclofen 20 Mg Tablet 20 Mg PO BIDACLD Baclofen 10 Mg Tablet 10 Mg PO DAILY07 Losartan Potassium 50 Mg Tablet 50 Mg PO DAILY Aspirin 325 Mg Tablet 1 Tab PO DAILY [multivitamin] [tizanidine] [losartan] [baclofen] [hydrochlorothiazide] Vitals/I & O Vital Sign - Last 24 Hours 07/03/16 07/03/16 07/03/16 07/03/16 09:16 11:06 15:10 19:00 Temp 97.3 97.8 97.7 97.3 97.8 97.7 Pulse 56 61 63 63 Resp 18 16 20 B/P 146/84 132/85 137/80 118/74 Pulse Ox 95 93 99 O2 Delivery Room Air Room Air Room Air 07/03/16 07/03/16 07/04/16 07/04/16 20:00 23:40 03:41 07:15 Temp 97.9 97.7 98.2 97.9 97.7 98.2 Pulse 67 61 65 Resp 20 20 18 B/P 112/72 128/77 146/95 Pulse Ox 99 97 97 O2 Delivery Room Air Room Air Room Air Room Air Intake and Output 07/03/16 07/03/16 07/04/16 15:00 23:00 07:00 Intake Total 370 ml 720 ml 300 ml Output Total 1 ml Balance 370 ml 719 ml 300 ml NOAH BAUGH MD Jul 04, 2016 09:17
--- NOTE | 2016-07-04 09:58 | PDOC ---
PROGRESS NOTES Subjective Subjective She feels like she is not getting coordinated comprehensive care in [facility] as we are not contacting her neurologist and urologist with her care,just like the care she received while in [place] where she was taken care by a multiple sclerosis center. Objective Objective Vital Signs Date Time Temp Pulse Resp B/P Pulse Ox O2 Delivery O2 Flow Rate FiO2 07/04/16 07:15 98.2 65 18 146/95 97 Room Air 98.2 Intake and Output 07/04/16 07:00 Intake Total 1390 ml Output Total 1 ml Balance 1389 ml Intake Oral 1390 ml Stool Total 1 ml # Voids 9 # Bowel Movements 2 Physical Exam Physical Exam She is alert and seems to be in no acute distress and continues with weakness of antigravity muscles of both lower extremities,right more than left.She is participating with physical therapy and not yet decided on left AFO. Assessment Assessment Problems Medical Problems: (1) Exacerbation of multiple sclerosis Status: Acute (2) Influenza A Status: Acute Plan Plan of Care She may be better off transfer to rehab unit at [facility] as her neurologist is practising there. Comment Review of Relevant I have reviewed the following items bridgette (where applicable) has been applied. Labs Laboratory Tests Test 07/03/16 04:51 White Blood Count 7.3x10^3/uL (4.0-11.0) Red Blood Count 4.50x10^6/uL (3.50-5.40) Hemoglobin 13.2g/dL (12.0-15.5) Hematocrit 37.8% (36.0-47.0) Mean Corpuscular Volume 84fL (79-100) Mean Corpuscular Hemoglobin 29pg (25-35) Mean Corpuscular Hemoglobin Concent 35g/dL (31-37) Red Cell Distribution Width 13.7% (11.5-14.5) Platelet Count 259x10^3/uL (140-400) Neutrophils (%) (Auto) 54% (31-73) Lymphocytes (%) (Auto) 29% (24-48) Monocytes (%) (Auto) 9% (0-9) Eosinophils (%) (Auto) 8% (0-3) Basophils (%) (Auto) 1% (0-3) Neutrophils # (Auto) 3.9x10^3uL (1.8-7.7) Lymphocytes # (Auto) 2.1x10^3/uL (1.0-4.8) Monocytes # (Auto) 0.6x10^3/uL (0.0-1.1) Eosinophils # (Auto) 0.6x10^3/uL (0.0-0.7) Basophils # (Auto) 0.0x10^3/uL (0.0-0.2) Sodium Level 143mmol/L (136-145) Potassium Level 3.9mmol/L (3.5-5.1) Chloride Level 104mmol/L (98-107) Carbon Dioxide Level 28mmol/L (21-32) Anion Gap 11 (6-14) Blood Urea Nitrogen 18mg/dL (7-20) Creatinine 0.8mg/dL (0.6-1.0) Estimated GFR (Cockcroft-Gault) 91.9 Glucose Level 100mg/dL (70-99) Calcium Level 9.3mg/dL (8.5-10.1) Magnesium Level 1.9mg/dL (1.8-2.4) Microbiology 06/29/16 Urine Culture - Final, Complete 06/29/16 Urine Culture Result 1 (WILLAM) - Final, Complete 06/29/16 Antimicrobic Susceptibility - Final, Complete Medications Current Medications Sodium Chloride (Iv Sodium Chloride 0.9% 1000ml Bag) 1,000 ml @ 1,000 mls/hr 1X ONCE IV Last administered on 06/28/16 13:02; Start 06/28/16 at 12:15; Stop 06/28/16 at 13:14; Status DC Ketorolac Tromethamine (Toradol) 30 mg 1X ONCE IV Last administered on 13:03; Start 06/28/16 at 12:15; Stop 06/28/16 at 12:16; Status DC Oseltamivir Phosphate (Tamiflu) 75 mg 1X STAT PO Last administered on 13:05; Start 06/28/16 at 12:45; Stop 06/28/16 at 12:48; Status DC Ondansetron HCl 4 mg 4 mg PRN Q8HRS PRN IV NAUSEA/VOMITING; Start 06/28/16 at 13:00; Stop 06/29/16 at 13:10; Status DC Sodium Chloride (Iv Sodium Chloride 0.9% 1000ml Bag) 1,000 ml @ 125 mls/hr Q8H IV ; Start 06/28/16 at 13:30; Stop 06/28/16 at 17:43; Status DC Oseltamivir Phosphate 75 mg 75 mg BID PO Last administered on 07/03/16 09:15; Start 06/28/16 at 21:00; Stop 07/03/16 at 20:59; Status DC Potassium Chloride/Dextrose/ Sod Cl (KCl 20 Meq In D5W-1/2 NS) 1,000 ml @ 40 mls/hr Q24H IV Last administered on 07/02/16 02:36; Start 06/28/16 at 19:00; Stop 07/02/16 at 09:48; Status DC Enoxaparin Sodium (Lovenox 40mg Syringe) 40 mg Q24H SQ Last administered on 21:17; Start 06/28/16 at 21:00 Acetaminophen (Tylenol) 650 mg PRN Q4HRS PRN PO MILD PAIN / TEMP Last administered on 06/29/16 08:47; Start 06/28/16 at 17:45 Aspirin (Emiliano Aspirin) 325 mg DAILYWBKFT PO Last administered on 07/03/16 09: 15; Start 06/29/16 at 08:00 Baclofen (Lioresal) 10 mg BID PO ; Start 06/28/16 at 21:00; Stop 06/28/16 at 21: 00; Status DC Baclofen (Lioresal) 20 mg DAILY16 PO ; Start 06/29/16 at 16:00; Stop 06/29/16 at 16:00; Status DC Hydrochlorothiazide (Hydrodiuril) 25 mg DAILY PO Last administered on 09:15; Start 06/29/16 at 09:00 Levothyroxine Sodium (Synthroid) 100 mcg DAILY07 PO Last administered on 06:30; Start 06/29/16 at 07:00 Losartan Potassium (Cozaar) 50 mg DAILY PO Last administered on 07/03/16 09:16 ; Start 06/29/16 at 09:00 Multivitamins/ Calcium (Thera M Plus) 1 tab DAILY PO Last administered on 09:15; Start 06/29/16 at 09:00 Oxybutynin Chloride (Ditropan) 5 mg [id number] PO Last administered on 07/02/16 08 :42; Start 06/28/16 at 21:00; Stop 07/02/16 at 09:48; Status DC Potassium Chloride (Klor-Con) 20 meq DAILYWBKFT PO Last administered on 09:15; Start 06/29/16 at 08:00 Tizanidine HCl (Zanaflex) 4 mg QHS PO ; Start 06/28/16 at 21:00; Stop 06/28/16 at 21:00; Status DC Tizanidine HCl (Zanaflex) 2 mg BID PO Last administered on 06/30/16 09:29; Start 06/28/16 at 21:00; Stop 06/30/16 at 21:26; Status DC Ondansetron HCl (Zofran) 4 mg PRN Q6HRS PRN IV NAUSEA/VOMITING; Start 06/28/16 at 17:45 Baclofen (Lioresal) 10 mg DAILY08 PO Last administered on 07/03/16 09:14; Start 06/29/16 at 08:00 Baclofen (Lioresal) 20 mg BID@, PO Last administered on 07/03/16 21:17; Start 06/29/16 at 21:00 Tizanidine HCl (Zanaflex) 4 mg QHS PO Last administered on 07/03/16 21:18; Start 06/28/16 at 21:00 Clonidine HCl (Catapres) 0.1 mg PRN Q6HRS PRN PO HYPERTENSION, SEE COMMENTS; Start 06/28/16 at 18:00 Potassium Chloride (KCl Oral Soln) 40 meq 1X ONCE PO ; Start 06/29/16 at 09:00 ; Stop 06/29/16 at 14:19; Status DC Potassium Chloride (KCl Oral Soln) 40 meq 1X ONCE PO ; Start 06/29/16 at 14:15 ; Stop 06/29/16 at 14:22; Status DC Potassium Chloride (KCl Oral Soln) 40 meq ONCE ONCE PEG Last administered on 14:52; Start 06/29/16 at 14:30; Stop 06/29/16 at 14:32; Status DC Potassium Chloride (KCl Oral Soln) 40 meq 1X ONCE PEG ; Start 06/29/16 at 14:30 ; Stop 06/29/16 at 14:31; Status UNV Bisacodyl (Dulcolax Tab) 10 mg PRN DAILY PRN PO CONSTIPATION; Start 06/30/16 at 10:45 Senna/Docusate Sodium (Senna Plus) 1 tab PRN BID PRN PO CONSTIPATION; Start at 10:45 Tizanidine HCl (Zanaflex) 2 mg BID94 PO Last administered on 07/03/16 18:15; Start 07/01/16 at 09:00 Cefpodoxime Proxetil (Vantin) 100 mg BID PO Last administered on 07/03/16 21: 18; Start 07/01/16 at 11:00 Ascorbic Acid (Vitamin C) 500 mg DAILY PO Last administered on 07/03/16 09:15 ; Start 07/01/16 at 12:00 Active Scripts Active Reported Tizanidine Hcl 4 Mg Tablet 4 Mg PO DAILYBFRSUP Tizanidine Hcl 4 Mg Tablet 2 Mg PO DAILY07 Tizanidine Hcl 4 Mg Tablet 1 Tab PO QHS Multivitamins (Multivitamin) 1 Each Tablet 1 Each PO DAILY Hydrochlorothiazide Tablet (Hydrochlorothiazide) 12.5 Mg Tablet 1 Tab PO DAILY Baclofen 20 Mg Tablet 20 Mg PO BIDACLD Baclofen 10 Mg Tablet 10 Mg PO DAILY07 Losartan Potassium 50 Mg Tablet 50 Mg PO DAILY Aspirin 325 Mg Tablet 1 Tab PO DAILY [multivitamin] [tizanidine] [losartan] [baclofen] [hydrochlorothiazide] Vitals/I & O Vital Sign - Last 24 Hours 07/03/16 07/03/16 07/03/16 07/03/16 11:06 15:10 19:00 20:00 Temp 97.3 97.8 97.7 97.3 97.8 97.7 Pulse 61 63 63 Resp 18 16 20 B/P 132/85 137/80 118/74 Pulse Ox 95 93 99 O2 Delivery Room Air Room Air Room Air Room Air 07/03/16 07/04/16 07/04/16 23:40 03:41 07:15 Temp 97.9 97.7 98.2 97.9 97.7 98.2 Pulse 67 61 65 Resp 20 20 18 B/P 112/72 128/77 146/95 Pulse Ox 99 97 97 O2 Delivery Room Air Room Air Room Air Intake and Output 07/03/16 07/03/16 07/04/16 15:00 23:00 07:00 Intake Total 370 ml 720 ml 300 ml Output Total 1 ml Balance 370 ml 719 ml 300 ml KIMBERLY KAY MD Jul 04, 2016 09:58
[2016-07-04 11:00] VITALS: BP 122/86
[2016-07-04 15:06] VITALS: BP 131/90
--- NOTE | 2016-07-04 15:19 | PDOC ---
PROGRESS NOTES Assessment Assessment Influenza A MS Chronic left LE weakness. Degenerative L-spine joint and disc diseases. RECOMMENDATIONS/PLAN: She has been treated with baclofen. Continue Medical treatment. Lab: see orders. OT/PT. SUBJECTIVE: Feeling better. OBJECTIVE: No acute motor or sensory deficits. PAST MEDICAL AND SURGICAL HISTORY: Please see H&P ALLERGY: NKDA MEDICATIONS: Refer to MAR REVIEW OF SYSTEMS: Constitutional: No malnutrition, weight loss, cachexia. Head: No traumatic brain or head injury. Skin: No edema, or rash. Ear: No infection, tinnitus. Eyes: No vision loss, or diplopia. Nose: No bleeding or purulent discharges. Hearing: No hearing decrease. Neck: No recent injury. Cardiac: No DC, arrhythmia Pulmonary: No COPD. GI: No GI Ulcer, GI bleeding Urinary/genital: UTI. Endocrine: [id number]. Skeletomuscular: No muscular atrophy, deformity. Neurological: see HP. Psychiatric: Denies drug use/abuse. Otherwise, not [id number] review of systems. PHYSICAL EXAMINATION: General appearance in no acute distress. HEENT: Normocephalic and nontraumatic. Eyes, nose, ears, and throat are unremarkable. Hearing decrease. Neck is supple. No lymphadenopathy. No bruits are heard over the carotid artery. No Crepitus. Cardiovascular: S1, S2, regular rate and rhythm. Pulmonary: Clear to auscultation bilaterally. Abdomen: Bowel sounds are positive. Abdomen is soft, nontender, and nondistended. Extremities: No rash, lesions, or edema. No restriction of range of motion NEUROLOGICAL EXAMINATION: Awake. sitting in chair. Oriented to time, place and person. PERRL. EOMI. CN: no focal findings. Muscle tone: fluctuated. Muscle strength: right side and left UE 5, left LE 4+ DTR: 2 Plantar reflex: Flexor response bilaterally Gait: she walks with walker. Sensory exam: no acute abnormal findings. No obvious cerebellar signs elicited. F-T-N test fine. Objective Objective Vital Signs Date Time Temp Pulse Resp B/P Pulse Ox O2 Delivery O2 Flow Rate FiO2 07/04/16 15:06 97.5 66 17 131/90 97 Room Air 97.5 Intake and Output 07/04/16 07:00 Intake Total 1390 ml Output Total 1 ml Balance 1389 ml Intake Oral 1390 ml Stool Total 1 ml # Voids 9 # Bowel Movements 2 Vitals Signs Vitals VS - Last 72 Hours, by Label Date Time Temp Pulse Resp B/P Pulse Ox O2 Delivery O2 Flow Rate FiO2 07/04/16 15:06 97.5 66 17 131/90 97 Room Air 97.5 07/04/16 11:00 98.2 80 24 122/86 97 98.2 07/04/16 09:00 80 122/86 07/04/16 07:15 98.2 65 18 146/95 97 Room Air 98.2 07/04/16 03:41 97.7 61 20 128/77 97 Room Air 97.7 07/03/16 23:40 97.9 67 20 112/72 99 Room Air 97.9 07/03/16 20:00 Room Air 07/03/16 19:00 97.7 63 20 118/74 99 Room Air 97.7 07/03/16 15:10 97.8 63 16 137/80 93 Room Air 97.8 07/03/16 11:06 97.3 61 18 132/85 95 Room Air 97.3 07/03/16 09:16 56 146/84 07/03/16 08:10 Room Air 07/03/16 07:45 97.5 56 18 146/84 97 Room Air 97.5 Laboratory Laboratory Laboratory Tests Test 07/04/16 13:05 Creatine Kinase 60U/L (26-192) Thyroid Stimulating Hormone (TSH) 3.891uIU/mL (0.358-3.74) Microbiology 06/29/16 Urine Culture - Final, Complete 06/29/16 Urine Culture Result 1 (WILLAM) - Final, Complete 06/29/16 Antimicrobic Susceptibility - Final, Complete Comment Review of Relevant I have reviewed the following items bridgette (where applicable) has been applied. AKIN JIMENEZ MD Jul 04, 2016 15:19
[2016-07-04 22:14] LABS: VITAMIN D25(OH)TOTAL 34.9 ng/mL (30.0-100.0)
--- NOTE | 2016-07-05 09:51 | PDOC ---
Provider Note Provider Note discharge summary dictated # [id number] NOAH BAUGH MD Jul 05, 2016 09:51
--- NOTE | 2016-07-05 20:45 | DS ---
DATE OF DISCHARGE: 07/04/2016 CONSULTANTS: Dr. Mac and Dr. Taylor. FINAL DIAGNOSES: 1. Influenza type A. 2. Pseudo exacerbation of multiple sclerosis secondary to influenza type A. 3. Hypertension. 4. Hypothyroidism. 5. Mobility and self-care deficits secondary to influenza A 6. Pseudo exacerbation of her multiple sclerosis. 7. Urinary tract infection. 8. Neurogenic bladder. HOSPITAL COURSE: The patient is a 51-year-old -[place] female with history of multiple sclerosis, hypertension, hypothyroidism, neurogenic bladder, had an onset of 1-day history of fever and cough, decreased appetite and generalized weakness. She normally can use electric scooter and ____ short distances with a rolling walker in her home. She sought help at the [facility] Emergency Room, she was tested positive for influenza A, started on Tamiflu. She was subsequently admitted to the hospital. She did have a fever, generalized weakness. She was seen by Dr. Mac in consultation for physical rehabilitation and Dr. Taylor for Neurology and was noted to have pseudo exacerbation of her multiple sclerosis for influenza A. She received some IV fluids and eventually started eating and drinking better. She also had a urinary tract infection, treated with Vantin. She also had a neurogenic bladder. Oxybutynin was discontinued and she was started on Flomax for the urine retention. The patient had significant mobility and self-care deficits and received physical and occupational therapy and was dismissed to [facility] on 07/04/2016 for comprehensive therapy. She was dismissed on aspirin 325 mg every day; baclofen 10 mg in the morning, 20 mg in the afternoon and 20 mg at bedtime; hydrochlorothiazide 25 mg every day; levothyroxine 100 mcg every day; losartan 50 mg every day; multiple vitamin once a day; Flomax 0.4 mg every day; potassium chloride 20 mEq every day; tizanidine 2 mg b.i.d. and 4 mg at bedtime and the Vantin 100 mg b.i.d. to be discontinued on 07/08/2016. NOAH BAUGH MD DR: TONY/clay JOB#: [id number] / [id number]
== END 2016-07-04 07:30 | DRG 194 ==
LOC: ER 11:21 → ED HOLD 12:47 → 5 SOUTH 18:20
PROVIDERS: ADMIT Internal Medicine; ATTEND Internal Medicine
DX: J10.1 Influenza due to other identified influenza virus with other respiratory manifestations (principal); N39.0 Urinary tract infection, site not specified; B96.1 Klebsiella pneumoniae [K. pneumoniae] as the cause of diseases classified elsewhere; M51.36 Other intervertebral disc degeneration, lumbar region; E03.9 Hypothyroidism, unspecified; G35 Multiple sclerosis; E78.5 Hyperlipidemia, unspecified; I10 Essential (primary) hypertension; N31.9 Neuromuscular dysfunction of bladder, unspecified; E87.6 Hypokalemia; Z82.49 Family history of ischemic heart disease and other diseases of the circulatory system
CPT/HCPCS: 36415; 71010; 80048; 80053; 81001; 82306; 82550; 82607; 83735; 84443; 85027; 87086; 87186; 87804; 93005; 96361; 96374; J1650; J1885; J7030; 97110; 97116; 97150; 97530; 97535; 99285-25

== ENCOUNTER 2016-08-13 15:46 | Emergency (ER) | payer BC ==
[~2016-08-13] VITALS: Ht 165.1 cm; Wt 79.4 kg
[~2016-08-13 15:46] MED LIST changes: +BACL10TA PO; +BACL20TA PO; +HYDR12.58 PO; +LOSA50TA6 PO; +MULT1TAB52 PO; +TIZA4TAB PO
--- NOTE | 2016-08-13 16:53 | ED.ADGEN ---
Past Medical History Past Medical History: Hypertension, Other Additional Past Medical Histor: MS Past Surgical History: Other Additional Past Surgical Histo: eye sx x 2, myectomy, DETACHED RETINA R EYE Alcohol Use: None Drug Use: None Adult General Chief Complaint Chief Complaint: UPPER EXTREMITY PAIN HPI HPI Patient is a 51 year old female with a history of MS presents emergency department complaining of right shoulder pain for the last 3-1/2 hours. Patient denies any trauma or injury to the area. 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 She is right-hand dominant. She has taken nothing for the pain prior to arrival. She does take baclofen and tizanidine but has not had it today. Patient denies any dyspnea, nausea, vomiting, recent illness. Review of Systems Review of Systems Constitutional: Denies fever or chills. [] Eyes: Denies change in visual acuity. [] HENT: Denies nasal congestion or sore throat. [] Respiratory: Denies cough or shortness of breath. [] Cardiovascular: Denies chest pain or edema. [] GI: Denies abdominal pain, nausea, vomiting, bloody stools or diarrhea. [] : Denies dysuria. [] Musculoskeletal: Denies back pain or joint pain. [] Integument: Denies rash. [] Neurologic: Denies headache, focal weakness or sensory changes. [] Endocrine: Denies polyuria or polydipsia. [] Lymphatic: Denies swollen glands. [] Psychiatric: Denies depression or anxiety. [] Current Medications Current Medications Current Medications Medications (Trade) Dose Ordered Sig/Anil Start Time Stop Time Status Last Admin Dose Admin Acetaminophen/ Hydrocodone Bitart (Lortab 5/325) 2 tab 1X ONCE 08/13/16 17:15 08/13/16 17:16 DC 08/13/16 17:34 2 TAB Ketorolac Tromethamine (Toradol Im) 60 mg 1X ONCE 08/13/16 17:15 08/13/16 17:16 DC 08/13/16 17:10 60 MG Allergies Allergies Allergies Coded Allergies Type Severity Reaction Last Updated Verified No Known Drug Allergies 06/10/14 No Physical Exam Physical Exam Constitutional: Well developed, well nourished, no acute distress, non-toxic appearance. [] HENT: Normocephalic, atraumatic, bilateral external ears normal, oropharynx moist, no oral exudates, nose normal. [] Eyes: PERRLA, EOMI, conjunctiva normal, no discharge. [] Neck: Normal range of motion, no tenderness, supple, no stridor. [] Cardiovascular:Heart rate regular rhythm, no murmur [] Lungs & Thorax: Bilateral breath sounds clear to auscultation [] Abdomen: Bowel sounds normal, soft, no tenderness, no masses, no pulsatile masses. [] Skin: Warm, dry, no erythema, no rash. [] Extremities: Tenderness palpation along her bicipital tendon groove, no obvious signs of trauma or injury, no cyanosis, no clubbing, no edema. [] Neurologic: Alert and oriented X 3, no focal deficits noted. [] Psychologic: Affect normal, judgement normal, mood normal. [] Current Patient Data Vital Signs Vital Signs Date Time Temp Pulse Resp B/P Pulse Ox O2 Delivery O2 Flow Rate FiO2 08/13/16 16:43 98.0 67 20 175/94 Room Air 98.0 EKG EKG [] Radiology/Procedures Radiology/Procedures [] Course & Med Decision Making Course & Med Decision Making Pertinent Labs and Imaging studies reviewed. (See chart for details) Patient received Toradol and Farrell here in the emergency Department with good effect. She is able to move that arm 8 without any difficulty. She will be sent home with a prescription for Farrell as well as supportive care and follow-up instructions [] Dragon Disclaimer Dragon Disclaimer This electronic medical record was generated, in whole or in part, using a voice recognition dictation system. PEDRO SKY MD Aug 13, 2016 16:53
[2016-08-13] MEDS ORDERED: HYDROCODONE/APAP 5/325MG TABLET. PO ONE (17:15)
[2016-08-13] MEDS ORDERED: KETOROLAC TROMETHAMINE 60 MG/2 ML INJ. IM ONE (17:15)
[2016-08-13] MEDS ORDERED: HYDR-971 PO (18:20)
[2016-08-13 18:30] VITALS: BP 144/80
== END 2016-08-13 19:05 | disposition home or self-care (01) ==
LOC: ER 15:46
DX: M25.511 Pain in right shoulder (principal); I10 Essential (primary) hypertension; I05.0 Rheumatic mitral stenosis
CPT/HCPCS: 96372; 99284; J1885